=== PATIENT | male | born 1940 | race Caucasian/White ===

== ENCOUNTER → 2017-02-18 | Outpatient (CLI) | payer OTHER ==
[~2017-02-18] MED LIST: IBUP-1449 PO; MULT-1027 PO; NAPR-1169 PO
== END | disposition home or self-care (01) ==
LOC: C.LAB 10:41
PROVIDERS: ATTEND Urology
DX: C61 Malignant neoplasm of prostate (principal)

== ENCOUNTER → 2017-03-25 | Outpatient (CLI) | payer OTHER ==
[2017-03-25 17:49] LABS: ALT/SGPT 31 U/L (12-78); AST/SGOT 18 U/L (15-37); BLOOD UREA NITROGEN 17 mg/dl (7-18); BUN/CREATININE RATIO 15.1 (10-20); CALCIUM 9.7 mg/dl (8.5-10.1); CARBON DIOXIDE 30 mmol/L (21-32); CHLORIDE 105 mmol/L (98-107); GLUCOSE 102 mg/dl (70-99); POTASSIUM 4.1 mmol/L (3.5-5.1); SODIUM 140 mmol/L (136-145)
[2017-03-25 17:50] LABS: ALB/GLOB RATIO 1.1 (0.9-2); ALKALINE PHOSPHATASE 74 U/L (45-117)
== END | disposition home or self-care (01) ==
LOC: C.LABBFT 10:07
PROVIDERS: ATTEND Nurse Practitioner
DX: M54.5 Low back pain (principal)

== ENCOUNTER → 2017-03-25 | Outpatient (CLI) | payer OTHER ==
--- NOTE | 2017-03-25 14:55 | DIAGNOSTIC IMAGING REPORT ---
LEFT KNEE 1 OR 2 VIEWS ROUTINE CLINICAL HISTORY: Left knee pain. COMPARISON: None FINDINGS: Alignment of the left knee is anatomic. There is no acute fracture or joint effusion. A small bone island within the proximal left tibia is incidentally noted. Joint spaces are preserved. IMPRESSION: Unremarkable left knee radiographs. Electronically signed by: Virgil Dukes M.D. 03/25/2017 2:54 PM Dictated Date/Time: 03/25/2017 2:52 PM
== END | disposition home or self-care (01) ==
LOC: C.RAD 14:36
PROVIDERS: ATTEND Nurse Practitioner
DX: M25.562 Pain in left knee (principal); M54.5 Low back pain

== ENCOUNTER → 2017-03-28 | Outpatient (CLI) | payer OTHER ==
[~2017-03-28] MED LIST changes: +GADAVIST IV PRN
--- NOTE | 2017-03-28 08:12 | DIAGNOSTIC IMAGING REPORT ---
MRI LUMBAR SPINE COMBINATION CLINICAL HISTORY: C61 Prostate [id number] Low back pain radiating to left legMRI6 TECHNIQUE: Sagittal and axial T1, T2 and STIR images were obtained. Imaging was performed before and after the administration of 6.5 cc of intravenous Gadavist. COMPARISON STUDY: No previous studies for comparison. OBSERVATIONS: The vertebral bodies and posterior elements appear intact. There is no abnormal bony signal present to suggest a marrow replacement process. L1-2: No disc protrusions or extrusions. No evidence of spinal canal or neural foraminal compromise. L2-3: There is a minor circumferential disc bulge. There is no significant spinal or foraminal stenosis L3-4: There is a mild circumferential disc bulge. There is mild spinal stenosis. There is no significant foraminal narrowing. L4-5: There is a small left paracentral disc protrusion. There is a left posterior central osteophytic spurring. There is anterior thecal sac deformity. There is mild spinal stenosis. There is mild bilateral foraminal narrowing L5-S1: There are postsurgical changes of a left hemilaminectomy. No disc herniations are visualized. There is no spinal or foraminal stenosis. The conus medullaris and cauda equina appear normal. Postcontrast images reveal no pathologically enhancing lesions. On sagittal images, there is a suggestion of a T11-12 central disc protrusion IMPRESSION: 1. No evidence of pathologic marrow replacement 2. Probable T11-T12 central disc protrusion. 3. Disc bulge and mild spinal stenosis the L3-4 level 4. Left paracentral disc protrusion with associated bony spurring at the L4-5 level. This results in thecal sac deformity and mild spinal stenosis. There is mild bilateral foraminal narrowing 5. Postsurgical changes at the L5-S1 level. Electronically signed by: Gene Morales M.D. 03/28/2017 8:11 AM Dictated Date/Time: 03/28/2017 8:05 AM
== END | disposition home or self-care (01) ==
LOC: C.MRI 06:48
PROVIDERS: ATTEND Nurse Practitioner
DX: C61 Malignant neoplasm of prostate (principal); M54.5 Low back pain; M51.26 Other intervertebral disc displacement, lumbar region

== ENCOUNTER → 2017-09-04 | Outpatient (CLI) | payer OTHER ==
[~2017-09-04] MED LIST changes: -GADAVIST IV PRN
== END | disposition home or self-care (01) ==
LOC: C.LAB 13:21
PROVIDERS: ATTEND Urology
DX: C61 Malignant neoplasm of prostate (principal)

== ENCOUNTER → 2018-03-10 | Outpatient (CLI) | payer OTHER | END | disposition home or self-care (01) | LOC: C.LAB 13:28 | PROVIDERS: ATTEND Urology | DX: C61 Malignant neoplasm of prostate (principal) ==

== ENCOUNTER 2019-03-21 12:58 | Inpatient (IN) ==
--- OUTSIDE RECORDS SUMMARY | 2019-03-21 13:01 | External Medical Summary | Continuity of Care Document ---
:1940 Author Name Masoud Mace, Provider Address Unavailable Unavailable , Care Team Providers Name Role Phone [email or web address] YASMANY RAMON M.D. Unavailable Unavailable Unavailable Unavailable Unavailable Problems Hypertension (401.9) (I10) Malignant neoplasm of prostate (185) (C61) Urinary symptom or sign (788.99) (R39.9) Malignant neoplasm of prostate (185) (C61) Neoplasm of prostate, malignant (185) (C61) Malignant neoplasm metastatic to bone (198.5) (C79.51) Sciatica (724.3) (M54.30) Low back pain radiating to left leg (724.2) (M54.5) Knee pain (719.46) (M25.569) Ecchymosis (459.89) (R58) Allergies and Adverse Reactions No Known Drug Allergies (Allergy) Medications Lupron Depot (6-Month) 45 MG Intramuscul ar Kit; INJECT 45 MG Intramuscular Medication to be administered in office Nakita Mcdonough Start: 019 Refills: 0 Status: Admin Reques norma Naproxen 500 MG Oral Tablet; TAKE 1 TABLET EVERY 12 HO URS WITH FOOD. GÓMEZ Osuna Start: 25-Mar-2017 Quantity: 60 Refills: 1 Alfuzosin HCl ER 10 MG Oral Tablet Exten ded Release 24 Hour; TAKE 1 TABLET Daily after supper Nakita Mcdonough Start: 06-Jan-2019 Quantity: 90 Refills: 3 Potassium 75 MG TABS; TAKE 3 TABLET Weekly Start: 11-Jul-2012 Refills: 0 Multi-Vitamin Oral Tablet; TAKE 1 TABLET DAILY. Start: 11-Jul-2012 Refills: 0 Procedures Total PSA Date: 23-Feb-2019 History of Back Surgery Status: Complete d Immunizations Tetanus On: 27-Apr-2010 0:00 Family History Unknown Family Member Family history of Father At Age ___ Status: Active Comments: Family History Family history of Mother At Age ___ Status: Active Comments: Family History Family history of Prostate Cancer (V16.42) Status: Active Comments: Family History Family history of Heart Disease (V17.49) Status: Active Comments: Family History Grandfather Family history of Prostate Cancer (V16.42) Status: Active Father Family history of Heart Disease (V17.49) Status: Active Social History - Smoking Status Former smoker Plan of Treatment Planned Encounters Appointment; Maxim Mcdonough M.D. Start: 31-Aug-2019 10:15 Request Planned Observations Planned Goals not documented Results No Known Results Results not documented Encounters Appointment; Maxim Mcdonough M.D. 23-Feb-2019 10:30 Encounter Diagnosis: Problem not documented Appointment; Maxim Mcdonough M.D. 20-Jan-2019 13:30 Encounter Diagnosis: Problem not documented Appointment; Urology, Room 8 20-Jan-2019 13:20 Encounter Diagnosis: Problem not documented Appointment; Maxim Mcdonough M.D. 06-Jan-2019 14:15 Encounter Diagnosis: Problem not documented Appointment; Urology, Nursing [facility] 29-Dec-2018 13:00 Encounter Diagnosis: Problem not documented Appointment; Angela Osuna CRNP 29-Oct-2018 16:30 Encounter Diagnosis: Problem not documented Appointment; [facility], Nurse 15-Oct-2018 11:00 Encounter Diagnosis: Problem not documented Appointment; Maxim Mcdonough M.D. 08-Sep-2018 16:45 Encounter Diagnosis: Problem not documented Appointment; Maxim Mcdonough M.D. 11-Mar-2018 9:45 Encounter Diagnosis: Problem not documented Appointment; Maxim Mcdonough M.D. 21-Oct-2017 11:10 Encounter Diagnosis: Problem not documented Appointment; Maxim Mcdonough M.D. 09-Sep-2017 10:20 Encounter Diagnosis: Problem not documented Appointment; Angela Osuna CRNP 25-Mar-2017 14:00 Encounter Diagnosis: Problem not documented Appointment; Maxim Mcdonough M.D. 31-Aug-2019 10:15 Encounter Diagnosis: Problem not documented
[2019-03-21 13:42] LABS: Basophils # (auto) 0.01 K/uL (0-0.2); Basophils % (auto) 0.1 %; Hematocrit (blood only) 38.2 % (42-52); Hemoglobin 13.9 g/dL (14.0-18.0); Immature Granulocytes # (auto) 0.03 K/uL (0.00-0.02); Immature Granulocytes % (auto) 0.3 %; Lymphocytes # (auto) 0.95 K/uL (1.2-3.4); Lymphocytes % (auto) 8.3 %; Mean Corpuscular Hgb Conc 36.4 g/dL (32-36); Mean Corpuscular Volume 88.4 fL (80-100); Mean Platelet Volume 9.5 fL (7.4-10.4); Monocytes # (auto) 0.54 K/uL (0.11-0.59); Monocytes % (auto) 4.7 %; Neutrophils # (auto) 9.93 K/uL (1.4-6.5); Neutrophils % (auto) 86.6 %; Platelet Count 254 K/uL (130-400); RDW Coefficient of Variation 13.4 % (11.5-14.5); RDW Standard Deviation 43.8 fL (36.4-46.3); Red Blood Count 4.32 M/uL (4.7-6.1); White Blood Count 11.46 K/uL (4.8-10.8)
[2019-03-21 13:58] LABS: BUN Creatinine Ratio 8.4 (10-20); Calcium 10.3 mg/dl (8.5-10.1); Creatinine Clr Calc Pharmacy 15.3 ml/min; Est GFR (African American) 19.1; Est GFR (Non-African American) 16.5
[2019-03-21 14:01] LABS: Globulin 4.2 gm/dl (2.5-4.0); Total Protein 8.2 gm/dl (6.4-8.2)
[2019-03-21] MEDS ORDERED: fentaNYL citrate 100 MCG/2 ML VIAL IV STA (14:15)
[2019-03-21] MEDS ORDERED: PIPERACILLIN/TAZOBACTAM 4.5 GM/120 ML BAG IV ONE (15:08)
[2019-03-21] MEDS ORDERED: PIPERACILL/TAZOBAC CONSULT ACTIVE PRN (15:08)
[2019-03-21 15:15] LABS: Appearance Urine Cloudy (Clear); Bilirubin Urine Negative (Negative); Blood Urine 3+ (Negative); Epithelial Cell Urine Auto >30 /lpf (0-5); Glucose Urine UA Negative (Negative); Ketones Urine 2+ (Negative); Leukocyte Esterase Urine 1+ (Negative); Nitrite Urine Negative (Negative); Protein Urine 1+ (Negative); RBC Urine Automated >30 /hpf (0-4); Specific Gravity Urine 1.022 (1.000-1.030); Urobilinogen Urine Negative (Negative)
[2019-03-21 15:17] LABS: Color Urine Amber
[2019-03-21] MEDS ORDERED: CIPROFLOXACIN 400 MG/200 ML BAG IV STA (15:18)
--- NOTE | 2019-03-21 15:21 | CT Scan Report ---
CT OF THE ABDOMEN AND PELVIS WITHOUT CONTRAST CLINICAL HISTORY: Abdominal pain suprapubic, prostate CA, hematuria, ARF. COMPARISON STUDY: No previous studies for comparison. TECHNIQUE: Axial images of the abdomen and pelvis were obtained without IV contrast. Images were revi ewed in the axial, sagittal, and coronal planes. Automated exposure control was utilized for the deepak dy. A dose lowering technique was utilized adhering to the principles of ALARA. FINDINGS: A cyst adjacent to the distal IVC is noted. No pneumatosis, pneumoperitoneum or portal veno us gas is present. No renal, ureteral or bladder calculi are present. There is no hydronephrosis or h ydroureter. A Galloway balloon is present within the bladder. There is trace gas within the bladder. Mod erate bladder wall thickening is noted. The prostate is moderately enlarged. There is extensive low-a ttenuation extraperitoneal fluid centered anterior to the bladder. Multiple locules of extraluminal g as are present within the extraperitoneal space. There is no pneumoperitoneum. Adjacent infiltration is noted. A small amount of intraperitoneal fluid is also noted. Unenhanced images of the liver, sple en, adrenal glands, kidneys and pancreas are unremarkable. Is no biliary or pancreatic ductal dilatat ion. There is no evidence for a bowel obstruction. Note is made of colonic diverticulosis without bob dence for acute diverticulitis. There are no suspicious osseous lesions. IMPRESSION: 1. Extraperitoneal fluid with multiple locules of extraluminal gas anterior to the bladder. Galloway bal loon within the bladder with bladder wall thickening and enlargement of the prostate. The findings ar e nonspecific but raise the possibility of an extraperitoneal bladder injury. No pneumoperitoneum. Ho wever, intraperitoneal bladder injury cannot be excluded given small amount of peritoneal fluid. Find ings discussed with Dr. Hinds at time of dictation. 2. No urinary calculi or hydronephrosis. 3. Colonic diverticulosis without evidence for acute diverticulitis. Electronically signed by: Virgil Dukes M.D. 03/21/2019 3:19 PM
[2019-03-21 15:26] LABS: Bacteria Urine Automated 1+ (Negative)
--- NOTE | 2019-03-21 15:43 | History & Physical Report ---
Date of Service March 21, 2019 Assessment & Plan (1) Ruptured bladder: Patient is ruptured bladder is undetermined whether it is traumatic or not it could be related to the progression of his prostate cancer. Medline search reveals this is typically treated conservatively with a good bladder drainage. Because of concern of air seen in the retroperitoneal space patient be continued on antibiotics with ciprofloxacin urine culture is been sent (2) Hypertension: Patient's blood pressure is elevated in the ER is not clear whether this is situational long-standing he does have a history of hypertension. Patient is in some pain. Currently will only have PRN antihypertensive medications unless this becomes a trend and then we will perhaps use more of a standard of routine 1. (3) Prostate cancer: Patient's prostate cancer was diagnosed in 2000 he is been without treatment since that time. Is unclear whether this may become friable and created a rupture however it would not explain the evidence of air seen. Urology will be consulted (4) Acute kidney injury: Patient is acute kidney injury is unclear what his baseline creatinine his baseline GFR is. If this is from obstructive uropathy as suggested by his history this should improve with drainage of his bladder. We will follow his renal function and not involve urology unless he has problems with stubbornness of renal function improvement or problems with acid-base disorder or potassium. (5) DVT prophylaxis: Because of his hematuria, I am hesitant to use chemoprophylaxis for DVT at this time. He however does have malignancy which places him at high risk. If his hematuria reduces with Galloway catheter drainage consideration for chemoprophylaxis for DVT should be undertaken History of Present Illness Primary Care Provider: Ankur Aden MD 78-year-old male with a history of untreated prostate cancer since 2000 is having difficulty urinating for several months. He is been discussing this with Dr. Huston but is been resistant to any type of therapy or treatment for his prostate cancer or his urinary urgency and difficulty with urination. 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 He had an old catheter at home which he did use at some point in the distant past perhaps associated with his spine surgery, a self cath himself. He says he felt catheterization what easy and he did produce urine however he developed persistent continual sharp crampy lower abdominal pain below the umbilicus. Patient presented to the emergency department a CT scan was obtained it appears she is a ruptured bladder with air-fluid levels in his retroperitoneal space anteriorly. It is not felt this is in his peritoneal space at this time. Urology on-call was contacted and they felt this could be treated conservatively we will follow in consultation Patient still believes he did not do anything out of the ordinary or use any additional force to create such an issue. Patient also has acute kidney injury likely based on obstructive uropathy from his growing prostate cancer. His creatinine is 3.4 without evidence of acidosis or hyperkalemia Allergies Allergy/AdvReac Type Severity Reaction Status Date / Time No Known Allergies Allergy Mild Unverified 04/05/15 14:05 Home Medications Home Medications Medication Instructions Recorded Confirmed Type alfuzosin 10 mg PO QPM 03/21/19 03/21/19 History Past Med/Surg History Medical History UTI (urinary tract infection) (Resolved) Acute kidney injury BPH (benign prostatic hyperplasia) GERD (gastroesophageal reflux disease) Hypertension Prostate cancer Ruptured bladder Surgical History H/O inguinal hernia repair History of lumbar laminectomy Hx of appendectomy Family History Father Stroke Other No pertinent family history Social History marital status: Current Living Situation: Spouse Feels Safe at Home: Yes Smoking Status: Former smoker Hx Alcohol Use: Yes (Occasional) Review of Systems Review of Systems: ROS: well nourished well developed. No double vision blurry vision No problems with speech or swallowing No palpitations, chest pain or pressure No Wheezing or breathing issues Centralized lower abdominal pain which is worse with movement Urinary frequency and difficulty urinating now with bloody urine No focal joint pain or muscle pain No skin rashes or oral lesions No unusual bruising or bleeding No focused back pain or numbness or loss of strength No changes in memory or confusion Physical Exam Physical Exam: The patient appeared well nourished and normally developed. Vital signs as documented. Some hypertension Head exam is unremarkable. normocephalic, atraumatic Neck is without jugular venous distension, thyromegaly, or lymphademopathy Lungs are clear to auscultation and percussion. Cardiac exam reveals Rhythm is regular. First and second heart sounds normal. Abdominal exam reveals hypoactive bowel sounds tender to the lower quadrant some rebound some guarding Extremities are nonedematous and both pedal pulses are present Neurologic exam is A&Ox3, no focal deficits, strength is equal bilateral Psychologically seems neither anxious or depressed Skin is warm Dry without bruises or lesions Results & Data Vital Signs (Past 12 Hours) Vital Signs Temp Pulse Resp BP Pulse Ox 03/21/19 13:00 36.6 C 94 H 18 191/92 H [address] abdomen and pelvis without contrast : Extraperitoneal fluid with multiple locules of extraluminal gas anterior to the bladder. Galloway balloon within the bladder with bladder wall thickening and enlargement of the prostate. The findings are nonspecific but raise the possibility of an extraperitoneal bladder injury. No pneumoperitoneum. However, intraperitoneal bladder injury cannot be excluded given small amount of peritoneal fluid. No urinary calculi or hydronephrosis. Colonic diverticulosis without evidence for acute diverticulitis
[2019-03-21] MEDS ORDERED: MoRPHine SULFATE 2 MG/ML CARP IV PRN (17:32)
[2019-03-21] MEDS ORDERED: ONDANSETRON INJ 2 MG/ML 2 ML VIAL IV PRN (17:32)
[2019-03-21] MEDS ORDERED: cloNIDine HCl 0.1 MG TAB PO PRN (17:32)
[2019-03-21] MEDS ORDERED: ACETAMINOPHEN 500 MG TAB PO PRN (17:32)
--- NOTE | 2019-03-21 18:32 | Emergency Department Note ---
Entered by Claudia Cheney acting as a scribe for Josselin Hinds MD History of Present Illness General Chief complaint: Urinary Symptoms Stated complaint: THINKS HE HAS A BLADDER/KIDNEY INFECTION Source: patient History of Present Illness Onset (ago): day(s) (yesterday morning) Location: abdomen (lower left) Severity: similar to prior episodes (UTI from 2001) Maximum Pain Intensity: 9 Quality: + other (urinary symptoms) Associated symptoms: + other (Positive burning with urination, blood in his urine, blocked catheter, lower left sided abdominal pain) The patient is a 78 year old male who presents to the Emergency Room with complaints of urinary symptoms beginning yesterday morning. He states yesterday morning, he had blood in his urine and burning with urination. He reports this morning he had difficulty with urination, so he put in a catheter that he had from a previous UTI in 2001 and there was bloody urine output again and he believes the catheter is blocked. The patient is unsure if his bladder feels full and he believes he may have a bladder infection. Pt has lower left sided abdominal pain and states this feels similar to his episode from 2001. Pt has prostate cancer and follows with Dr. Shelton, Oncology. Home Medications Home Medications Medication Instructions Recorded Confirmed Type alfuzosin 10 mg PO QPM 03/21/19 03/21/19 History Allergies Allergy/AdvReac Type Severity Reaction Status Date / Time No Known Allergies Allergy Mild Unverified 04/05/15 14:05 Past Med/Surg History Social History Preferred Language: Telugu Communication Ability: Effective Director Of Hospitality Required: No Beliefs That Will Affect Care: None marital status: Current Living Situation: Significant Other Other Information That Helps Us Care for You: No Feels Safe at Home: Yes Safety Concerns: Feels Safe At This Time Smoking Status: Never smoker Do You Dip or Chew Tobacco: No Hx Alcohol Use: Yes Alcohol type: beer Hx Substance Use: No Review of Systems See HPI for pertinent positives & negatives. and A total of 10 systems reviewed and were otherwise negative Physical Exam Vital Signs Vital Signs - 24 hr 03/21/19 23:39 03/22/19 07:12 03/22/19 15:54 Temperature 36.8 C 36.9 C 36.9 C Temperature Source Oral Oral Oral Pulse Rate [Finger] 76 79 87 Respiratory Rate 18 16 16 Respiratory Depth Normal Normal Blood Pressure [Left Arm] 168/72 H 147/76 H 163/72 H Blood Pressure Mean [Left Arm] 104 99 102 Blood Pressure Position [Left Arm] Lying Lying Lying Pulse Oximetry 98 97 95 Oxygen Delivery Method Room Air Room Air Room Air Vital signs reviewed. General: Well-appearing male, in no significant distress. HEENT: No scleral icterus, PERRLA, neck supple. Atraumatic. Cardiovascular: Regular rate and rhythm, no extra sounds. Pulmonary: Clear to auscultation bilaterally, normal work of breathing. Abdomen: Soft, positive bowel sounds. Slightly distended abdomen with tenderness to the bilateral lower quadrant. Positive guarding Musculoskeletal: Atraumatic, no peripheral edema. Neurologic: Patient awake alert and oriented x 3 Skin: Warm, dry, no rash Course 1310: The patient was evaluated in room A10. A complete history and physical examination was performed. 1528: I discussed the patient's case with Dr. Mcdonough, Urology. He recommends the patient be evaluated for further management. 1538: I discussed the patient's case with Dr. Bolden, [facility] Hospitalist. He will evaluate the patient for further management. Administered Medications Sodium Chloride (Nss 1000ml) 1,000 mls @ 125 mls/hr IV .Q8H SHANNON Stop: 04/20/19 17:44 Last Admin: 03/22/19 18:18 Dose: 125 mls/hr Documented by: [id number] Infusion: 03/22/19 17:41 Dose: 125 mls/hr Documented by: [id number] Admin: 03/22/19 09:41 Dose: 125 mls/hr Documented by: [id number] Infusion: 03/22/19 09:41 Dose: 125 mls/hr Documented by: [id number] Admin: 03/22/19 02:49 Dose: 125 mls/hr Documented by: [id number] Infusion: 03/22/19 02:49 Dose: 125 mls/hr Documented by: [id number] Infusion: 03/21/19 22:04 Dose: 125 mls/hr Documented by: [id number] Admin: 03/21/19 19:10 Dose: 125 mls/hr Documented by: [id number] Ciprofloxacin (Cipro) 400 mg in 200 mls @ 100 mls/hr IV Q12H SHANNON Stop: 03/31/19 09:59 Last Infusion: 03/22/19 09:43 Dose: 0 mls/hr Documented by: [id number] Admin: 03/22/19 07:43 Dose: 100 mls/hr Documented by: [id number] Piperacillin Sod/Tazobactam (Sod 3.375 gm/ Dextrose) 115 mls @ 28.75 mls/hr IV Q8H [facility]; Protocol Stop: 03/31/19 07:59 Last Infusion: 03/22/19 15:48 Dose: 0 mls/hr Documented by: [id number] Admin: 03/22/19 12:06 Dose: 28.8 mls/hr Documented by: [id number] Infusion: 03/22/19 07:47 Dose: 0 mls/hr Documented by: [id number] Admin: 03/22/19 04:00 Dose: 28.8 mls/hr Documented by: [id number] Infusion: 03/22/19 00:28 Dose: 0 mls/hr Documented by: [id number] Admin: 03/21/19 20:24 Dose: 28.8 mls/hr Documented by: [id number] Discontinued Medications Fentanyl Citrate (Fentanyl Citrate) 50 mcg IV NOW STA Stop: 03/21/19 14:16 Last Admin: 03/21/19 14:40 Dose: 50 mcg Documented by: [id number] Piperacillin Sod/Tazobactam Sod (Zosyn) 4.5 gm in 120 mls @ 240 mls/hr IV NOW ONE Stop: 03/21/19 15:37 Last Infusion: 03/21/19 16:35 Dose: 0 mls/hr Documented by: [id number] Admin: 03/21/19 16:05 Dose: 240 mls/hr Documented by: [id number] Ciprofloxacin (Cipro) 400 mg in 200 mls @ 200 mls/hr IV NOW STA Stop: 03/21/19 16:17 Last Infusion: 03/21/19 19:10 Dose: 0 mls/hr Documented by: [id number] Admin: 03/21/19 16:35 Dose: 200 mls/hr Documented by: [id number] Medical Decision Making Differential Diagnosis Differential diagnosis: Etiologies such as UTI, appendicitis, diverticulitis, PUD, biliary pathology, UTI, pancreatitis, obstruction, mesenteric ischemia, aortic pathology, infections, inflammatory bowel disease, renal colic, as well as others were entertained. Medical Records Attestation: I reviewed the patient's medical records. Home Medications Current Medication List: was personally reviewed by me Laboratory Data Attestation: I reviewed the patient's lab results. Result diagrams: 03/21/19 13:32 03/22/19 07:31 Lab Results 03/21/19 03/21/19 03/21/19 Range/Units 13:32 13:32 14:45 WBC 11.46 H (4.8-10.8) K/uL RBC 4.32 L (4.7-6.1) M/uL Hgb 13.9 L (14.0-18.0) g/dL Hct 38.2 L (42-52) % MCV 88.4 (80-100) fL MCH 32.2 (25-34) pg MCHC 36.4 H (32-36) g/dL RDW Std Deviation 43.8 (36.4-46.3) fL RDW Coeff of Shila 13.4 (11.5-14.5) % Plt Count 254 (130-400) K/uL MPV 9.5 (7.4-10.4) fL Immature Gran % (Auto) 0.3 % Neut % (Auto) 86.6 % Lymph % (Auto) 8.3 % [place] % (Auto) 4.7 % Eos % (Auto) 0.0 % Baso % (Auto) 0.1 % Immature Gran # (Auto) 0.03 H (0.00-0.02) K/uL Neut # (Auto) 9.93 H (1.4-6.5) K/uL Lymph # (Auto) 0.95 L (1.2-3.4) K/uL [place] # (Auto) 0.54 (0.11-0.59) K/uL Eos # (Auto) 0.00 (0-0.5) K/uL Baso # (Auto) 0.01 (0-0.2) K/uL Sodium 137 (136-145) mmol/L Potassium 4.0 (3.5-5.1) mmol/L Chloride 105 (98-107) mmol/L Carbon Dioxide 27 (21-32) mmol/L Anion Gap 5.0 (3-11) BUN 29 H (7-18) mg/dl Creatinine 3.42 H (0.6-1.4) mg/dl Est Cr Clr Drug Dosing 15.3 ml/min Est GFR ( Amer) 19.1 Est GFR (Non-Af Amer) 16.5 BUN/Creatinine Ratio 8.4 L (10-20) Glucose 113 H (70-99) mg/dl Calcium 10.3 H (8.5-10.1) mg/dl Total Bilirubin 1.0 (0.2-1) mg/dl AST 14 L (15-37) U/L ALT 23 (12-78) U/L Alkaline Phosphatase 81 (45-117) U/L Total Protein 8.2 (6.4-8.2) gm/dl Albumin 4.0 (3.4-5.0) gm/dl Globulin 4.2 H (2.5-4.0) gm/dl Albumin/Globulin Ratio 1.0 (0.9-2) Lipase 60 L (73-393) U/L Urine Color Ria Urine Appearance Cloudy A (Clear) Urine pH 6.0 (4.5-7.5) Ur Specific [place] 1.022 (1.000-1.030) Urine Protein 1+ H (Negative) Urine Glucose (UA) Negative (Negative) Urine Ketones 2+ H (Negative) Urine Blood 3+ H (Negative) Urine Nitrite Negative (Negative) Urine Bilirubin Negative (Negative) Urine Urobilinogen Negative (Negative) Ur Leukocyte Esterase 1+ H (Negative) Urine WBC (Auto) 10-30 H (0-5) /hpf Urine RBC (Auto) >30 H (0-4) /hpf U Hyaline Cast (Auto) 1-5 (0-5) /lpf U Epithel Cells (Auto) >30 H (0-5) /lpf Urine Bacteria (Auto) 1+ H (Negative) Ur Renal Epithelial Cell Not Reportable 03/22/19 Range/Units 07:31 WBC (4.8-10.8) K/uL RBC (4.7-6.1) M/uL Hgb (14.0-18.0) g/dL Hct (42-52) % MCV (80-100) fL MCH (25-34) pg MCHC (32-36) g/dL RDW Std Deviation (36.4-46.3) fL RDW Coeff of Shila (11.5-14.5) % Plt Count (130-400) K/uL MPV (7.4-10.4) fL Immature Gran % (Auto) % Neut % (Auto) % Lymph % (Auto) % [place] % (Auto) % Eos % (Auto) % Baso % (Auto) % Immature Gran # (Auto) (0.00-0.02) K/uL Neut # (Auto) (1.4-6.5) K/uL Lymph # (Auto) (1.2-3.4) K/uL [place] # (Auto) (0.11-0.59) K/uL Eos # (Auto) (0-0.5) K/uL Baso # (Auto) (0-0.2) K/uL Sodium 141 (136-145) mmol/L Potassium 3.6 (3.5-5.1) mmol/L Chloride 110 H (98-107) mmol/L Carbon Dioxide 26 (21-32) mmol/L Anion Gap 5.0 (3-11) BUN 13 D (7-18) mg/dl Creatinine 1.26 D (0.6-1.4) mg/dl Est Cr Clr Drug Dosing 46.6 ml/min Est GFR ( Amer) 63.8 Est GFR (Non-Af Amer) 55.0 BUN/Creatinine Ratio 10.0 (10-20) Glucose 113 H (70-99) mg/dl Calcium 8.5 D (8.5-10.1) mg/dl Total Bilirubin (0.2-1) mg/dl AST (15-37) U/L ALT (12-78) U/L Alkaline Phosphatase (45-117) U/L Total Protein (6.4-8.2) gm/dl Albumin (3.4-5.0) gm/dl Globulin (2.5-4.0) gm/dl Albumin/Globulin Ratio (0.9-2) Lipase (73-393) U/L Urine Color Urine Appearance (Clear) Urine pH (4.5-7.5) Ur Specific [place] (1.000-1.030) Urine Protein (Negative) Urine Glucose (UA) (Negative) Urine Ketones (Negative) Urine Blood (Negative) Urine Nitrite (Negative) Urine Bilirubin (Negative) Urine Urobilinogen (Negative) Ur Leukocyte Esterase (Negative) Urine WBC (Auto) (0-5) /hpf Urine RBC (Auto) (0-4) /hpf U Hyaline Cast (Auto) (0-5) /lpf U Epithel Cells (Auto) (0-5) /lpf Urine Bacteria (Auto) (Negative) Ur Renal Epithelial Cell Imaging Data Radiologist's Impression: Radiology results as stated below per my review and the radiologist's interpretation: CT OF THE ABDOMEN AND PELVIS WITHOUT CONTRAST CLINICAL HISTORY: Abdominal pain suprapubic, prostate CA, hematuria, ARF. COMPARISON STUDY: No previous studies for comparison. TECHNIQUE: Axial images of the abdomen and pelvis were obtained without IV contrast. Images were reviewed in the axial, sagittal, and coronal planes. Automated exposure control was utilized for the study. A dose lowering technique was utilized adhering to the principles of ALARA. FINDINGS: A cyst adjacent to the distal IVC is noted. No pneumatosis, pneumoperitoneum or portal venous gas is present. No renal, ureteral or bladder calculi are present. There is no hydronephrosis or hydroureter. A Galloway balloon is present within the bladder. There is trace gas within the bladder. Moderate bladder wall thickening is noted. The prostate is moderately enlarged. There is extensive low-attenuation extraperitoneal fluid centered anterior to the bladder. Multiple locules of extraluminal gas are present within the extraperitoneal space. There is no pneumoperitoneum. Adjacent infiltration is noted. A small amount of intraperitoneal fluid is also noted. Unenhanced images of the liver, spleen, adrenal glands, kidneys and pancreas are unremarkable. Is no biliary or pancreatic ductal dilatation. There is no evidence for a bowel obstruction. Note is made of colonic diverticulosis without evidence for acute diverticulitis. There are no suspicious osseous lesions. IMPRESSION: 1. Extraperitoneal fluid with multiple locules of extraluminal gas anterior to the bladder. Galloway balloon within the bladder with bladder wall thickening and enlargement of the prostate. The findings are nonspecific but raise the possibility of an extraperitoneal bladder injury. No pneumoperitoneum. However, intraperitoneal bladder injury cannot be excluded given small amount of peritoneal fluid. Findings discussed with Dr. Hinds at time of dictation. 2. No urinary calculi or hydronephrosis. 3. Colonic diverticulosis without evidence for acute diverticulitis. Electronically signed by: Virgil Dukes M.D. 03/21/2019 3:19 PM Blood Pressure Blood Pressure Findings: Elevated blood pressure Blood Pressure Disposition: further management by hospitalist [facility] Narrative This patient was evaluated and appeared to be in no significant distress. Patient's physical exam reveals significant tenderness to the bilateral lower quadrants with positive guarding. A Galloway catheter was placed and is draining a blood tinged urine. CT scan of the abdomen pelvis was performed and reveals free fluid and evidence of an extraperitoneal bladder rupture. This is likely secondary to the patient's self-catheterization. Clearly no irrigation of the Galloway catheter was performed. As the patient used an old catheter and "Vaseline" to catheterize earlier and had subsequent pain and pressure, passing clots, IV Zosyn was ordered. The patient was hydrated with normal saline solution. Case was discussed with Dr. Mcdonough of urology and the patient will be admitted to Dr. Bolden of the hospitalist service. Patient was informed of the findings and plan and agrees. Impression & Plan Bladder rupture, Acute renal failure Discharge Plan Visit Data *Final* Discharge Date/Time: 03/21/19 17:04 Chief Complaint: Urinary Symptoms Stated Complaint: THINKS HE HAS A BLADDER/KIDNEY INFECTION ED Provider: Josselin Hinds Discharge Problem: Bladder rupture, Acute renal failure Patient Disposition: Admitted As Inpatient Discharge Instructions Interventions: ED Discharge Assessment Last Done: 03/21/19 17:04 Discharge Problem: Acute renal failure Qualifiers: Acute renal failure type: unspecified Qualified Code(s): N17.9 - Acute kidney failure, unspecified The scribe's documentation has been prepared under my direction and personally reviewed by me in its entirety. I confirm that the note above accurately reflects all work, treatment, procedures, and medical decision making performed by me.
[2019-03-21] MEDS: SODIUM CHLORIDE 0.9% 1000ML 1,000 ML IV SCH (19:10)
--- NOTE | 2019-03-21 19:12 | Urology Consultation ---
Date of Consultation March 21, 2019 Assessment & Plan (1) Bladder rupture: Assessment Most likely bladder rupture from the patient's attempt at catheterizing himself Since this is extraperitoneal it can be managed conservatively with Galloway catheter drainage I would continue him on broad-spectrum antibiotics Follow his creatinine I again discussed possible palliative radiation which the patient again refused He also refused a oncology consult I did tell him that he is probably going to have the catheter for the rest of his life as the prostate cancer is probably obstructing his urethra He seems to be okay with this and does not want any further treatment other than the Lupron shots which is been getting for years History of Present Illness Attending Physician: Baldo Bolden MD History of Present Illness Patient is a 78-year-old white male with hormone refractory prostate cancer. He was diagnosed in 2000 with a [place] 4+4 adenocarcinoma with a PSA of 38 at that time he refused any treatment which was offered including prostatectomy or radiation. He was lost to follow-up until 2006 when he came in with urinary retention PSA at that time was up to 683. At that time he agreed to going on Lupron which was initiated. His PSA did drop. Recently though he has become hormone refractory he was placed on Xtandi but could not tolerate the medication due to nausea and vomiting. We have discussed treatment on multiple visits including the most last visit where we talked about seeing oncology for possible other treatments or radiation therapy for palliative radiation to the prostate he has been starting to have some troubles voiding and I thought the palliative radiation may improve that. Again though the patient refused any therapy other than the Lupron shots. He apparently had trouble voiding yesterday tried to pass a catheter and was unsuccessful and apparently either perforated the prostatic fossa or his bladder. He came in with lower abdominal pain. CT showed an extraperitoneal rupture of his urinary tract. He currently has a Galloway indwelling which is draining 600 cc of meka-colored urine he says his abdomen is a lot smaller than it was when he came in and the pain is much less he denies any nausea vomiting fevers or chills Allergies Allergy/AdvReac Type Severity Reaction Status Date / Time No Known Allergies Allergy Mild Unverified 04/05/15 14:05 Home Medications Home Medications Medication Instructions Recorded Confirmed Type alfuzosin 10 mg PO QPM 03/21/19 03/21/19 History Patient History Medical History UTI (urinary tract infection) (Resolved) Acute kidney injury BPH (benign prostatic hyperplasia) GERD (gastroesophageal reflux disease) Hypertension Prostate cancer Ruptured bladder Surgical History H/O inguinal hernia repair History of lumbar laminectomy Hx of appendectomy Social History marital status: Current Living Situation: Spouse Feels Safe at Home: Yes Smoking Status: Former smoker Hx Alcohol Use: Yes (Occasional) Physical Exam Physical Exam: Well-developed well-nourished white male in no acute distress Neurologically he is alert and oriented x3 Lungs clear to auscultation Abdomen is softly distended tender in the suprapubic region Remedies without clubbing cyanosis or edema Results & Data Vital Signs (Past 12 Hours) Vital Signs Temp Pulse Resp BP Pulse Ox 03/21/19 17:04 96 H 26 H 165/89 H 98 03/21/19 17:01 96 H 26 H 165/89 H 98 03/21/19 16:31 77 19 160/79 H 97 03/21/19 15:32 81 24 177/85 H 95 03/21/19 13:00 36.6 C 94 H 18 191/92 H 99 Laboratory Results Laboratory Results - last 24 hr 03/21/19 03/21/19 03/21/19 13:32 13:32 14:45 WBC 11.46 H RBC 4.32 L Hgb 13.9 L Hct 38.2 L MCV 88.4 MCH 32.2 MCHC 36.4 H RDW Std Deviation 43.8 RDW Coeff of Shila 13.4 Plt Count 254 MPV 9.5 Immature Gran % (Auto) 0.3 Neut % (Auto) 86.6 Lymph % (Auto) 8.3 [place] % (Auto) 4.7 Eos % (Auto) 0.0 Baso % (Auto) 0.1 Immature Gran # (Auto) 0.03 H Neut # (Auto) 9.93 H Lymph # (Auto) 0.95 L [place]christ # (Auto) 0.54 Eos # (Auto) 0.00 Baso # (Auto) 0.01 Sodium 137 Potassium 4.0 Chloride 105 Carbon Dioxide 27 Anion Gap 5.0 BUN 29 H Creatinine 3.42 H Est Cr Clr Drug Dosing 15.3 Est GFR ( Amer) 19.1 Est GFR (Non-Af Amer) 16.5 BUN/Creatinine Ratio 8.4 L Glucose 113 H Calcium 10.3 H Total Bilirubin 1.0 AST 14 L ALT 23 Alkaline Phosphatase 81 Total Protein 8.2 Albumin 4.0 Globulin 4.2 H Albumin/Globulin Ratio 1.0 Lipase 60 L Urine Color [place] Urine Appearance Cloudy A Urine pH 6.0 Ur Specific [place] 1.022 Urine Protein 1+ H Urine Glucose (UA) Negative Urine Ketones 2+ H Urine Blood 3+ H Urine Nitrite Negative Urine Bilirubin Negative Urine Urobilinogen Negative Ur Leukocyte Esterase 1+ H Urine WBC (Auto) 10-30 H Urine RBC (Auto) >30 H U Hyaline Cast (Auto) 1-5 U Epithel Cells (Auto) >30 H Urine Bacteria (Auto) 1+ H Ur Renal Epithelial Cell Not Reportable Diagnostic Findings Laboratory Results - last 24 hr 03/21/19 03/21/19 03/21/19 13:32 13:32 14:45 WBC 11.46 H RBC 4.32 L Hgb 13.9 L Hct 38.2 L MCV 88.4 MCH 32.2 MCHC 36.4 H RDW Std Deviation 43.8 RDW Coeff of Shila 13.4 Plt Count 254 MPV 9.5 Immature Gran % (Auto) 0.3 Neut % (Auto) 86.6 Lymph % (Auto) 8.3 [place] % (Auto) 4.7 Eos % (Auto) 0.0 Baso % (Auto) 0.1 Immature Gran # (Auto) 0.03 H Neut # (Auto) 9.93 H Lymph # (Auto) 0.95 L [place] # (Auto) 0.54 Eos # (Auto) 0.00 Baso # (Auto) 0.01 Sodium 137 Potassium 4.0 Chloride 105 Carbon Dioxide 27 Anion Gap 5.0 BUN 29 H Creatinine 3.42 H Est Cr Clr Drug Dosing 15.3 Est GFR ( Amer) 19.1 Est GFR (Non-Af Amer) 16.5 BUN/Creatinine Ratio 8.4 L Glucose 113 H Calcium 10.3 H Total Bilirubin 1.0 AST 14 L ALT 23 Alkaline Phosphatase 81 Total Protein 8.2 Albumin 4.0 Globulin 4.2 H Albumin/Globulin Ratio 1.0 Lipase 60 L Urine Color [place] Urine Appearance Cloudy A Urine pH 6.0 Ur Specific [place] 1.022 Urine Protein 1+ H Urine Glucose (UA) Negative Urine Ketones 2+ H Urine Blood 3+ H Urine Nitrite Negative Urine Bilirubin Negative Urine Urobilinogen Negative Ur Leukocyte Esterase 1+ H Urine WBC (Auto) 10-30 H Urine RBC (Auto) >30 H U Hyaline Cast (Auto) 1-5 U Epithel Cells (Auto) >30 H Urine Bacteria (Auto) 1+ H Ur Renal Epithelial Cell Not Reportable patient's CT was reviewed and appears that he has an extraperitoneal fluid collection outside the bladder probably urine Galloway catheter is within the bladder there does not appear to be an intraperitoneal rupture
[2019-03-21] MEDS: PIPERACILLIN/TAZOBACTAM 3.375 GM in DEXTROSE 5% 100 ML IV SCH (20:24)
[2019-03-22] MEDS: SODIUM CHLORIDE 0.9% 1000ML 1,000 ML IV SCH ×3 (02:49→18:18)
[2019-03-22] MEDS: PIPERACILLIN/TAZOBACTAM 3.375 GM in DEXTROSE 5% 100 ML IV SCH ×3 (04:00→21:45)
[2019-03-22] MEDS: CIPROFLOXACIN 400 MG/200 ML BAG IV SCH ×2 (07:43→20:11)
[2019-03-22 08:27] LABS: Calcium 8.5 mg/dl (8.5-10.1); Creatinine Clr Calc Pharmacy 46.6 ml/min; Est GFR (African American) 63.8; Potassium 3.6 mmol/L (3.5-5.1)
--- NOTE | 2019-03-22 10:42 | Urology Progress Note ---
Date of Service March 22, 2019 Subjective Patient is afebrile vital signs are stable Having some bladder spasms Patient says abdomen feels better than yesterday Urine output 1800 cc Creatinine down to 1.2 Physical exam Abdomen soft normal bowel sounds Extremity's without calf pain or edema Assessment Bladder/prostatic urethra injury We will need to keep the catheter for 3 to 4 weeks Since he was trying to cath himself because he could not void he may wind up keeping the catheter permanently he will need to be changed monthly especially since he refuses any treatment for his prostate cancer or prostatic urethral obstruction. I did explain this to him using to think about what he wants to do. Results & Data Vital Signs (Past 12 Hours) Vital Signs Temp Pulse Resp BP Pulse Ox 03/22/19 07:12 36.9 C 79 16 147/76 H 97 03/21/19 23:39 36.8 C 76 18 168/72 H 98
[2019-03-22] MEDS: OXYBUTYNIN CHLORIDE 5 MG TAB PO SCH (20:14)
--- NOTE | 2019-03-22 21:27 | Hospitalist Progress Note ---
Date of Service March 22, 2019 Assessment & Plan (1) Ruptured bladder: - Possibly related to trauma from self-cath vs progressive issues with prostate CA - Abdominal pain is improving currently no rigidity or guarding; plan for conservative management - Galloway catheter at this time and likely indefinitely given his ongoing urinary symptoms - UCx obtained and pending - Continue Ciprofloxacin at this time (2) Acute kidney injury: - This is likely in the setting of obstructive uropathy - was 3+ on admission and currently resolved at 1.26 - Continue to monitor Present on Admission?: Yes (3) Hypertension: - Chronic elevation in-house - Possibly situational but possibility of chronic - Clonidine Q8H PRN (4) Prostate cancer: - Diagnosed in 2000 - receives Lupron injections but has been reluctant to undergo any other forms of treatment/oncology referral (5) DVT prophylaxis: - SCDs; consideration for further DVT prophylaxis pending hematuria improvement Supervising Physician Co-Signing Physician Notes PA Supervision Note: I did not personally see or examine the patient today, but I verified all [place] points of BALAJI Mackay's assessment and plan with the following exceptions/additions: None Subjective Reports feeling a lot better today. Some mild tenderness in suprapubic region but not rigid or findings to suggest an acute abdomen. Is bloated and reports he is still moving his bowels without issue. Tolerating a diet and hoping to return home tomorrow. He verbalizes no other complaints. Review of Systems Constitutional: no fever and no chills Respiratory: no cough and no dyspnea Cardiovascular: no chest pain, no palpitations and no edema Gastrointestinal: + abdominal pain (suprapubic) and + diarrhea/loose stools; no nausea, no vomiting and no constipation Genitourinary: + dysuria (mild burning - improving) and + hematuria Physical Exam Constitutional: well developed and well nourished; no acute distress and not ill appearing Respiratory: normal respiratory effort, lungs clear to auscultation Cardiovascular: RRR, no murmur, no edema Gastrointestinal (Abdomen): Inspection/Auscultation: + abdomen distended and normal bowel sounds Percussion/Palpation: + abdomen tender (suprapubic) and abdomen soft; no guarding and abdomen not rigid Musculoskeletal: Head/Neck/Chest: normocephalic and head atraumatic Neurologic: moves all extremities Psychiatric: A+Ox3, euthymic affect Results & Data Vital Signs (Past 12 Hours) Vital Signs Temp Pulse Resp BP Pulse Ox 03/22/19 15:54 36.9 C 87 16 163/72 H 95
[2019-03-23] MEDS: SODIUM CHLORIDE 0.9% 1000ML 1,000 ML IV SCH ×2 (02:39→10:55)
[2019-03-23 07:23] LABS: Hematocrit (blood only) 30.9 % (42-52); Hemoglobin 10.9 g/dL (14.0-18.0); Mean Corpuscular Hgb Conc 35.3 g/dL (32-36); Mean Corpuscular Volume 88.8 fL (80-100); Mean Platelet Volume 9.3 fL (7.4-10.4); Platelet Count 182 K/uL (130-400); RDW Coefficient of Variation 13.7 % (11.5-14.5); RDW Standard Deviation 44.6 fL (36.4-46.3); Red Blood Count 3.48 M/uL (4.7-6.1); White Blood Count 5.88 K/uL (4.8-10.8)
[2019-03-23 07:56] LABS: BUN Creatinine Ratio 12.3 (10-20); Calcium 8.4 mg/dl (8.5-10.1); Creatinine Clr Calc Pharmacy 73.4 ml/min; Est GFR (African American) 100.6; Est GFR (Non-African American) 86.8; Potassium 3.4 mmol/L (3.5-5.1)
[2019-03-23] MEDS: CIPROFLOXACIN 400 MG/200 ML BAG IV SCH (08:27)
[2019-03-23] MEDS: OXYBUTYNIN CHLORIDE 5 MG TAB PO SCH ×2 (08:27→21:09)
--- NOTE | 2019-03-23 08:38 | Urology Progress Note ---
Date of Service March 23, 2019 Assessment & Plan (1) Prostate cancer: 78YO male with prostate cancer, bladder injury. Galloway in place, patient feeling better. Again discussed his disease. He is again offered radiation, oncology, and palliative care consults which he again declines. He is encouraged to think about his options and contact our office if he would like us to coordinate. Will arrange outpatient follow up with Dr. Mcdonough in 3-4 weeks, patient is agreeable to this. Likely cath change at that time. Will continue to intermittently follow along while patient remains in house. Please reconsult our service with additional questions/concerns. Subjective 78YO male with prostate cancer, bladder injury. Galloway in place, draining yellow urine. Patient feeling well. No fever/chills. No nausea/vomiting. Still some lower abdominal discomfort, likely bladder spasm. Review of Systems Review of Systems: All systems reviewed & are unremarkable except as noted in HPI & below Physical Exam Physical Exam: WN/WD NAD. No JVD, no edema. Resp effort normal. Abd soft, nontender. : bladder nondistended; Galloway in place, patent, draining yellow urine. A&O x 3, appropriate affect. Results & Data Vital Signs (Past 12 Hours) Vital Signs Temp Pulse Pulse Resp BP Pulse Ox 03/23/19 07:34 36.7 C 72 21 172/86 H 96 03/22/19 23:30 36.9 C 72 20 149/77 H 96
--- NOTE | 2019-03-23 17:37 | Hospitalist Progress Note ---
Date of Service March 23, 2019 Assessment & Plan (1) Ruptured bladder: - Possibly related to trauma from self-cath vs progressive issues with prostate CA - Abdominal pain is improving currently no rigidity or guarding; plan for conservative management -- Having spasmodic episodes but severe enough today he asked for morphine as he normally hasn't requested pain medication - Galloway catheter at this time and likely indefinitely given his ongoing urinary symptoms - UCx obtained and < 1000 colonies - Oxybutynin 5 mg BID - Continue Ciprofloxacin at this time - likely to complete 14 day course given prostatic issues - Urology following - discussed with [facility] today - ongoing conservative manage ment with F/U to be arranged by their office (2) Acute kidney injury: - This is likely in the setting of obstructive uropathy - was 3+ on admission and currently resolved at 0.80 - Continue to monitor (3) Hypertension: - Chronic elevation in-house - Possibly situational but possibility of chronic - Clonidine Q8H PRN (4) Prostate cancer: - Diagnosed in 2000 - receives Lupron injections but has been reluctant to undergo any other forms of treatment/oncology referral (5) DVT prophylaxis: - SCDs; consideration for further DVT prophylaxis pending hematuria improvement Disposition: Due to pain requiring IV morphine discussed remaining in-house to assess for further pain needs; Likely D/C tomorrow with Galloway and outpatient F/U with Urology 3-4 weeks and likely Galloway exchange at that time as long as pain is manageable Supervising Physician Co-Signing Physician Notes PA Supervision Note: I did not personally see or examine the patient today, but I verified all [place] points of BALAJI Hernandes's assessment and plan with the following exceptions/additions: None Subjective Reports feeling well today. Continues with pain but normally doesn't want medication for this. However, this afternoon he reports increased pain and did require IV Morphine. Reports its mostly a burning sensation and largely correlates when he is trying to move his bowels. He states he strains a little bit but is trying to be easy with this. States it does help him to walk around and does appear that he is having some bladder spasms Continues to make adequate urine and tolerating diet. States abdominal bloat is almost to his baseline. Review of Systems Constitutional: no fever and no chills Respiratory: no cough and no dyspnea Cardiovascular: no chest pain, no palpitations and no edema Gastrointestinal: + abdominal pain (suprapubic - spasmodic) and + diarrhea/loose stools; no nausea, no vomiting and no constipation Genitourinary: + dysuria (mild burning - improving) Physical Exam Constitutional: well developed and well nourished; no acute distress and not ill appearing Eyes: + anicteric sclerae ENMT: Ears: no hearing impairment Neck: normal visual inspection and trachea midline Respiratory: normal respiratory effort, lungs clear to auscultation Cardiovascular: RRR, no murmur, no edema Gastrointestinal (Abdomen): Inspection/Auscultation: + abdomen distended and normal bowel sounds Percussion/Palpation: + abdomen tender (suprapubic) and abdomen soft; no guarding and abdomen not rigid Musculoskeletal: Head/Neck/Chest: normocephalic and head atraumatic Skin: no rashes, warm and dry Neurologic: moves all extremities Psychiatric: A+Ox3, euthymic affect Results & Data Vital Signs (Past 12 Hours) Vital Signs Temp Pulse Pulse Resp BP Pulse Ox 03/23/19 15:00 36.5 C 67 17 158/75 H 98 03/23/19 07:34 36.7 C 72 21 172/86 H 96
[2019-03-23] MEDS: CIPROFLOXACIN 500 MG TAB PO SCH (21:09)
[2019-03-23] MEDS: OXYCODONE HCL IR 5 MG TAB (IMMEDIATE RELEASE) PO PRN (23:39)
[2019-03-24 07:17] VITALS: PULSE 74; TEMP 97.3; O2SAT 98
[2019-03-24] MEDS: OXYCODONE HCL IR 5 MG TAB (IMMEDIATE RELEASE) PO PRN ×2 (07:33→13:51)
[2019-03-24 07:38] LABS: BUN Creatinine Ratio 14.7 (10-20); Calcium 8.5 mg/dl (8.5-10.1); Creatinine Clr Calc Pharmacy 70.8 ml/min; Est GFR (African American) 99.1; Est GFR (Non-African American) 85.5; Potassium 3.5 mmol/L (3.5-5.1)
[2019-03-24 08:08] VITALS: BP 162/76
[2019-03-24] MEDS: CIPROFLOXACIN 500 MG TAB PO SCH (08:48)
[2019-03-24] MEDS: OXYBUTYNIN CHLORIDE 5 MG TAB PO SCH (08:48)
[2019-03-24 09:02] LABS: Hematocrit (blood only) 33.8 % (42-52); Hemoglobin 11.5 g/dL (14.0-18.0); Mean Corpuscular Volume 89.7 fL (80-100); Mean Platelet Volume 9.7 fL (7.4-10.4); Platelet Count 209 K/uL (130-400); RDW Coefficient of Variation 13.4 % (11.5-14.5); RDW Standard Deviation 44.2 fL (36.4-46.3); Red Blood Count 3.77 M/uL (4.7-6.1); White Blood Count 5.63 K/uL (4.8-10.8)
--- NOTE | 2019-03-24 14:41 | Discharge Summary ---
Date of Service March 24, 2019 Admission HPI Per Admitting Provider 78-year-old male with a history of untreated prostate cancer since 2000 is having difficulty urinating for several months. He is been discussing this with Dr. Huston but is been resistant to any type of therapy or treatment for his prostate cancer or his urinary urgency and difficulty with urination. In the intensive care nurse hours of 03/21 the patient felt he could not urinate at all. He had an old catheter at home which he did use at some point in the distant past perhaps associated with his spine surgery, a self cath himself. He says he felt catheterization what easy and he did produce urine however he developed persistent continual sharp crampy lower abdominal pain below the umbilicus. Patient presented to the emergency department a CT scan was obtained it appears she is a ruptured bladder with air-fluid levels in his retroperitoneal space anteriorly. It is not felt this is in his peritoneal space at this time. Urology on-call was contacted and they felt this could be treated conservatively we will follow in consultation Patient still believes he did not do anything out of the ordinary or use any additional force to create such an issue. Patient also has acute kidney injury likely based on obstructive uropathy from his growing prostate cancer. His creatinine is 3.4 without evidence of acidosis or hyperkalemia Admission Exam Per Admitting Provider The patient appeared well nourished and normally developed. Vital signs as documented. Some hypertension Head exam is unremarkable. normocephalic, atraumatic Neck is without jugular venous distension, thyromegaly, or lymphademopathy Lungs are clear to auscultation and percussion. Cardiac exam reveals Rhythm is regular. First and second heart sounds normal. Abdominal exam reveals hypoactive bowel sounds tender to the lower quadrant some rebound some guarding Extremities are nonedematous and both pedal pulses are present Neurologic exam is A&Ox3, no focal deficits, strength is equal bilateral Psychologically seems neither anxious or depressed Skin is warm Dry without bruises or lesions Principal Diagnosis Ruptured Bladder Discharge Exam General: Resting comfortably in no apparent distress; A&OX3 HEENT: NC/AT; PERRLA with EOMI; [place] conjunctiva, MMM. No erythema of posterior pharynx Neck: Supple and nontender Cardiac: RRR w/o murmurs, gallops or rubs Lungs: CTA bilaterally Abdomen: Bowel normoactive X 4; Tenderness to light palpation over suprapubic region Extremities: Warm. No edema present Neuro: No focal weakness Skin: No rash Discharge Data Allergies Allergy/AdvReac Type Severity Reaction Status Date / Time No Known Allergies Allergy Mild Unverified 04/05/15 14:05 Consultations 03/21/19 15:34 ED Decision to Admit Stat 03/21/19 17:32 Consult Case Management - Discharge Planning Routine Consult Urology Routine Ordered Studies 03/21/19 14:14 CT abd pelvis wo con Stat Hospital Course (1) Ruptured bladder: Possibly related to trauma from self-cath vs progressive issues with prostate CA. Cobb catheter was placed. Urology consulted, appreciate input. UC showed <1,000 colonies. Cipro was started for empiric coverage, will complete a 14 day course. Ditropan 5 mg BID was ordered for bladder spasms and Oxycodone for pain control. Abd pain improved and he had good urine output. He was stable for discharge to home on 03/24/19. Will need to follow up with urology in 3-4 weeks for evaluation. (2) Acute kidney injury: Likely in the setting of obstructive uropathy. Creatinine was >3 at admiss ion, now WNL. (3) Hypertension: Chronically elevated, possibly related to hospital stay. Clonidine was ordered prn. Does not have anti-hypertensives at home. (4) Prostate cancer: Diagnosed in 2000 - receives Lupron injections but has been reluctant to undergo any other forms of treatment/oncology referral. (5) DVT prophylaxis: SCDs. Pt. was stable for discharge to home on 03/24/19. Total Time Total Time Spent Total Time Spent (In Minutes): >30 minutes Total Time Includes: Examination of the Patient, Discharge Planning, Medication Reconciliation, Communication With Other Providers and Other Discharge Plan Discharge Items Patient Disposition: Home - Self-Care Reason For Visit: ACUTE KIDNEY INJURY, TRAUMATIC BLADDER RUPTURE Discharge Diagnosis: Ruptured Bladder Condition: Good Discharge Goals: Decrease discomfort, Diagnostic testing, Improve disease control, Improve function, Increase independence, Prevent disease and Therapeutic intervention Activity: As commented below Exercise/Sports: Wait until after follow-up appointment Non-emergency contact: Primary Care Provider and Urologist Call non-emergency contact if: you have any medication questions, your symptoms worsen, your pain is not controlled, your pain is worsening, your pain is unusual for you, your pain is concerning for you, you have a fever, your wound has increased redness, your wound has increased drainage and your wound pain has increased Follow-up/Referrals: Óscar Aden MD [Primary Care Provider] - 03/30/19 2:30 pm (Please, follow up with Dr. Aden on SaturdayMarch 30 at 2:30 pm. *If you need to change this appointment, call the office at [phone].) Diet: Regular and Low Potassium (2gm) Addtl Provider Instructions: 1. Ruptured Bladder * Please continue cobb catheter care at home. You will need to follow up with Dr. Mcdonough in 3-4 weeks -- their office will contact you with the time/date of this appointment. * Please take Ditropan 5 mg twice daily scheduled for bladder spasms. * You may take Tylenol 1,000 mg every 6 hours as needed for mild pain. * You may take Oxycodone 10 mg every 4 hours as needed for moderate to severe pain. * Please complete a course of Ciprofloxacin for coverage of a urinary tract infection (end date: 04/04/19) * Prescriptions for Ditropan and Ciprofloxacin were sent to your pharmacy. A written prescription was provided for Oxycodone 10 mg tablets. 2. Please follow up with your primary care provider as scheduled on 03/30/19. Prescriptions: New ciprofloxacin HCl 500 mg Tablet 500 mg PO BID Qty: 23 RF: 0 oxycodone 5 mg Tablet 10 mg PO Q4H PRN (Reason: moderate to severe pain) 3 Days Qty: 18 RF: 0 oxybutynin chloride 5 mg Tablet 5 mg PO BID 30 Days Qty: 60 RF: 0 Continued alfuzosin 10 mg tablet extended release 24 hr 10 mg PO QPM RF: 0 Stand-Alone Forms: [employer], Opioid Pain Management [facility]/Other Patient Handouts: Catheter Bag Urinary Empty Clean, Catheter Indwelling Urinary Dc, Leg Bag Care Dc Discharge Orders: Discharge Order (Routine); Ordered 03/24/19 Ordered By: Ladonna Mackay Admission Data Admit Date/Time: 03/21/19 15:53 Attending Provider: Dodie Salazar Admit Provider: Baldo Bolden Primary Care Provider: Óscar Aden Other Providers: Baldo Bolden ; Maxim Mcdonough Service: Medical Other Interventions: Discharge Summary Assessment (RN) Last Done: 03/24/19 12:43 Pending Studies at Discharge: No DC Date/Time DO NOT enter until pt leaves facility: 03/24/19 14:24 Supervising Physician Co-Signing Physician Notes PA Supervision Note: I personally saw and examined the patient. I verified all [place] points and agree with BALAJI Mackay with the following exceptions and/or additions: Patient feels his pain is much improved and is localized more to the suprapubic region rather than all over his mid abdomen like it was upon admission. He is tolerating p.o. without nausea or vomiting. He moved his bowels today. He is making plenty of urine and it is all coming out in the bag. No hematuria. No fevers. No chest pain shortness of breath Vitals reviewed Gen: AAOx3, NAD HEENT: Anicteric sclerae, EOMI CV: RRR no mgr nl S1S2 Pulm: CTAB no wcr Abd: +BS soft positive tenderness palpation in the suprapubic region without guarding or rebound tenderness Ext: No edema, 2+ DP pulses Skin: No rashes, warm/dry Neuro: Full strength throughout 78-year-old male here with bladder rupture secondary to Cobb catheterization trauma and acute kidney injury-acute kidney injury is resolved with IV fluids and relief of urinary obstruction secondary to prostate cancer. Cobb catheter is draining well. Expect bladder rupture to heal on its own as per urology Continue Cipro for prophylaxis -Follow-up with urology closely as directed If blood pressures continue to be elevated at primary care provider follow-up appointment, would recommend treatment
== END 2019-03-24 14:24 | disposition home or self-care (01) | DRG 699 ==
LOC: ED 12:58 → 3W 15:53 → SUATTDRO 15:53 → 3W 17:04
DX: C61 Malignant neoplasm of prostate; I10 Essential (primary) hypertension; Y92.009 Unspecified place in unspecified non-institutional (private) residence as the place of occurrence of the external cause; N40.1 Benign prostatic hyperplasia with lower urinary tract symptoms; T83.028A Displacement of other urinary catheter, initial encounter; N17.9 Acute kidney failure, unspecified; Y84.6 Urinary catheterization as the cause of abnormal reaction of the patient, or of later complication, without mention of misadventure at the time of the procedure; K21.9 Gastro-esophageal reflux disease without esophagitis; S37.29XA Other injury of bladder, initial encounter

== ENCOUNTER 2022-05-22 14:20 | Observation (INO) ==
[2022-05-22 16:55] LABS: Hematocrit (blood only) 34.8 % (42-52); Hemoglobin 11.7 g/dL (14.0-18.0); Mean Corpuscular Hemoglobin 30.3 pg (25-34); Mean Corpuscular Hgb Conc 33.6 g/dL (32-36); Mean Corpuscular Volume 90.2 fL (80-100); Mean Platelet Volume 9.8 fL (7.4-10.4); Platelet Count 192 K/uL (130-400); RDW Coefficient of Variation 13.5 % (11.5-14.5); RDW Standard Deviation 44.8 fL (36.4-46.3); Red Blood Count 3.86 M/uL (4.7-6.1); White Blood Count 7.49 K/uL (4.8-10.8)
[2022-05-22 17:05] LABS: Anion Gap 9 (3-11); BUN Creatinine Ratio 27.7 (10-20); Blood Urea Nitrogen 23 mg/dl (6-23); Calcium 9.2 mg/dl (8.5-10.1); Carbon Dioxide 23 mmol/L (21-32); Chloride 103 mmol/L (98-107); Est GFR (African American) 96.3 ml/min; Est GFR (Non-African American) 83.1 ml/min; Glucose 97 mg/dl (70-99(Fasting)); Potassium 3.6 mmol/L (3.5-5.1); Sodium 135 mmol/L (136-145)
--- NOTE | 2022-05-22 17:30 | Emergency Department Note ---
History of Present Illness General Chief complaint: Catheter Replacement Stated complaint: NEW CATHETER TODAY, BLEEDING FROM [facility] Time Seen by Provider: 05/22/22 17:23 Source: patient and family ( who is at the bedside) Mode of arrival: ambulatory Limitations: no limitations History of Present Illness This patient is a-year-old male has history of chronic Galloway catheter and gets it changed monthly in the urologist office. They changed his usual 18 Wol[place] today and he went home and noticed that he was bleeding so he came to the ER he is abdominal discomfort. It was pulled by the nurses as it was clearly not draining and appeared to be clotted. The patient has no numbness or weakness no fever chills. his says they do not typically have trouble putting the catheter in. They said it seemed a little difficult today. No nausea vomiting or chest pain. Denies blood thinners. Home Medications Medication Instructions Recorded Confirmed Type acetaminophen 500 mg tablet 1,000 mg PO DIRECTED PRN 04/01/22 05/22/22 History (Tylenol Extra Strength) oxycodone-acetaminophen 5 mg-325 1 tab PO Q6H PRN #30 tab 05/04/22 05/22/22 Rx mg tablet (Percocet) water for irrigation, sterile See Rx Instructions IRRIGATION 05/10/22 05/22/22 Rx DAILY PRN #500 ml Allergies Allergy/AdvReac Type Severity Reaction Status Date / Time No Known Allergies Allergy Mild Verified 05/22/22 18:10 Past Med/Surg History Medical History Acute kidney injury BPH (benign prostatic hyperplasia) GERD (gastroesophageal reflux disease) Hematuria Hypertension Prostate cancer Ruptured bladder Urinary incontinence UTI (urinary tract infection) Surgical History H/O inguinal hernia repair History of lumbar laminectomy Hx of appendectomy Family History Father Stroke Heart disease Grandfather (Paternal) Prostate cancer Denies family history of Ovarian cancer Diabetes Myocardial infarction Breast cancer Colorectal cancer Social History Smoking Status: Never smoker Second Hand Exposure: No; Hx Alcohol Use: Yes Alcohol type: beer Alcohol Intake Frequency: 4 or More x per/Week Alcohol Intake Frequency Comment: a couple on Saturday and Saturday Hx Substance Use: No Preferred Language: Japanese Communication Ability: Effective Visual Impairment: No Limitations Hearing Ability: Hard of Hearing Manager Energy Required: No Beliefs That Will Affect Care: None marital status: Current Living Situation: Significant Other Current Living Situation Comment: lives with his significant other current occupational status: retired current occupation: retired from career with [employer] Feels Safe at Home: Yes Childhood Exposure to Second-Hand Smoke: Yes Dental Care, Regularly: No Physical Activity Frequency: Daily Seatbelt Use: always Sunscreen Use: No Assistive Devices: Glasses Review of Systems A total of 10 systems reviewed and were otherwise negative Physical Exam Vital Signs Vital Signs - 24 hr 05/22/22 15:50 05/22/22 19:27 05/22/22 20:33 Temperature 37.4 C 36.6 C 36.1 C L Temperature Source Temporal Artery Scan Oral Temporal Artery Scan Pulse Rate 105 H Pulse Rate [Apical] 69 Pulse Rate [Left Finger] 99 H Pulse Rhythm [Apical] Regular Pulse Rhythm [Left Finger] Regular Pulse Strength [Left Finger] Normal Respiratory Rate 18 18 12 Respiratory Effort / Characteristics Non-Labored Non-Labored Spontaneous Non-Labored Spontaneous Respiratory Depth Normal Normal Normal Respiratory Pattern Regular Regular Blood Pressure 182/98 H Blood Pressure [Right Arm] 164/94 H 146/84 H Blood Pressure Mean 126 Blood Pressure Mean [Right Arm] 117 104 Blood Pressure Position [Right Arm] Lying Semi-fowlers Pulse Oximetry 98 99 100 Oxygen Delivery Method Room Air Room Air Oxymask Oxygen Flow Rate 6 Sepsis Recent Fever Within 48 Hours No Sepsis New/Unexplained Change in Mental Status N/A Sepsis Action Taken by Nursing No Action Required 05/22/22 20:40 05/22/22 20:50 05/22/22 21:00 Temperature Temperature Source Pulse Rate Pulse Rate [Apical] 72 78 88 Pulse Rate [Left Finger] Pulse Rhythm [Apical] Regular Regular Regular Pulse Rhythm [Left Finger] Pulse Strength [Left Finger] Respiratory Rate 18 19 21 Respiratory Effort / Characteristics Non-Labored Spontaneous Non-Labored Spontaneous Non-Labored Spontaneous Respiratory Depth Normal Normal Normal Respiratory Pattern Regular Regular Regular Blood Pressure Blood Pressure [Right Arm] 136/86 160/85 H 148/66 H Blood Pressure Mean Blood Pressure Mean [Right Arm] 102 110 93 Blood Pressure Position [Right Arm] Semi-fowlers Semi-fowlers Semi-fowlers Pulse Oximetry 100 100 97 Oxygen Delivery Method Oxymask Oxymask Room Air Oxygen Flow Rate 6 6 Sepsis Recent Fever Within 48 Hours Sepsis New/Unexplained Change in Mental Status Sepsis Action Taken by Nursing 05/22/22 21:10 05/22/22 21:20 Temperature 36.6 C Temperature Source Temporal Artery Scan Pulse Rate Pulse Rate [Apical] 90 94 H Pulse Rate [Left Finger] Pulse Rhythm [Apical] Regular Regular Pulse Rhythm [Left Finger] Pulse Strength [Left Finger] Respiratory Rate 22 24 Respiratory Effort / Characteristics Non-Labored Spontaneous Non-Labored Spontaneous Respiratory Depth Normal Normal Respiratory Pattern Regular Regular Blood Pressure Blood Pressure [Right Arm] 156/77 H 150/74 H Blood Pressure Mean Blood Pressure Mean [Right Arm] 103 99 Blood Pressure Position [Right Arm] Semi-fowlers Semi-fowlers Pulse Oximetry 99 98 Oxygen Delivery Method Room Air Room Air Oxygen Flow Rate Sepsis Recent Fever Within 48 Hours Sepsis New/Unexplained Change in Mental Status Sepsis Action Taken by Nursing General: Well developed well nourished older male who appears in no acute distress, breathing comfortably on room air. Normal speech HEENT: Normal cephalic atraumatic. Pupils are equal round and reactive to light. Extraocular movements are intact. Oropharynx is pink with moist mucous membranes. No swelling of the mouth lips or tongue. Neck: Supple with a midline trachea. No meningeal signs or stiffness, no JVD or bruits. No Stridor. Chest: Clear to auscultation bilaterally. No wheezes or rhonchi. No increased work of breathing. Heart: Regular rate and rhythm without murmurs or gallops. Abdomen: Soft, there is some distention and tenderness in the suprapubic area from the bladder. Nondistended without rebound guarding or rigidity. Extremities: No cyanosis clubbing or edema. No calf tenderness or assymetry Spine/Back. Non tender to palpation. No CVA tenderness Skin: Good turgor without rashes. Neurologic exam: Cranial nerves two through 12 are intact. Motor and sensation are intact and symmetrical throughout. Course Administered Medications Discontinued Medications Cefazolin Sodium (Cefazolin 330 Mg/Ml 1 Gm Vial) Confirm Administered Dose 990 mg .ROUTE .STK-MED ONE Stop: 05/22/22 19:47 Last Admin: 05/22/22 20:05 Dose: Not Given Documented by: [id number] Fentanyl Citrate (Fentanyl Citrate 100 Mcg/2 Ml Vial) 25 mcg IV Q5M PRN PRN Reason: PACU Use Only-Pain Stop: 05/23/22 03:17 Last Admin: 05/22/22 21:25 Dose: 25 mcg Documented by: [id number] Admin: 05/22/22 21:00 Dose: 25 mcg Documented by: [id number] Cefazolin Sodium (Ancef 2000mg) 2,000 mg in 15 mls @ 3.75 mls/min IV PREOP ONE Stop: 05/22/22 19:46 Last Admin: 05/22/22 19:49 Dose: 3.75 mls/min Documented by: [id number] Medical Decision Making Differential Diagnosis Urinary retention, infection, injury, BPH, anemia, electrolyte or metabolic Medical Records Attestation: I reviewed the patient's medical records. Home Medications Current Medication List: was personally reviewed by me Laboratory Data Attestation: I reviewed the patient's lab results. Result diagrams: 05/22/22 16:25 05/22/22 16:25 Lab Results 05/22/22 05/22/22 Range/Units 16:25 16:25 WBC 7.49 (4.8-10.8) K/uL RBC 3.86 L (4.7-6.1) M/uL Hgb 11.7 L (14.0-18.0) g/dL Hct 34.8 L (42-52) % MCV 90.2 (80-100) fL MCH 30.3 (25-34) pg MCHC 33.6 (32-36) g/dL RDW Std Deviation 44.8 (36.4-46.3) fL RDW Coeff of Shila 13.5 (11.5-14.5) % Plt Count 192 (130-400) K/uL MPV 9.8 (7.4-10.4) fL Sodium 135 L (136-145) mmol/L Potassium 3.6 (3.5-5.1) mmol/L Chloride 103 (98-107) mmol/L Carbon Dioxide 23 (21-32) mmol/L Anion Gap 9 (3-11) BUN 23 (6-23) mg/dl Creatinine 0.83 (0.6-1.4) mg/dl Est Cr Clr Drug Dosing Not Reportable Est GFR ( Amer) 96.3 ml/min Est GFR (Non-Af Amer) 83.1 ml/min BUN/Creatinine Ratio 27.7 H (10-20) Glucose 97 (70-99(Fasting)) mg/dl Calcium 9.2 (8.5-10.1) mg/dl MDM Narrative This patient comes in as described above. He was placed in room 812. Here for treatment and evaluation of bleeding from his penis and difficulty draining his catheter. The nurse did pull it prior to me seeing him his bladder does feel distended we are going to reinsert the catheter. They reinserted the catheter gently and were able to get about 10 cc back and tried to irrigate it and it clotted off immediately there is a large amount of clot seen around the catheter. I am concerned with a bleeding that there may be bleeding from the prostate from the initial catheter insertion. I did consult Dr. Ram who came and saw the patient. The patient remained hemodynamically stable he has no fever or white count to suggest infection. I did cover him with antibiotics he did receive Rocephin 2 g IV. He has no significant anemia. His normal renal function. He is no acute electrolyte or metabolic abnormalities. Dr. Fulton saw the patient does want to take him to the OR as he is concerned about damage and inability to cath him here. He also asked that I consult the admitting team and we did consult Dr. Russell Impression & Plan Hemorrhage of penis, Prostate cancer, Complication of Galloway catheter, Acute urinary obstruction Discharge Plan Visit Data Chief Complaint: Catheter Replacement Stated Complaint: NEW CATHETER TODAY, BLEEDING FROM [facility] ED Provider: Adolph Angelo Discharge Problem: Hemorrhage of penis, Prostate cancer, Complication of Galloway catheter, Acute urinary obstruction Patient Disposition: Admitted As Inpatient Discharge Instructions Interventions: ED Discharge Assessment Last Done: 05/22/22 19:29
[2022-05-22] MEDS ORDERED: cefTRIAXone SODIUM 2,000 MG/70 ML BAG IV STA (18:50)
--- NOTE | 2022-05-22 19:01 | Anesthesiology Consultation ---
Date of Service May 22, 2022 Assessment & Plan (1) Encounter for pre-operative examination: Chart Review Chart Review: Acceptable Risk for Surgery and Patient NOT seen in Pre Admission Testing Consults Requested none History Surgery Operation Date: 05/22/22 19:30 Proposed Procedures p Cystoscopy, Clot Evacuation, Possible Dilation - Mike Ram DO Height/Weight Weight: 50.2 kg Allergies Allergy/AdvReac Type Severity Reaction Status Date / Time No Known Allergies Allergy Mild Verified 05/22/22 18:10 Medications Home Medications Medication Instructions Recorded Confirmed Last Taken acetaminophen 500 mg tablet 1,000 mg PO DIRECTED PRN 04/01/22 05/22/22 Unknown (Tylenol Extra Strength) oxycodone-acetaminophen 5 mg-325 1 tab PO Q6H PRN #30 tab 05/04/22 05/22/22 Unknown mg tablet (Percocet) water for irrigation, sterile See Rx Instructions IRRIGATION 05/10/22 05/22/22 Unknown DAILY PRN #500 ml Past Medical History Medical History Acute kidney injury BPH (benign prostatic hyperplasia) GERD (gastroesophageal reflux disease) Hypertension Prostate cancer Ruptured bladder Urinary incontinence UTI (urinary tract infection) Past Family History Family History Father Stroke Heart disease Grandfather (Paternal) Prostate cancer Denies family history of Ovarian cancer Diabetes Myocardial infarction Breast cancer Colorectal cancer Past Surgical History Surgical History H/O inguinal hernia repair History of lumbar laminectomy Hx of appendectomy Social History Smoking Status: Never smoker Hx Alcohol Use: Yes Alcohol type: beer alcohol intake frequency: holidays/special occasions only Hx Substance Use: No substance use type: does not use Physical Exam Vital Signs Last Vital Signs Temp 99.3 F 05/22/22 15:50 Pulse 105 H 05/22/22 15:50 Resp 18 05/22/22 15:50 BP 182/98 H 05/22/22 15:50 Pulse Ox 98 05/22/22 15:50 Testing Laboratory Results 05/22/22 16:25 05/22/22 16:25
--- NOTE | 2022-05-22 19:13 | Urology Consultation ---
Date of Consultation May 22, 2022 Assessment & Plan (1) Prostate cancer: (2) Urinary incontinence: (3) Catheter-associated urinary tract infection: Multiple attempts at catheter with significant restriction and issues with catheter. Significant bleeding. Likely urethral trauma with previous attempts. Significant history of bladder rupture in past. Has prostate cancer with significant elevation of PSA and essential untreated at this point. Had considered xtandi and hormone ablation but patient did not tolerate. Neurogenic bladder. Increasing issues with retention and trouble passing catheter. Will need antibiotics and supportive care. Plan to intervene with catheter placement and likely need medical management and monitoring due to significant time without voiding. Risks and benefits discussed at length for procedure. These include bleeding, infection, injury to surrounding tissues or organs, and risks associated with anesthesia. Patient states understanding and agrees to proceed. Will sign consent and schedule. Urgent/emergent with history of bladder rupture. Plan for cystoscopy with possible dilation and catheter placement. History of Present Illness History of Present Illness Consult for urinary issues with hematuria. Catheter exchange today. Hormone Resist Prostate Cancer without active treatment. Severe obstructive issues at baseline. Catheter change was completed but had severe blood clots and inability to empty. Attempt at catheter by ER failed and had more bleeding. Patient has severe discomfort in pelvis and groin going to back and side in waves. Is dealing with acute illness. Has been deconditioned from this. Has decreased mobility significantly with acute issues. Denies significant previous episodes of hematuria as bad as this. Has had bladder rupture in past due to catheter trouble. Has had some minor urinary issues in the past. No severe nausea or vomiting. Currently no fevers. No significant family history of malignancy Known prostate cancer. Has been using catheter for years. Worsening issues with exchanges. Had considered different options. Allergies Allergy/AdvReac Type Severity Reaction Status Date / Time No Known Allergies Allergy Mild Verified 05/22/22 18:10 Home Medications Medication Instructions Recorded Confirmed Type acetaminophen 500 mg tablet 1,000 mg PO DIRECTED PRN 04/01/22 05/22/22 History (Tylenol Extra Strength) oxycodone-acetaminophen 5 mg-325 1 tab PO Q6H PRN #30 tab 05/04/22 05/22/22 Rx mg tablet (Percocet) water for irrigation, sterile See Rx Instructions IRRIGATION 05/10/22 05/22/22 Rx DAILY PRN #500 ml Patient History Medical History Acute kidney injury BPH (benign prostatic hyperplasia) GERD (gastroesophageal reflux disease) Hypertension Prostate cancer Ruptured bladder Urinary incontinence UTI (urinary tract infection) Surgical History H/O inguinal hernia repair History of lumbar laminectomy Hx of appendectomy Family History Father Stroke Heart disease Grandfather (Paternal) Prostate cancer Denies family history of Ovarian cancer Diabetes Myocardial infarction Breast cancer Colorectal cancer Social History Smoking Status: Never smoker Second Hand Exposure: No; Hx Alcohol Use: Yes Alcohol type: beer Alcohol Intake Frequency: 4 or More x per/Week Alcohol Intake Frequency Comment: a couple on Saturday and Saturday Hx Substance Use: No Preferred Language: Ukrainian Communication Ability: Effective Visual Impairment: No Limitations Hearing Ability: Hard of Hearing Payment Poster Required: No Beliefs That Will Affect Care: None marital status: Current Living Situation: Significant Other Current Living Situation Comment: lives with his significant other current occupational status: retired current occupation: retired from career with [employer] Safe at Home: Yes Childhood Exposure to Second-Hand Smoke: Yes Dental Care, Regularly: No Physical Activity Frequency: Daily Seatbelt Use: always Sunscreen Use: No Assistive Devices: Glasses Review of Systems Review of Systems: All systems reviewed & are unremarkable except as noted in HPI & below Physical Exam Physical Exam: General: Alert and oriented x 3 in no acute distress. Patient is well nourished and well kept. HEENT: Normocephalic Atraumatic. Inspection normal. Cranial Nerves 2-12 Grossly intact. Nares are clear. Neck is supple. Normal inspection of face. Normal inspection of neck. Neurologic: No deficits on inspection. Baseline for motor function and sensory. Psychologic: Normal affect. Respiratory: Nonlabored. No use of accessory muscles. No tachypnea or dyspnea. Cardiovascular: No tachycardia Skin: [place] and Dry. No rashes or visible lesions. Extremities: Moving without issues. No motor deficits on inspection Lymphatics: No edema Abdomen: Severely distended bladder with SP tenderness. : blood at meatus. Inability to pass catheter past the bulbar urethra. Significant flexion of catheter with attempted cannlization. Large blood clots with each attempt. No urine. Results & Data ([facility]) Vital Signs (Past 12 Hours) Vital Signs Temp Pulse Resp BP Pulse Ox 05/22/22 15:50 37.4 C 105 H 18 182/98 H 98 PG Care Time/CCT Total # of Minutes Spent Total Time Spent with Patient: Total time spent is greater than 50% in coordination of care (as documented) at patient's floor/unit and/or counseling patient: Coding Level of Care Code 95353 Inpt Consult Level 5 Diagnoses Prostate cancer C61 Urinary incontinence R32 Catheter-associated urinary tract infection T83.511A; N39.0 Encounter type: initial encounter Indwelling urinary catheter type: indwelling urethral catheter (1) Catheter-associated urinary tract infection Encounter type: initial encounter Indwelling urinary catheter type: indwelling urethral catheter Qualified Code(s): T83.511A - Infection and inflammatory reaction due to indwelling urethral catheter, initial encounter; N39.0 - Urinary tract infection, site not specified
[2022-05-22] MEDS ORDERED: ONDANSETRON INJ 2 MG/ML 2 ML VIAL IV PRN (19:17)
[2022-05-22] MEDS ORDERED: ePHEDrine sulfate 50 MG/ML AMP IV PRN (19:17)
[2022-05-22] MEDS ORDERED: ATROPINE SULFATE 0.1 MG/ML 10ML SYR IV PRN (19:17)
[2022-05-22] MEDS ORDERED: PROPOFOL IV EMULSION 10 MG/ML 20 ML VIAL IV ONE (19:18)
[2022-05-22] MEDS ORDERED: LIDOCAINE 2% 2 ML VIAL/AMP(20MG/ML) INFIL ONE (19:19)
[2022-05-22] MEDS ORDERED: ceFAZolin 2000MG 2,000 MG/15 ML SYR IV ONE (19:43)
[2022-05-22] MEDS ORDERED: ceFAZolin 330 MG/ML 1 GM VIAL ONE ×2 (19:46→19:48)
--- NOTE | 2022-05-22 20:36 | Operative Report ---
PG Post Operative Report Pre & Post Diagnosis Operation Date: 05/22/22 19:30 Pre-Op Diagnosis: Urine retention, bleeding from penis, prostate cancer Post-Op Diagnosis: Urine retention, bleeding from penis, prostate cancer I identified the patient and participated in the time-out.: Yes Procedure Operation Date: 05/22/22 19:30 Actual Procedures p Cystoscopy with difficult catheterization, Clot Evacuation, and Dilation(Not Applicable) - Mike Ram, Surgeon Mike Ram, II, DO Lithopone Charger None Estimated Blood Loss 5 Findings Consistent with Post-Op Diagnosis Severe false passage at bulbar urethra with bleeding. False passage along lateral edge and appeared to go into large mass within prostatic urethra. Significant urethral stricture dilated and bypassed. Numerous bleeding irregular masses and lesions throughout prostatic urethra and bladder neck with severe inflammation of bladder. Bladder wall appeared intact with area of scarring. Visualization limited due to bleeding at bladder neck and within prostatic urethra. Specimens None Drains 20 Fr [place] Tip Anesthesia Type MAC Complications none Disposition Disposition: Recovery Room Indications Patient with concern for bleeding from traumatic cobb with possible urethral stricture with untreated prostate cancer. Risks and benefits discussed at length. Description of Procedure Patient was consented and brought back to the operating room. Patient was placed under anesthesia in the supine position and moved to the dorsal lithotomy position. Patient was prepped and draped in the regular sterile fashion. A time out was completed. The meatus was dilated due to narrowing. A 30 degree Cystoscope was placed into the urethra. The scope was advanced and a significant area of false passage just passed the bulbar urethra. The lumen had a significant narrowing/stricture which was discovered in the urethra. A flexible wire was able to be manipulated into the opening. The false passage appeared to enter into the prostate mass/tissue that was obstructing the urethra. The strictured area was dilated and bypassed. Numerous irregular mass like tissue was found throughout the prostate and bladder neck. Significant areas of bleeding and erythema. The scope was then advanced to the bladder and the entire bladder was examined. Severe limitation due to active areas of bleeding from within the prostatic urethra. The UO's were not identified but the bladder neck, trigone, dome, and the other important landmarks were able to be partially visualized. Multiple clots were irrigated out of the bladder. No lesions/suspicious areas were identified on the bladder. Mass appeared to be protruding from the prostate into the bladder. The bladder was inspected a final time. No obvious areas of bladder rupture. Bladder was able to fill appropriately with fluid. Severe spasm of the bladder was noted multiple times during the procedure. The scope was removed. No considerable bleeding from the dilated area. Multiple bleeding areas were found in the prostatic urethra especially the area of false passage. The wire remained in placed. A [place] tip catheter was placed over the wire and positioned into the bladder and set to drainage. This was easily irrigated. The patient was cleaned, aroused from anesthesia, and transferred to the pacu in stable condition having tolerated the procedure well with no complications. I was present and participated in all aspects of the procedure. The patient will be monitored in the PACU until transferred. Catheter will remain until followup for removal. Will likely need to maintain due to worsening obstruction. Patient has previously refused management of pro state cancer. Likely dealing with obstruction and bleeding due to malignancy. Will likely need PSA at some point and would highly consider oncologic management likely with androgen ablation. I attest to the content of the Intraoperative Record and any orders documented therein. Any exceptions are noted below.
--- NOTE | 2022-05-22 20:48 | Anesthesiology Progress Note ---
Date of Service May 22, 2022 Anesthesia Post Procedure Vital Signs Vital Signs: Temp Pulse Pulse Pulse Resp BP BP 05/22/22 20:33 97.0 F L 69 12 146/84 H 05/22/22 19:27 97.9 F 99 H 18 164/94 H 05/22/22 15:50 99.3 F 105 H 18 182/98 H Pulse Ox 05/22/22 20:33 100 05/22/22 19:27 99 05/22/22 15:50 98 Transfer of Care Handoff Completed per policy Notes Mental Status: alert / awake / arousable and participated in evaluation Patient Amnestic to Procedure: Yes Nausea / Vomiting: adequately controlled Pain: adequately controlled Airway Patency, RR, SpO2: stable & adequate BP & HR: stable & adequate Hydration State: stable & adequate Anesthetic Complications: no major complications apparent and Pt Satisfied with anesthetic care
[2022-05-22] MEDS: fentaNYL citrate 100 MCG/2 ML VIAL IV PRN ×2 (21:00→21:25)
--- NOTE | 2022-05-22 21:28 | History & Physical Report ---
Date of Service May 22, 2022 Assessment & Plan (1) Cobb catheter problem: Plan: 82 year old male w/ PMHx of untreated active prostate cancer, neurogenic bladder, and chronic cobb who presents w/ penile bleeding and catheter malfunction in context of likely cancerous bleeding masses in his prostate and bladder. - status post cystoscopy intervention per urology - empiric Rocephin while inpatient - urology consulted - continue cobb. irrigate as needed (2) Prostate cancer: Plan: - long hx of, since 2000; untreated - per urology, did not tolerate attempted treatments in the past (3) Anemia: Plan: - Hb appears stable in the 11s - follow cbc in AM, especially in setting of hematuria Plan: FEN/GI: regular diet. No IV fluids ppx: SCDs. defer chemoppx in setting of cobb trauma and hematuria code: full dispo: med surg History of Present Illness Chief Complaint: catheter complaint and hematuria Primary Care Provider: Ankur Aden MD 82 year old male w/ PMHx of active prostate cancer, neurogenic bladder, and chronic cobb who presents w/ penile bleeding and catheter malfunction. He has monthly cobb exhanges and had a recent exchange earlier in the day. He has progressively had increasing issues during the cobb exchanges. He has had hx of bladder rupture. He presented this evening to the ED for lower abdominal/groin discomfort and hematuria vs penile bleeding. Reinsertions were attempted in the ED but unsuccessful. Urology took the patient urgently for cystoscopy. There was a false passage into the prostatic urethra. Significant urethral stricture dilated and bypassed. The cystoscopy also revealed numerous bleeding irregular masses at the prostate and bladder thought to be from the prostate cancer. Patient was seen after the cystoscopy. He has some right lower abd/groin discomfort and feels sleepy after anesthesia but otherwise denies other complaints. Labs: cbc: Hb 11.7 stable. Na 135. K 3.6. Cr 0.83. ED course: Unsuccessful attempts at cobb reinsertion. Cobb had clots and was not draining. Urology consult. Cystoscopy as per above. Allergies Allergy/AdvReac Type Severity Reaction Status Date / Time No Known Allergies Allergy Mild Verified 05/22/22 18:10 Home Medications Medication Instructions Recorded Confirmed Type acetaminophen 500 mg tablet 1,000 mg PO DIRECTED PRN 04/01/22 05/22/22 History (Tylenol Extra Strength) oxycodone-acetaminophen 5 mg-325 1 tab PO Q6H PRN #30 tab 05/04/22 05/22/22 Rx mg tablet (Percocet) water for irrigation, sterile See Rx Instructions IRRIGATION 05/10/22 05/22/22 Rx DAILY PRN #500 ml cefdinir 300 mg capsule 300 mg PO BID #8 cap 05/23/22 Rx Past Med/Surg History Medical History Acute kidney injury BPH (benign prostatic hyperplasia) GERD (gastroesophageal reflux disease) Hematuria Hypertension Prostate cancer Ruptured bladder Urinary incontinence UTI (urinary tract infection) Surgical History H/O inguinal hernia repair History of lumbar laminectomy Hx of appendectomy Family History Father Stroke Heart disease Grandfather (Paternal) Prostate cancer Denies family history of Ovarian cancer Diabetes Myocardial infarction Breast cancer Colorectal cancer Social History Smoking Status: Never smoker Second Hand Exposure: No; Hx Alcohol Use: Yes Alcohol type: beer Alcohol Intake Frequency: 4 or More x per/Week Alcohol Intake Frequency Comment: a couple on Saturday and Saturday Hx Substance Use: No Preferred Language: Nigerian Communication Ability: Effective Visual Impairment: No Limitations Hearing Ability: Hard of Hearing Field Service Technician Required: No Beliefs That Will Affect Care: None marital status: Single Current Living Situation: Significant Other Current Living Situation Comment: lives with his significant other current occupational status: retired current occupation: retired from career with [employer] How many Children do You have: 1 Feels Safe at Home: Yes Childhood Exposure to Second-Hand Smoke: Yes Dental Care, Regularly: No Physical Activity Frequency: Daily Seatbelt Use: always Sunscreen Use: No Assistive Devices: Cane Review of Systems Review of Systems: All systems reviewed & are unremarkable except as noted in HPI & below + right lower abd /groin pain. + hematuria + fatigue No fever, chills, headache, chest pain, SOB. Physical Exam Physical Exam: General: Grossly A&O. NAD. Cooperative. Appears somnolent after anesthesia. Answering questions appropriately. HEENT: Atraumatic, normocephalic. EOMI Pulm: CTAB. -wheezes, -rales, -rhonchi. No respiratory distress. Cardiac: RRR, -mrg. No LE edema. Abdominal: Nontender, nondistended (on light palpation), soft. : + cobb: tube w/ red drainage Msk: Wearing SCDs. Results & Data Results & Data ([facility]) Vital Signs (Past 12 Hours) Vital Signs Temp Pulse Pulse Pulse Resp BP BP 05/22/22 21:20 36.6 C 94 H 24 150/74 H 05/22/22 21:10 90 22 156/77 H 05/22/22 21:00 88 21 148/66 H 05/22/22 20:50 78 19 160/85 H 05/22/22 20:40 72 18 136/86 05/22/22 20:33 36.1 C L 69 12 146/84 H 05/22/22 19:27 36.6 C 99 H 18 164/94 H 05/22/22 15:50 37.4 C 105 H 18 182/98 H Pulse Ox 05/22/22 21:20 98 05/22/22 21:10 99 05/22/22 21:00 97 05/22/22 20:50 100 05/22/22 20:40 100 05/22/22 20:33 100 05/22/22 19:27 99 05/22/22 15:50 98 Laboratory Results CBC 05/22/22 Range/Units 16:25 WBC 7.49 (4.8-10.8) K/uL RBC 3.86 L (4.7-6.1) M/uL Hgb 11.7 L (14.0-18.0) g/dL Hct 34.8 L (42-52) % Plt Count 192 (130-400) K/uL Comprehensive Metabolic Panel 05/22/22 Range/Units 16:25 Sodium 135 L (136-145) mmol/L Potassium 3.6 (3.5-5.1) mmol/L Chloride 103 (98-107) mmol/L Carbon Dioxide 23 (21-32) mmol/L BUN 23 (6-23) mg/dl Creatinine 0.83 (0.6-1.4) mg/dl Glucose 97 (70-99(Fasting)) mg/dl Calcium 9.2 (8.5-10.1) mg/dl Intake and Output 05/22/22 05/22/22 05/22/22 06:59 14:59 22:59 Intake Total 700 / 700 Output Total 205 / 205 Balance 495 / 495 Intake: IV Perioperative 700 / 700 Output: Estimated Blood Loss 5 / 5 Urine Amount (Catheter) 200 / 200 Cobb/Indwelling 200 / 200 Other: Weight 50.2 kg Patient Weight 05/23/22 06:59 Weight 50.2 kg Code Status & VTE Plan VTE Prophylaxis Plan VTE Prophylaxis will be ordered: Yes Supervising Physician Co-Signing Physician Notes Attending addendum: I have physically seen this patient, have supervised the medical residents activities, and agree with the H&P unless as otherwise noted. Assessment and Plan: Cobb catheter complication- Taken to the OR emergently by urology Ceftriaxone 1 g IV daily Follow urine culture and sensitivity Cobb catheter and irrigation per urology Anemia- Stable in the 11 range Follow serially Remaining orders and notations as noted Resident Activity Tracking Resident Involvement: Resident Care Provided Care Provided: Adult Hospital Medicine
[2022-05-23] MEDS ORDERED: cefTRIAXone SODIUM 1,000 MG in DEXTROSE 5% 50 ML IV SCH (04:00)
[2022-05-23] MEDS ORDERED: PNEUMOCOCCAL Polysaccharide Vaccine 25mcg/0.5mL vial/Syr IM ONE (05:45)
[2022-05-23] MEDS ORDERED: Flu Vaccine-High Dose (Fluzone-HD) PF 65+ 0.7mL SYR IM ONE (05:45)
[2022-05-23] MEDS ORDERED: POTASSIUM CHLORIDE CRTAB 20 MEQ TABCR PO ONE (09:00)
[2022-05-23] MEDS ORDERED: ACETAMINOPHEN 325 MG TAB PO PRN (09:01)
--- NOTE | 2022-05-23 09:20 | Urology Progress Note ---
Date of Service May 23, 2022 Assessment & Plan (1) Acute urinary obstruction: (2) Hematuria: (3) Complication of Cobb catheter: Plan: 82yo M with a hx of untreated prostate cancer, neurogenic bladder, and chronic cobb who presented w/ penile bleeding and catheter malfunction. - Plan of care reviewed with Dr. Ram. - POD #1 s/p Cystoscopy with difficult catheterization, Clot Evacuation, and Dilation with Dr. Ram. - Operative findings included a false passage into the prostatic urethra and significant urethral stricture. - Cobb catheter intact, currently draining dark red urine without clot. - Pt doing ok this morning, no pain at present. - Afebrile, labs reviewed - White count 14.74, Hemoglobin 10.1, Creatinine 0.95. - Continues on empiric Rocephin. - Maintain Cobb catheter, ok to gently hand irrigate as needed for clots, retention, suprapubic pain. - He will need to maintain the Cobb catheter until outpatient follow-up with urology for catheter exchange. - Patient has previously refused management of prostate cancer and is likely de aling with obstruction and bleeding due to malignancy. - Recommend pt reconsider options as he will likely have further issues from prostate cancer and therefore would highly recommend seeing oncology to discuss options. - Urology will sign-off. Please contact us with any further questions, concerns, or changes in patient status. Admission and Anticipated Discharge Date Admission Date: May 22, 2022 Subjective Patient examined at bedside this AM. Awake, sitting in bedside chair on arrival. No acute distress. Cobb catheter intact, draining dark red urine. No clots noted in tubing. Reports intermittent bladder pain and leakage from cath. Denies fevers, chills, nausea, vomiting. Review of Systems Constitutional: as per Subjective / HPI Genitourinary: + as per Subjective / HPI Physical Exam Constitutional: no acute distress Respiratory: no respiratory distress and no labored breathing Gastrointestinal (Abdomen): Percussion/Palpation: abdomen soft; abdomen nontender Neurologic: awake Psychiatric: Orientation: alert, oriented x 3 and cooperative Genitourinary: Cobb catheter intact, draining dark red urine without clot. Results & Data ([facility]) Vital Signs (Past 12 Hours) Vital Signs Temp Pulse Pulse Resp BP BP Pulse Ox 05/23/22 08:22 36.7 C 63 16 100/59 L 94 05/23/22 01:20 37.1 C 92 H 18 97/58 L 98 05/23/22 00:20 37.3 C 97 H 16 96/57 L 97 05/22/22 23:21 36.5 C 109 H 16 101/61 97 05/22/22 22:50 37.1 C 114 H 18 142/79 H 97 05/22/22 22:20 37.1 C 116 H 20 181/87 H 95 05/22/22 21:50 111 H 22 171/84 H 97 05/22/22 21:20 36.6 C 94 H 24 150/74 H 98 PG Care Time/CCT Total # of Minutes Spent Total Time Spent with Patient: Total time spent is greater than 50% in coordination of care (as documented) at patient's floor/unit and/or counseling patient: Coding Level of Care Code 36453 Subseq Hosp Care Lvl 2 Diagnoses Acute urinary obstruction N13.9 Hematuria R31.9 Complication of Cobb catheter T83.9XXA Encounter type: initial encounter (1) Complication of Cobb catheter Encounter type: initial encounter Qualified Code(s): T83.9XXA - Unspecified complication of genitourinary prosthetic device, implant and graft, initial encounter
[2022-05-23 11:09] LABS: Anion Gap 7 (3-11); BUN Creatinine Ratio 23.2 (10-20); Blood Urea Nitrogen 22 mg/dl (6-23); Calcium 8.6 mg/dl (8.5-10.1); Carbon Dioxide 27 mmol/L (21-32); Chloride 102 mmol/L (98-107); Est GFR (African American) 87.3 ml/min; Est GFR (Non-African American) 75.3 ml/min; Glucose 206 mg/dl (70-99(Fasting)); Potassium 3.6 mmol/L (3.5-5.1); Sodium 136 mmol/L (136-145)
[2022-05-23 11:10] LABS: Hematocrit (blood only) 30.1 % (40.1-51.0); Hemoglobin 10.1 g/dl (14.0-18.0); Mean Corpuscular Hemoglobin 30.6 pg (25.0-34.0); Mean Corpuscular Hgb Conc 33.6 g/dL (32.0-36.0); Mean Corpuscular Volume 91.2 fL (80.0-100.0); Mean Platelet Volume 10.7 fL (9.4-12.4); Platelet Count 170 K/uL (130-400); RDW Coefficient of Variation 13.4 % (11.5-14.5); RDW Standard Deviation 44.3 fL (36.4-46.3); White Blood Count 14.74 K/ul (4.8-10.8)
[2022-05-23 11:58] LABS: Basophils # (auto) 0.02 K/uL (0-0.2); Basophils % (auto) 0.1 %; Immature Granulocytes # (auto) 0.15 K/uL (0.00-0.02); Lymphocytes # (auto) 0.38 K/uL (1.2-3.4); Lymphocytes % (auto) 2.6 %; Monocytes % (auto) 2.7 %; Neutrophils # (auto) 13.79 K/uL (1.4-6.5); Neutrophils % (auto) 93.6 %
--- NOTE | 2022-05-23 16:37 | Discharge Summary ---
Date of Service May 23, 2022 Admission HPI Per Admitting Provider 82 year old male w/ PMHx of active prostate cancer, neurogenic bladder, and chronic cobb who presents w/ penile bleeding and catheter malfunction. He has monthly cobb exhanges and had a recent exchange earlier in the day. He has progressively had increasing issues during the cobb exchanges. He has had hx of bladder rupture. He presented this evening to the ED for lower abdominal/groin discomfort and hematuria vs penile bleeding. Reinsertions were attempted in the ED but unsuccessful. Urology took the patient urgently for cystoscopy. There was a false passage into the prostatic urethra. Significant urethral stricture dilated and bypassed. The cystoscopy also revealed numerous bleeding irregular masses at the prostate and bladder thought to be from the prostate cancer. Patient was seen after the cystoscopy. He has some right lower abd/groin discomfort and feels sleepy after anesthesia but otherwise denies other complaints. Labs: cbc: Hb 11.7 stable. Na 135. K 3.6. Cr 0.83. ED course: Unsuccessful attempts at cobb reinsertion. Cobb had clots and was not draining. Urology consult. Cystoscopy as per above. Principal Diagnosis acute urinary obstruction, hematuria, s/p cystoscopy with cobb placement Discharge Exam General: in no acute distress. Cooperative. Answering questions appropriately. HEENT: NC/AT. EOMI. Pulm: CTAB. No respiratory distress. No accessory muscle use. Cardiac: RRR, no murmurs. Trace LE pitting edema. Abdominal: Nontender, nondistended, soft. : +cobb, making dark red urine without clots Discharge Data Allergies Allergy/AdvReac Type Severity Reaction Status Date / Time No Known Allergies Allergy Mild Verified 05/22/22 18:10 Consultations 05/22/22 20:52 ED Decision to Admit Stat 05/22/22 22:04 Consult Urology Routine Procedures Performed Operation Date: 05/22/22 19:30 Actual Procedures p Cystoscopy, Clot Evacuation, urethral Dilation, catheter placement(Not Applicable) - Mike Ram, Ordered Studies Laboratory Results WBC 14.74 K/ul (4.8-10.8) H 05/23/22 10:21 RBC 3.30 M/uL (4.63-6.08) L 05/23/22 10:21 Hgb 10.1 g/dl (14.0-18.0) L 05/23/22 10:21 Hct 30.1 % (40.1-51.0) L 05/23/22 10:21 MCV 91.2 fL (80.0-100.0) 05/23/22 10:21 MCH 30.6 pg (25.0-34.0) 05/23/22 10:21 MCHC 33.6 g/dL (32.0-36.0) 05/23/22 10:21 RDW Std Deviation 44.3 fL (36.4-46.3) 05/23/22 10:21 RDW Coeff of Shila 13.4 % (11.5-14.5) 05/23/22 10:21 Plt Count 170 K/uL (130-400) 05/23/22 10:21 MPV 10.7 fL (9.4-12.4) 05/23/22 10:21 Immature Gran % (Auto) 1.0 % 05/23/22 10:21 Neut % (Auto) 93.6 % 05/23/22 10:21 Lymph % (Auto) 2.6 % 05/23/22 10:21 [place] % (Auto) 2.7 % 05/23/22 10:21 Eos % (Auto) 0.0 % 05/23/22 10:21 Baso % (Auto) 0.1 % 05/23/22 10:21 Neut # (Auto) 13.79 K/uL (1.4-6.5) H 05/23/22 10:21 Lymph # (Auto) 0.38 K/uL (1.2-3.4) L 05/23/22 10:21 [place] # (Auto) 0.40 K/uL (0.24-0.82) 05/23/22 10:21 Eos # (Auto) 0.00 K/uL (0-0.50) 05/23/22 10:21 Baso # (Auto) 0.02 K/uL (0-0.2) 05/23/22 10:21 Immature Gran # (Auto) 0.15 K/uL (0.00-0.02) H 05/23/22 10:21 Sodium 136 mmol/L (136-145) 05/23/22 10:21 Potassium 3.6 mmol/L (3.5-5.1) 05/23/22 10:21 Chloride 102 mmol/L (98-107) 05/23/22 10:21 Carbon Dioxide 27 mmol/L (21-32) 05/23/22 10:21 Anion Gap 7 (3-11) 05/23/22 10:21 BUN 22 mg/dl (6-23) 05/23/22 10:21 Creatinine 0.95 mg/dl (0.6-1.4) 05/23/22 10:21 Est Cr Clr Drug Dosing Not Reportable 05/23/22 10:21 Est GFR ( Amer) 87.3 ml/min 05/23/22 10:21 Est GFR (Non-Af Amer) 75.3 ml/min 05/23/22 10:21 BUN/Creatinine Ratio 23.2 (10-20) H 05/23/22 10:21 Glucose 206 mg/dl (70-99(Fasting)) H 05/23/22 10:21 Calcium 8.6 mg/dl (8.5-10.1) 05/23/22 10:21 Hospital Course (1) Acute urinary obstruction: 82 year old male w/ PMHx of untreated active prostate cancer, neurogenic bladder, and chronic cobb who presents w/ penile bleeding and catheter malfunction in context of likely cancerous bleeding masses in his prostate and bladder. #Acute urinary obstruction #Hematuria #h/o prostate cancer #h/o chronic UTI #Anemia -presented with hematuria and abd/pain; likely from cobb exchange earlier that day which he gets monthly -symptoms likely stem from h/o prostate cancer and obstruction which patient has chosen to not intervene with tx in the past -unsuccessful cobb reinsertions in ED prompted urgent cystoscopy -s/p cystoscopy intervention per urology with cobb insertion (05/23): operative findings include a false passage into prostatic urethra and significant urethral stricture -hgb 10, stable -cobb intact with good output, draining red urine without clots -h/o chronic UTI; tx for UTI prophylactically, ceftriaxone x1 in hospital --> rx for cefdinir 300mg bid x4 days outpatient -continue cobb. irrigation prn, tylenol/oxycodone for pain relief -urology signed off and will f/u in outpatient setting for cobb exchange (2) Hematuria: (3) Cobb catheter problem: (4) Prostate cancer: (5) Anemia: Total Time Total Time Spent Total Time Spent (In Minutes): <30 Discharge Plan Discharge Items Patient Disposition: Home - Self-Care Reason For Visit: CATHETER PROBLEM Discharge Diagnosis: acute urinary obstruction, hematuria, s/p cystoscopy with cobb placement Activity: Per Instructions section Non-emergency contact: Primary Care Provider and Urologist Call non-emergency contact if: you have any medication questions and your symptoms worsen Follow-up/Referrals: Ankur Aden MD [Primary Care Provider] - 05/28/22 1:00 pm Mike Ram, DO [Physician] - (s/p cystoscopy with cobb placement) Diet: Regular Addtl Attending Provider Instructions: You were admitted to the hospital for penile bleeding, groin pain, and catheter malfunction. Multiple attempts every insertions of the Cobb catheter, urology decided for urgent cystoscopy insertion of Cobb catheter which was successful. Operative findings included a false passage into the prostatic urethra and significant urethral stricture. Upon discharge his Cobb catheter was intact and draining appropriately. Urine could remain red for some time secondary to the procedure or history of prostate cancer but remains without clot. Because of your history of chronic urinary tract infections, we started you on antibiotics in the hospital for prevention of such infection. He should continue taking an antibiotic as prescribed for coverage, antibiotic will be sent to your pharmacy: -Cefdinir 300mg two times a day for 4 days (start on 05/24/2022) The urology department will contact you after discharge to schedule an appointment in the outpatient setting for Cobb catheter exchange. It is highly recommended you be seen by an oncologist to discuss options for your prostate cancer which could be leading to urinary obstruction and bleeding. This can be further discussed with your urologist at your outpatient follow- up. Pending Studies at Discharge: No Stand-Alone Forms: My videoNEXT, Smoking Cessation Medications and DC Order Prescriptions: New cefdinir 300 mg capsule 300 mg PO BID Qty: 8 RF: 0 Continued oxycodone-acetaminophen [Percocet] 5-325 mg tablet 1 tab PO Q6H PRN (Reason: pain) Qty: 30 RF: 0 water for irrigation, sterile Solution See Rx Instructions irrigation DAILY PRN (Reason: catheter dysfunction) Qty: 500 RF: 5 acetaminophen [Tylenol Extra Strength] 500 mg Tablet 1,000 mg PO DIRECTED PRN (Reason: Pain) RF: 0 Discharge Orders: Discharge Order (Routine); Ordered 05/23/22 Ordered By: Manas Krueger Admission Data Admit Date/Time: 05/22/22 21:50 Attending Provider: Phong Kulkarni Admit Provider: Lyle Gallo Primary Care Provider: Ankur Aden Other Providers: Nader Betts ; Mike Ram Other Interventions: Discharge Summary Assessment (RN) Last Done: 05/23/22 17:42 Supervising Physician Co-Signing Physician Notes I personally examined the patient and verified all [place] points of history and exam, discussed case, and agree with decision making with Dr Krueger Feeling okay. Has bladder pain but notes it is more or less his chronic what he is used to dealing with. No other new complaints. Has not apparently clotted his Cobb at all. Very much wants to go home. Vitals noted, in general he is awake and alert pleasant no distress. HEENT normocephalic atraumatic mucous membranes moist. Breathing unlabored no accessory muscle use good effort. Skin shows no rashes no pallor or icterus. with dark red blood in the Cobb bag, no clots. Hematuriadifficult catheter placement due to urinary tract anatomy and malignancyplaced by urology, no clottingdoes appear to be stable for home in this regardapparently does not want anything to do with rehab/etc.and has family support. Should have Cobb changes at urology. Otherwise as above Resident Activity Tracking Resident Involvement: Resident Care Provided Care Provided: Adult Hospital Medicine
--- NOTE | 2022-05-23 19:06 | Billing Data ---
Date of Service May 23, 2022 Coding Level of Care Code D/C DAY MANAGEMENT <30 MINS
--- NOTE | 2022-05-23 20:12 | Billing Data ---
Date of Service May 23, 2022 Coding Level of Care Code 12566 Initial Inpt Care Lvl 2
== END 2022-05-23 18:42 | disposition home or self-care (01) ==
LOC: ED 14:20 → OR 19:29 → INTOOBSV 21:50 → SUATTDRO 21:50 → 3W 21:50

== ENCOUNTER 2022-05-28 10:20 | Inpatient (IN) ==
--- NOTE | 2022-05-28 11:07 | Emergency Department Note ---
Impression & Plan KIM (acute kidney injury), Acute urinary retention ED Provider Note NAME: YANELI FAROOQ AGE: 82 SEX: M : 1940 ARRIVES VIA: Walk-In INFORMANT: Patient ED PROVIDER(S): Phong Womack DO CHIEF COMPLAINT: Trouble urinating HPI: Patient is an 82-year-old male who presents ER for lower pelvic pain and he feels as though he has to urinate. He has not been having much output through the Galloway catheter for the past 2 days. Has been leaking around the catheter. He denies any headache or change in vision. No chest pain or shortness of breath. No nausea, vomiting, or diarrhea. No dysuria, urgency, or frequency. No other exacerbating or remitting factors. ROS: See above HPI for pertinent positives & negatives. A total of 10 systems reviewed and were otherwise negative. PAST MEDICAL HISTORY:See Below PAST SURGICAL HISTORY:See Below FAMILY HISTORY:See Below SOCIAL HISTORY:See Below HOME MEDICATIONS:See Below ALLERGIES:See Below VITALS:See Below PHYSICAL EXAMINATION: GENERAL: Sitting up in bed, alert, conically ill-appearing, cachectic, malnourished EYE EXAM: normal conjunctiva. OROPHARYNX: no exudate, no erythema, lips, buccal mucosa, and tongue normal and mucous membranes are moist NECK: supple, no nuchal rigidity, no adenopathy, non-tender LUNGS: Clear to auscultation. Normal chest wall mechanics HEART: no murmurs, S1 normal and S2 normal ABDOMEN: abdomen soft, non-tender, normo-active bowel sounds, no masses, no rebound or guarding. : Galloway in place with a clear/empty bag UPPER EXTREMITIES: upper extremities are grossly normal. LOWER EXTREMITIES: No pitting edema. NEURO EXAM: Normal sensorium, cranial nerves II-XII grossly intact, normal speech, no gross weakness of arms, no gross weakness of legs. MEDICAL DECISION MAKING: Patient is an 82-year-old male who presents the ER with above-stated complaint. IV was established blood work was obtained. Bladder scan showed greater than 600 mLs and Galloway was flushed and had over 600 out. He was not removed as it was placed in the OR per report. Labs showed no significant leukocytosis but mild anemia 9.6. BMP with a hyponatremia 130 and KIM 4.5 up from a baseline of 1. UA does suggest a UTI but will defer to the hospitalist for treatment as mai madrid was admitted when this resulted. COVID was negative. Patient was updated bedside admitted for further work-up. Triage Nursing notes reviewed. Limited review of prior medical records performed Vital Signs: reviewed and remarkable for no significant abnormalities Differential diagnosis: Differential diagnoses includes but is not limited to gastritis, peptic ulcer disease, GERD, gallbladder disease, pancreatitis, small bowel obstruction, acute coronary syndrome, pericarditis, ischemic bowel, irritable bowel disease, irritable bowel syndrome, appendicitis, diverticulitis, malignancy, hernia, urinary tract infection, torsion, perforation, trauma, infectious. ER treatment provided: See below Diagnostics interpreted by me: ECG: none Cardiac Monitoring: An order was placed for continuous cardiac monitoring. The monitor shows a rate of 80 with sinus rhythm. Laboratory studies: As stated above and show below. Imaging studies: See below Consultation(s): Discussed with Rashid Montoya for further evaluation for the KIM Procedures: none Critical Care: None Past Med/Surg History Medical History Acute kidney injury BPH (benign prostatic hyperplasia) GERD (gastroesophageal reflux disease) Hematuria Hypertension Prostate cancer Ruptured bladder Urinary incontinence UTI (urinary tract infection) Surgical History H/O inguinal hernia repair History of lumbar laminectomy Hx of appendectomy Family History Father Stroke Heart disease Grandfather (Paternal) Prostate cancer Denies family history of Ovarian cancer Diabetes Myocardial infarction Breast cancer Colorectal cancer Social History Smoking Status: Never smoker Second Hand Exposure: No; Hx Alcohol Use: No Hx Substance Use: No Preferred Language: Indonesian Communication Ability: Effective Visual Impairment: No Limitations Hearing Ability: Hard of Hearing 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 Beliefs That Will Affect Care: None marital status: Single Current Living Situation: Significant Other Current Living Situation Comment: home with significant other, dimas current occupational status: retired current occupation: retired from career with [employer] How many Children do You have: 1 Other Information That Helps Us Care for You: No Feels Safe at Home: Yes Safety Concerns: Feels Safe At This Time Childhood Exposure to Second-Hand Smoke: Yes Dental Care, Regularly: No Physical Activity Frequency: Daily Seatbelt Use: always Sunscreen Use: No Assistive Devices: Glasses and Walker Allergies Allergies Allergy/AdvReac Type Severity Reaction Status Date / Time No Known Allergies Allergy Mild Verified 05/22/22 18:10 Home Meds Home Medications Medication Instructions Recorded Confirmed acetaminophen 500 mg tablet 1,000 mg PO DIRECTED PRN 04/01/22 05/24/22 (Tylenol Extra Strength) Previous Rx's Medication Instructions Recorded oxycodone-acetaminophen 5 mg-325 1 tab PO Q6H PRN #30 tab 05/04/22 mg tablet (Percocet) water for irrigation, sterile See Rx Instructions IRRIGATION 05/10/22 DAILY PRN #500 ml cefdinir 300 mg capsule 300 mg PO BID #8 cap 05/23/22 Results & Data (ED) Vital Signs Vital Signs - 24 hr 05/28/22 10:20 05/28/22 10:36 05/28/22 10:51 Temperature 36.7 C Temperature Source Skin Pulse Rate 77 82 Pulse Rate [Radial] 72 86 Pulse Rhythm Regular Pulse Strength Normal Respiratory Rate 18 20 20 Respiratory Effort / Characteristics Non-Labored Non-Labored Spontaneous Non-Labored Respiratory Depth Normal Normal Normal Respiratory Pattern Regular Regular Regular Blood Pressure 110/69 Blood Pressure [Right Arm] 110/68 126/82 Blood Pressure Mean 82 Blood Pressure Mean [Right Arm] 82 96 Blood Pressure Position [Right Arm] Lying Pulse Oximetry 99 97 98 Oxygen Delivery Method Room Air Room Air Room Air Sepsis Recent Fever Within 48 Hours No Sepsis New/Unexplained Change in Mental Status N/A Sepsis Action Taken by Nursing No Action Required 05/28/22 11:30 05/28/22 12:30 Temperature Temperature Source Pulse Rate Pulse Rate [Radial] 82 84 Pulse Rhythm Pulse Strength Respiratory Rate 20 20 Respiratory Effort / Characteristics Non-Labored Non-Labored Respiratory Depth Normal Normal Respiratory Pattern Blood Pressure Blood Pressure [Right Arm] 122/64 127/63 Blood Pressure Mean Blood Pressure Mean [Right Arm] 83 84 Blood Pressure Position [Right Arm] Pulse Oximetry 98 99 Oxygen Delivery Method Room Air Room Air Sepsis Recent Fever Within 48 Hours Sepsis New/Unexplained Change in Mental Status Sepsis Action Taken by Nursing Laboratory Data Result diagrams: 05/28/22 11:00 05/28/22 11:00 Lab Results 07/10/0905/28/22 05/28/22 Range/Units 11:00 11:00 11:17 WBC 10.59 (4.8-10.8) K/ul RBC 3.22 L (4.63-6.08) M/uL Hgb 9.6 L (14.0-18.0) g/dl Hct 28.8 L (40.1-51.0) % MCV 89.4 (80.0-100.0) fL MCH 29.8 (25.0-34.0) pg MCHC 33.3 (32.0-36.0) g/dL RDW Std Deviation 45.0 (36.4-46.3) fL RDW Coeff of Shila 13.6 (11.5-14.5) % Plt Count 242 (130-400) K/uL MPV 10.3 (9.4-12.4) fL Immature Gran % (Auto) 0.5 % Neut % (Auto) 87.6 % Lymph % (Auto) 7.6 % [place] % (Auto) 4.1 % Eos % (Auto) 0.1 % Baso % (Auto) 0.1 % Neut # (Auto) 9.29 H (1.4-6.5) K/uL Lymph # (Auto) 0.80 L (1.2-3.4) K/uL [place] # (Auto) 0.43 (0.24-0.82) K/uL Eos # (Auto) 0.01 (0-0.50) K/uL Baso # (Auto) 0.01 (0-0.2) K/uL Immature Gran # (Auto) 0.05 H (0.00-0.02) K/uL Sodium 130 L (136-145) mmol/L Potassium 4.1 (3.5-5.1) mmol/L Chloride 97 L (98-107) mmol/L Carbon Dioxide 25 (21-32) mmol/L Anion Gap 8 (3-11) BUN 57 H (6-23) mg/dl Creatinine 4.54 H* (0.6-1.4) mg/dl Est Cr Clr Drug Dosing 9.9 ml/min Est GFR ( Amer) 13.2 ml/min Est GFR (Non-Af Amer) 11.4 ml/min BUN/Creatinine Ratio 12.6 (10-20) Glucose 99 (70-99(Fasting)) mg/dl Calcium 8.8 (8.5-10.1) mg/dl B-Natriuretic Peptide (0-100) pg/ml Urine Color [place] Urine Appearance Cloudy A (Clear) Urine pH 5.5 (4.5-7.5) Ur Specific [place] 1.016 (1.000-1.030) Urine Protein 3+ H (Negative) Urine Glucose (UA) Negative (Negative) Urine Ketones Negative (Negative) Urine Blood 3+ H (Negative) Urine Nitrite Positive A (Negative) Urine Bilirubin Negative (Negative) Urine Urobilinogen Negative (Negative) Ur Leukocyte Esterase 2+ H (Negative) Urine WBC (Auto) >30 H (0-5) /hpf Urine RBC (Auto) >30 H (0-4) /hpf U Hyaline Cast (Auto) 0 (0-5) /lpf U Epithel Cells (Auto) 10-20 H (0-5) /lpf Urine Bacteria (Auto) 1+ H (Negative) Urine Yeast Not Reportable SARS-CoV-2, RNA, NAAT (NEGATIVE) 05/28/22 05/28/22 Range/Units 12:13 12:15 WBC (4.8-10.8) K/ul RBC (4.63-6.08) M/uL Hgb (14.0-18.0) g/dl Hct (40.1-51.0) % MCV (80.0-100.0) fL MCH (25.0-34.0) pg MCHC (32.0-36.0) g/dL RDW Std Deviation (36.4-46.3) fL RDW Coeff of Shila (11.5-14.5) % Plt Count (130-400) K/uL MPV (9.4-12.4) fL Immature Gran % (Auto) % Neut % (Auto) % Lymph % (Auto) % [place] % (Auto) % Eos % (Auto) % Baso % (Auto) % Neut # (Auto) (1.4-6.5) K/uL Lymph # (Auto) (1.2-3.4) K/uL [place] # (Auto) (0.24-0.82) K/uL Eos # (Auto) (0-0.50) K/uL Baso # (Auto) (0-0.2) K/uL Immature Gran # (Auto) (0.00-0.02) K/uL Sodium (136-145) mmol/L Potassium (3.5-5.1) mmol/L Chloride (98-107) mmol/L Carbon Dioxide (21-32) mmol/L Anion Gap (3-11) BUN (6-23) mg/dl Creatinine (0.6-1.4) mg/dl Est Cr Clr Drug Dosing ml/min Est GFR ( Amer) ml/min Est GFR (Non-Af Amer) ml/min BUN/Creatinine Ratio (10-20) Glucose (70-99(Fasting)) mg/dl Calcium (8.5-10.1) mg/dl B-Natriuretic Peptide 57 (0-100) pg/ml Urine Color Urine Appearance (Clear) Urine pH (4.5-7.5) Ur Specific [place] (1.000-1.030) Urine Protein (Negative) Urine Glucose (UA) (Negative) Urine Ketones (Negative) Urine Blood (Negative) Urine Nitrite (Negative) Urine Bilirubin (Negative) Urine Urobilinogen (Negative) Ur Leukocyte Esterase (Negative) Urine WBC (Auto) (0-5) /hpf Urine RBC (Auto) (0-4) /hpf U Hyaline Cast (Auto) (0-5) /lpf U Epithel Cells (Auto) (0-5) /lpf Urine Bacteria (Auto) (Negative) Urine Yeast SARS-CoV-2, RNA, NAAT NEGATIVE (NEGATIVE) Administered Medications Sodium Chloride (Nss 1000ml) 1,000 mls @ 80 mls/hr IV .[id number] [facility] Stop: 06/27/22 14:21 Last Admin: 05/28/22 15:00 Dose: 80 mls/hr Documented by: [id number] Discontinued Medications Acetaminophen (Acetaminophen 325 Mg Tab) 650 mg PO NOW STA Stop: 05/28/22 13:19 Last Admin: 05/28/22 13:56 Dose: 650 mg Documented by: [id number] Docusate Sodium (Docusate Sodium 100 Mg Cap) 100 mg PO NOW ONE Stop: 05/28/22 13:16 Last Admin: 05/28/22 13:56 Dose: 100 mg Documented by: [id number] Sodium Chloride (Nss 1000ml) 1,000 mls @ 999 mls/hr IV .[id number] ONE Stop: 05/28/22 12:59 Last Infusion: 05/28/22 14:02 Dose: 999 mls/hr Documented by: [id number] Admin: 05/28/22 12:25 Dose: 999 mls/hr Documented by: [id number] Lactated Ringer's (Lr) 1,000 mls @ 100 mls/hr IV .Q10H [facility]ANNON Stop: 06/27/22 14:21 Last Admin: 05/28/22 14:52 Dose: Not Given Documented by: [id number] Pantoprazole Sodium (Pantoprazole 40 Mg Tab) 40 mg PO NOW STA Stop: 05/28/22 13:06 Last Admin: 05/28/22 13:57 Dose: 40 mg Documented by: [id number] Discharge Plan Visit Data Chief Complaint: Catheter Replacement Stated Complaint: CATH CLOGGED,NO OUTPUT ED Provider: Phong Womack Discharge Problem: KIM (acute kidney injury), Acute urinary retention Patient Disposition: Admitted As Inpatient Discharge Instructions Interventions: ED Discharge Assessment Last Done: 05/28/22 14:03
[2022-05-28 11:21] LABS: Basophils # (auto) 0.01 K/uL (0-0.2); Basophils % (auto) 0.1 %; Eosinophils # (auto) 0.01 K/uL (0-0.50); Eosinophils % (auto) 0.1 %; Hematocrit (blood only) 28.8 % (40.1-51.0); Hemoglobin 9.6 g/dl (14.0-18.0); Immature Granulocytes # (auto) 0.05 K/uL (0.00-0.02); Immature Granulocytes % (auto) 0.5 %; Lymphocytes % (auto) 7.6 %; Mean Corpuscular Hemoglobin 29.8 pg (25.0-34.0); Mean Corpuscular Hgb Conc 33.3 g/dL (32.0-36.0); Mean Corpuscular Volume 89.4 fL (80.0-100.0); Mean Platelet Volume 10.3 fL (9.4-12.4); Monocytes # (auto) 0.43 K/uL (0.24-0.82); Monocytes % (auto) 4.1 %; Neutrophils # (auto) 9.29 K/uL (1.4-6.5); Neutrophils % (auto) 87.6 %; Platelet Count 242 K/uL (130-400); RDW Coefficient of Variation 13.6 % (11.5-14.5); Red Blood Count 3.22 M/uL (4.63-6.08); White Blood Count 10.59 K/ul (4.8-10.8)
[2022-05-28 11:54] LABS: BUN Creatinine Ratio 12.6 (10-20); Calcium 8.8 mg/dl (8.5-10.1); Creatinine Clr Calc Pharmacy 9.9 ml/min; Est GFR (African American) 13.2 ml/min; Est GFR (Non-African American) 11.4 ml/min; Potassium 4.1 mmol/L (3.5-5.1)
[2022-05-28] MEDS ORDERED: SODIUM CHLORIDE 0.9% 1000ML 1,000 ML IV ONE (11:59)
[2022-05-28 12:13] LABS: Appearance Urine Cloudy (Clear); Bilirubin Urine Negative (Negative); Blood Urine 3+ (Negative); Color Urine Orange; Glucose Urine UA Negative (Negative); Ketones Urine Negative (Negative); Leukocyte Esterase Urine 2+ (Negative); Nitrite Urine Positive (Negative); Protein Urine 3+ (Negative); Specific Gravity Urine 1.016 (1.000-1.030); Urobilinogen Urine Negative (Negative); WBC Urine Automated >30 /hpf (0-5); pH Urine 5.5 (4.5-7.5)
--- NOTE | 2022-05-28 12:18 | History & Physical Report ---
Date of Service May 28, 2022 Assessment & Plan (1) KIM (acute kidney injury): Plan: Cr 4.54 from 0.95 Suspected due to obstructive uropathy Will hydrate slowly with NSS @80ml/hr due to hyponatremia and hypochloremia (2) Complication of Cobb catheter: Plan: Flushed in the emergency room with relief of pressure (3) Prostate cancer: Plan: Not on active treatment Plan: VTE prophylaxis - avoid chemical prophyalxis due to high risk of hematuria causing recurrent cobb catheter obstruction Diet - regular Disposition - admit to med/tele Admission and Anticipated Discharge Date Admission Date: May 28, 2022 History of Present Illness Chief Complaint: Acute kidney injury Primary Care Provider: Ankur Aden MD Matt Poe is an 82 year old male with prostate cancer without active treatment with neurogenic bladder and history of bladder rupture who presents to the ER with difficulty passing urine through his chronic Cobb catheter. He reports taking off the bag last night as it was bothering him. His reports leaking around the side of the catheter. He reports increasing abdominal pain over the last two days with severity 8-9/10 at worst - relieved when catheter flushed in the emergency room and drainage obtained. He denies any fever, chills or flank pain. In the ER he was noted to have acute kidney injury with creatinine 4.54 from 0.95 just 5 days previously, suspected to be obstructive uropathy as the Cobb catheter was block with sediment which was relieved in the emergency room. He was referred to medicine for admission and ongoing management of acute kidney injury. Allergies Allergy/AdvReac Type Severity Reaction Status Date / Time No Known Allergies Allergy Mild Verified 05/22/22 18:10 Home Medications Medication Instructions Recorded Confirmed Type acetaminophen 500 mg tablet 1,000 mg PO DIRECTED PRN 04/01/22 05/24/22 History (Tylenol Extra Strength) oxycodone-acetaminophen 5 mg-325 1 tab PO Q6H PRN #30 tab 05/04/22 05/24/22 Rx mg tablet (Percocet) water for irrigation, sterile See Rx Instructions IRRIGATION 05/10/22 05/24/22 Rx DAILY PRN #500 ml cefdinir 300 mg capsule 300 mg PO BID #8 cap 05/23/22 05/24/22 Rx Past Med/Surg History Medical History Acute kidney injury BPH (benign prostatic hyperplasia) GERD (gastroesophageal reflux disease) Hematuria Hypertension Prostate cancer Ruptured bladder Urinary incontinence UTI (urinary tract infection) Surgical History H/O inguinal hernia repair History of lumbar laminectomy Hx of appendectomy Family History Father Stroke Heart disease Grandfather (Paternal) Prostate cancer Denies family history of Ovarian cancer Diabetes Myocardial infarction Breast cancer Colorectal cancer Social History Smoking Status: Never smoker Second Hand Exposure: No; Hx Alcohol Use: No Hx Substance Use: No Preferred Language: [place] Communication Ability: Effective Visual Impairment: No Limitations Hearing Ability: Hard of Hearing 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: No Beliefs That Will Affect Care: None marital status: Single Current Living Situation: Significant Other Current Living Situation Comment: home with significant other, dimas current occupational status: retired current occupation: retired from career with [employer] How many Children do You have: 1 Other Information That Helps Us Care for You: No Feels Safe at Home: Yes Safety Concerns: Feels Safe At This Time Childhood Exposure to Second-Hand Smoke: Yes Dental Care, Regularly: No Physical Activity Frequency: Daily Seatbelt Use: always Sunscreen Use: No Assistive Devices: Glasses and Walker Review of Systems Review of Systems: All systems reviewed & are unremarkable except as noted in HPI & below Physical Exam Constitutional: WD/WN, vitals as above Respiratory: normal respiratory effort, lungs clear to auscultation Cardiovascular: RRR, no murmur, no edema Gastrointestinal (Abdomen): normal bowel sounds, soft, nontender, no hepatosplenomegaly Musculoskeletal: no cyanosis or clubbing, extremities motor strength 5/5 Skin: no rashes, warm and dry Genitourinary: no CVA tenderness Results & Data Results & Data ([facility]) Vital Signs (Past 12 Hours) Vital Signs Temp Pulse Pulse Resp BP BP Pulse Ox 05/28/22 10:36 36.7 C 82 20 110/69 97 05/28/22 10:20 77 72 18 110/68 99 Laboratory Results Abnormal lab results 05/28/22 05/28/22 05/28/22 Range/Units 11:00 11:00 11:17 RBC 3.22 L (4.63-6.08) M/uL Hgb 9.6 L (14.0-18.0) g/dl Hct 28.8 L (40.1-51.0) % Neut # (Auto) 9.29 H (1.4-6.5) K/uL Lymph # (Auto) 0.80 L (1.2-3.4) K/uL Immature Gran # (Auto) 0.05 H (0.00-0.02) K/uL Sodium 130 L (136-145) mmol/L Chloride 97 L (98-107) mmol/L BUN 57 H (6-23) mg/dl Creatinine 4.54 H* (0.6-1.4) mg/dl Urine Appearance Cloudy A (Clear) Urine Protein 3+ H (Negative) Urine Blood 3+ H (Negative) Urine Nitrite Positive A (Negative) Ur Leukocyte Esterase 2+ H (Negative) Urine WBC (Auto) >30 H (0-5) /hpf Urine RBC (Auto) >30 H (0-4) /hpf U Epithel Cells (Auto) 10-20 H (0-5) /lpf Urine Bacteria (Auto) 1+ H (Negative) Medications Administered ER Medications Given: NSS 1L bolus Code Status & VTE Plan Code Status Full VTE Prophylaxis Plan VTE Prophylaxis will be ordered: No Reason for no VTE drug order: Contraindicated Reason for no VTE mechanical prophylaxis: Treatment not indicated PG Care Time/CCT Total # of Minutes Spent Total Time Spent with Patient: Total time spent is greater than 50% in coordination of care (as documented) at patient's floor/unit and/or counseling patient: Coding Level of Care Code 95493 Initial Inpt Care Lvl 2 Diagnoses KIM (acute kidney injury) N17.9 Prostate cancer C61 Complication of Cobb catheter T83.9XXA Encounter type: initial encounter (1) Complication of Cobb catheter Encounter type: initial encounter Qualified Code(s): T83.9XXA - Unspecified complication of genitourinary prosthetic device, implant and graft, initial encounter
[2022-05-28 12:45] LABS: RBC Urine Automated >30 /hpf (0-4)
[2022-05-28 12:46] LABS: Bacteria Urine Automated 1+ (Negative); Cast Urine Automated 0 /lpf (0-5)
[2022-05-28] MEDS ORDERED: PANTOprazole 40 MG TAB PO STA (13:05)
[2022-05-28] MEDS ORDERED: DOCUSATE SODIUM 100 MG CAP PO ONE (13:15)
[2022-05-28] MEDS ORDERED: ACETAMINOPHEN 325 MG TAB PO STA (13:18)
[2022-05-28] MEDS ORDERED: POLYETHYLENE (MIRALAX) 17 GM PACK PO PRN (14:22)
[2022-05-28] MEDS ORDERED: ONDANSETRON INJ 2 MG/ML 2 ML VIAL IV PRN (14:22)
[2022-05-28] MEDS ORDERED: LACTATED RINGER'S 1,000 ML IV SCH (14:22)
[2022-05-28] MEDS ORDERED: ACETAMINOPHEN 325 MG TAB PO PRN (14:22)
[2022-05-28] MEDS: SODIUM CHLORIDE 0.9% 1000ML 1,000 ML IV SCH (15:00)
[2022-05-28] MEDS: DOCUSATE SODIUM 100 MG CAP PO SCH (20:22)
[2022-05-29] MEDS: SODIUM CHLORIDE 0.9% 1000ML 1,000 ML IV SCH ×2 (04:04→16:35)
[2022-05-29] MEDS: PANTOprazole 40 MG TAB PO SCH (08:03)
[2022-05-29] MEDS: DOCUSATE SODIUM 100 MG CAP PO SCH ×2 (08:03→21:20)
[2022-05-29 08:55] LABS: BUN Creatinine Ratio 21.2 (10-20); Calcium 8.1 mg/dl (8.5-10.1); Creatinine Clr Calc Pharmacy 25.4 ml/min; Est GFR (African American) 43.2 ml/min; Est GFR (Non-African American) 37.3 ml/min; Potassium 3.6 mmol/L (3.5-5.1)
--- NOTE | 2022-05-29 13:48 | Hospitalist Progress Note ---
Date of Service May 29, 2022 Assessment & Plan (1) KIM (acute kidney injury): Plan: Matt is a 82-year-old male with history of prostate cancer not going treatment and indwelling Cobb who presented with acute renal failure likely obstructive in the setting of leaking/dysfunctional Cobb. Cobb was found to be blocked with sediment, blockage was relieved in the ER and patient was transferred to follow his renal function. 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 Patient feels well Cobb is now draining clear urine. No pain. No fever, chills, sweats, shortness of breath, difficulty breathing. Is eating lunch at time of visit. Review of Systems Review of Systems: All systems reviewed & are unremarkable except as noted in Subjective Physical Exam Physical Exam: General: A&Ox3. NAD. Cooperative. HEENT: Atraumatic, normocephalic. Pulm: CTAB A&P. -wheezes, -rales, -rhonchi. Symmetrical chest rise. No increase in work of breathing. No respiratory distress. Cardiac: RRR, -mrg. Radial pulses intact and symmetrical. Abdominal: Nontender, nondistended, soft. BS present. : Cobb in place draining light yellow urine with slight sediment Results & Data Results & [facility] ([facility]) Vital Signs (Past 12 Hours) Vital Signs Temp Pulse Pulse Resp BP Pulse Ox 05/29/22 11:26 36.4 C L 97 H 16 155/70 H 98 05/29/22 07:33 36.7 C 78 16 139/68 95 05/29/22 07:00 69 05/29/22 04:00 36.4 C L 67 20 128/65 100 PG Care Time/CCT Total # of Minutes Spent Total Time Spent with Patient: Total time spent is greater than 50% in coordination of care (as documented) at patient's floor/unit and/or counseling patient: Coding Level of Care Code 42582 Subseq Hosp Care Lvl 2 Diagnoses KIM (acute kidney injury) N17.9 Complication of Cobb catheter T83.9XXA Encounter type: initial encounter Prostate cancer C61 (1) Complication of Cobb catheter Encounter type: initial encounter Qualified Code(s): T83.9XXA - Unspecified complication of genitourinary prosthetic device, implant and graft, initial encounter
[2022-05-30] MEDS: SODIUM CHLORIDE 0.9% 1000ML 1,000 ML IV SCH (05:47)
[2022-05-30 07:16] LABS: BUN Creatinine Ratio 22.5 (10-20); Est GFR (African American) 97.8 ml/min; Est GFR (Non-African American) 84.4 ml/min; Potassium 3.4 mmol/L (3.5-5.1)
[2022-05-30] MEDS ORDERED: POTASSIUM CHLORIDE CRTAB 20 MEQ TABCR PO STA (07:50)
--- NOTE | 2022-05-30 07:50 | Hospitalist Progress Note ---
Date of Service May 30, 2022 Assessment & Plan (1) KIM (acute kidney injury): Plan: Matt is a 82-year-old male with history of prostate cancer not going treatment and indwelling Cobb who presented with acute renal failure likely obstructive in the setting of leaking/dysfunctional Cobb. Cobb was found to be blocked with sediment, blockage was relieved in the ER and patient was transferred to follow his renal function. 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 with some sediment still present Downtrending to 1.9 today Repeat BMP in the morning, and Cobb output adequate anticipate D/C (2) Complication of Cobb catheter: Plan: As noted (3) Prostate cancer: Plan: Not on active treatment Plan VTE prophylaxis - avoid chemical prophyalxis due to high risk of hematuria causing recurrent cobb catheter obstruction Diet - regular Disposition - admit to med/tele Admission and Anticipated Discharge Date Admission Date: May 28, 2022 Results & Data Results & Data ([facility]) Vital Signs (Past 12 Hours) Vital Signs Temp Pulse Pulse Resp BP Pulse Ox O2 Del Method 05/30/22 07:01 58 L 05/30/22 04:00 97.7 F 74 19 151/72 H 96 Room Air 05/30/22 00:00 67 05/29/22 23:00 98.1 F 86 18 169/72 H 96 Room Air 05/29/22 20:00 97.7 F 71 18 147/70 H 97 Room Air PG Care Time/CCT Total # of Minutes Spent Total Time Spent with Patient: Total time spent is greater than 50% in coordination of care (as documented) at patient's floor/unit and/or counseling patient: Coding Diagnoses KIM (acute kidney injury) N17.9 Complication of Cobb catheter T83.9XXA Encounter type: initial encounter Prostate cancer C61 (1) Complication of Cobb catheter Encounter type: initial encounter Qualified Code(s): T83.9XXA - Unspecified complication of genitourinary prosthetic device, implant and graft, initial encounter
[2022-05-30] MEDS: DOCUSATE SODIUM 100 MG CAP PO SCH (10:03)
[2022-05-30] MEDS: PANTOprazole 40 MG TAB PO SCH (10:03)
--- NOTE | 2022-05-30 17:58 | Discharge Summary ---
Date of Service May 30, 2022 Admission HPI Per Admitting Provider Matt Poe is an 82 year old male with prostate cancer without active treatment with neurogenic bladder and history of bladder rupture who presents to the ER with difficulty passing urine through his chronic Cobb catheter. He reports taking off the bag last night as it was bothering him. His reports leaking around the side of the catheter. He reports increasing abdominal pain over the last two days with severity 8-9/10 at worst - relieved when catheter flushed in the emergency room and drainage obtained. He denies any fever, chills or flank pain. In the ER he was noted to have acute kidney injury with creatinine 4.54 from 0.95 just 5 days previously, suspected to be obstructive uropathy as the Cobb catheter was block with sediment which was relieved in the emergency room. He was referred to medicine for admission and ongoing management of acute kidney injury. Principal Diagnosis obstructive uropathy resolved Discharge Exam The patient appeared stable Vital signs as documented. Extremities are nonedematous and both pedal pulses are normal. Neurologic exam is alert and oriented, no focal loss of strength or sensation Skin is without bruises or rashes Psychologically is without concerns for anxiety or depression. Discharge Data Allergies Allergy/AdvReac Type Severity Reaction Status Date / Time No Known Allergies Allergy Mild Verified 05/22/22 18:10 Consultations 05/28/22 11:59 ED Decision to Admit Stat Hospital Course (1) KIM (acute kidney injury): Matt is a 82-year-old male with history of prostate cancer not going treatment and indwelling Cobb who presented with acute renal failure likely obstructive in the setting of leaking/dysfunctional Cobb. Cobb was found to be blocked with sediment, blockage was relieved in the ER and patient was transferred to follow his renal function. Acute renal failure, obstructive uropathy, resolved Creatinine acutely elevated from baseline 0.95-4.[address], now draining pulmonologist urine with some sediment still present Downtrending Cr follows up with Dr Mcdonough in urology division (2) Complication of Cobb catheter: As noted (3) Prostate cancer: Not on active treatment Total Time Total Time Spent Total Time Spent (In Minutes): It required greater than 30 minutes to prepare this patient for discharge Discharge Plan Discharge Items Patient Disposition: Home - Self-Care Reason For Visit: KIM Discharge Diagnosis: acute kideny distress due to blocked urinary catheter, improved Activity: Resume your previous activity Non-emergency contact: Primary Care Provider and Urologist Call non-emergency contact if: you have any medication questions Follow-up/Referrals: Ankur Aden MD [Primary Care Provider] - 06/05/22 2:00 pm Diet: Regular Addtl Attending Provider Instructions: you had some kidney distress from your Ocbb Catheter being blocked, since unblocked your kidney function improved back to normal. Please keep an eye on your urine output and if it seems to be decreasing contact your primary care to see in a nursing visit can flush it, if they are not able please report to the ER for the same Pending Studies at Discharge: No Stand-Alone Forms: My [facility] [employer], Smoking Cessation Medications and DC Order Prescriptions: Continued oxycodone-acetaminophen [Percocet] 5-325 mg tablet 1 tab PO Q6H PRN (Reason: pain) Qty: 30 0RF water for irrigation, sterile Solution See Rx Instructions irrigation DAILY PRN (Reason: catheter dysfunction) Qty: 500 5RF Rx Instructions: Irrigate cobb catheter PRN as directed. acetaminophen [Tylenol Extra Strength] 500 mg Tablet 1,000 mg PO DIRECTED PRN (Reason: Pain) Discontinued cefdinir 300 mg capsule 300 mg PO BID Qty: 8 0RF Rx Instructions: take for 4 days starting 05/24/2022 Discharge Orders: Discharge Order (Routine); Ordered 05/30/22 Ordered By: Baldo Bolden Admission Data Admit Date/Time: 05/28/22 12:45 Attending Provider: Baldo Bolden Admit Provider: Rashid Montoya Primary Care Provider: Ankur Aden Other Providers: Rashid Montoya Other Interventions: Discharge Summary Assessment (RN) Last Done: 05/30/22 11:07 Coding Level of Care Code D/C DAY MANAGEMENT >30 MINS Diagnoses KIM (acute kidney injury) N17.9 Complication of Cobb catheter T83.9XXA Encounter type: initial encounter Prostate cancer C61
--- NOTE | 2022-05-31 12:43 | Pharmacy Report ---
ED Pharmacist Culture FollowUP - Culture Follow Up Note Date of Service: May 31, 2022 Notes:: * Received final urine culture in ED today. 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 Dr. Bolden was aware prior to discharge. No further intervention necessary.
--- NOTE | 2022-05-31 12:49 | Communication Note ---
Date of Service: May 31, 2022 Urine culture resulted a Lottery Clerk species [id number], since cobb was obstructed with sediment and pt had kaya associated with it , phones one week supply of Lev aquin 500mg to [place] [facility] and left message on patients answering machine
== END 2022-05-30 14:19 | disposition home or self-care (01) | DRG 699 ==
LOC: ED 10:20 → 2N 12:45 → SUATTDRO 12:45 → 2N 14:03

== ENCOUNTER 2022-11-06 19:19 | Observation (INO) ==
--- NOTE | 2022-11-06 19:43 | Emergency Department Note ---
Impression & Plan Catheter-associated urinary tract infection, Complication, blocked Galloway catheter, Cough ED Provider Note Provider: Praneeth Sánchez MD DATE OF SERVICE: 11/06/2022 CHIEF COMPLAINT: Galloway catheter blocked HISTORY OF PRESENT ILLNESS: Patient is a 82-year-old gentleman history of prostate cancer and urinary retention with a chronic Galloway presenting here today reporting that his Galloway catheter stopped draining and is at increased lower abdominal pain and bladder distention. Galloway catheter was evidently changed in the urology office yesterday. Denies fever or other trauma. States he has intermittently had some blood in his urine in the past but not currently. Range until this evening. Denies nausea but states he did have a coughing and coughed up some phlegm and maybe vomited a bit of milk earlier. Denies again feeling nauseous now. No fevers reported or sick contacts. A bit of postnasal drip unclear chronicity. Denies any chest pain or significant headache. REVIEW OF SYSTEMS: A total of 6 review of systems was obtained and negative except as stated above in the HPI. PAST MEDICAL HISTORY: As noted above MEDICATIONS: Reviewed home medications SOCIAL HISTORY: Resides at home PHYSICAL EXAM: GENERAL: alert and oriented in no acute distress on stretcher Head: normocephalic and atraumatic EYES: No injection, discharge or icterus. NECK: Trachea midline. ENT: Mucous membranes pink and moist. LUNGS: Airway patent. No retractions or tachypnea. Clear lung sounds. HEART: Regular rate and rhythm. No chest wall tenderness ABDOMEN: Soft with some suprapubic fullness and tenderness. No upper abdominal tenderness. BACK: No bilateral flank tenderness. SKIN: Acyanotic, warm, dry, without rashes EXTREMITIES: Without swelling, tenderness or deformity NEUROLOGICAL: No focal deficits. No aphasia. No facial droop or slurred speech. Ambulatory. Differential includes Galloway catheter complication/blockage, UTI, diverticulitis, bowel obstruction, pneumonia, URI/viral infection, sepsis, among others were considered. IMPRESSION/MEDICAL DECISION MAKING: Galloway catheter appears to be obstructed. No abdominal discomfort but otherwise without severe pain. No flank pain. Doubt this represents kidney stone. Not having significant obstructive pathology at this time with intractable vomiting or nausea. Declined any offer of Tylenol here for pain. Will replace with a 20 Indonesian catheter. We will send a urine culture. Some pinkish tinge to the urine is noted and clot in the old catheter likely explains some of the dysfunction. Patient not having significant fever. Family however concerned that he could be having an infection. Catheter recently exchanged but intermittently having some clotting issues requiring several flushes here. Urine appearance is consistent with infection. Reviewed prior microbiology. Placed on Levaquin which he is tolerated before. Discussed with patient as well as family members at bedside they can try flushing at home if needed if brief obstruction occurs but there is continued symptoms and concern for retention/obstruction they may need to return in the future. They understood this but they felt comfortable taking him home at this time. Secondarily, the patient does endorse a bit of postnasal drip and cough and as such discussion with patient and family bedside a chest x-ray was obtained as well as a COVID and influenza test. Chest x-ray per radiology is reassuring. COVID and flu testing negative. Denies any significant chest pain. Afebrile and not hypoxic. Discussed with him continue to monitor symptoms. DIAGNOSIS: Galloway catheter complication with catheter associated UTI, cough DISPOSITION: Discharge. Patient was agreeable with this plan. Discussed return precautions and advised follow up. Past Med/Surg History Medical History Acute kidney injury BPH (benign prostatic hyperplasia) GERD (gastroesophageal reflux disease) Hematuria Hypertension Prostate cancer Ruptured bladder UTI (urinary tract infection) Surgical History H/O inguinal hernia repair History of lumbar laminectomy Hx of appendectomy Family History Father Stroke Heart disease Grandfather (Paternal) Prostate cancer Denies family history of Ovarian cancer Diabetes Myocardial infarction Breast cancer Colorectal cancer Social History Smoking Status: Never smoker Second Hand Exposure: No; Hx Alcohol Use: No Hx Substance Use: No Preferred Language: Tajik Communication Ability: Effective Visual Impairment: No Limitations Hearing Ability: Hard of Hearing 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 How many Children do You have: 1 Feels Safe at Home: Yes Childhood Exposure to Second-Hand Smoke: Yes Dental Care, Regularly: No Physical Activity Frequency: Daily Seatbelt Use: always Sunscreen Use: No Assistive Devices: Wheelchair Allergies Allergies Allergy/AdvReac Type Severity Reaction Status Date / Time No Known Allergies Allergy Mild Verified 11/06/22 20:10 Home Meds Home Medications Medication Instructions Recorded Confirmed acetaminophen 500 mg tablet 1,000 mg PO DIRECTED PRN Pain 04/01/22 11/06/22 (Tylenol Extra Strength) Previous Rx's Medication Instructions Recorded levofloxacin 500 mg tablet 500 mg PO DAILY 7 days #7 tabs 11/06/22 Results & Data (ED) Vital Signs Vital Signs - 24 hr 11/06/22 19:24 Temperature 36.3 C L Temperature Source Temporal Artery Scan Pulse Rate 100 H Respiratory Rate 18 Respiratory Effort / Characteristics Non-Labored Respiratory Depth Normal Blood Pressure 155/88 H Blood Pressure Mean 110 Pulse Oximetry 99 Oxygen Delivery Method Room Air Sepsis Recent Fever Within 48 Hours No Sepsis New/Unexplained Change in Mental Status No Sepsis Action Taken by Nursing No Action Required Laboratory Data Lab Results 11/06/22 Range/Units 19:58 SARS-CoV-2 (PCR) NEGATIVE (Negative) Influenza Type A (PCR) Negative (Neg) Influenza Type B (PCR) Negative (Neg) RSV (RT-PCR) Negative (Neg) Administered Medications Discontinued Medications Levofloxacin (Levofloxacin 500 Mg Tab) 500 mg PO NOW STA Stop: 11/06/22 21:16 Last Admin: 11/06/22 21:40 Dose: 500 mg Documented By: [facility] Data Radiologist's Impression: Chest X-Ray 11/06/22 19:38 XR chest 1V portable CLINICAL HISTORY: cough TECHNIQUE: Single frontal radiograph of the chest was obtained. Comparison: None available at the time of this dictation. FINDINGS: No lines and tubes are seen. The cardiomediastinal silhouette is normal. The lungs are clear. No evidence of pleural effusion or pneumothorax. IMPRESSION: No acute abnormalities and in particular no evidence of pneumonia. ACT 112: Negative or not required by law. Electronically signed by: Tiburcio Muse M.D. 11/06/2022 8:20 PM Discharge Plan Visit Data Chief Complaint: Catheter Replacement Stated Complaint: CATHETER REPLACEMENT, ABD PAIN ED Provider: Princess,Praneeth T Discharge Problem: Catheter-associated urinary tract infection, Complication, blocked Galloway catheter, Cough Patient Disposition: Home - Self-Care Condition: Fair Discharge Instructions Krames/Other Patient Handouts: ED Galloway Catheter, Care, ED [facility] UTI Activity Restrictions/Additional Instructions: Matt's COVID & flu testing was negative today and his x-ray did not show evidence of pneumonia. His Galloway catheter was changed due to some clots blocking off. We started him on an antibiotic taken every evening for the next 7 days. Maintain good hydration. If there is some slowing of urine output or mild abdominal pressure you may try once or twice to flush the catheter to see if this improves symptoms. If however at anytime there is significant difficulty breathing, high fevers, abdominal pain or swelling, concerns for a blockage of the catheter and cannot be flushed, concerns for urinary retention, confusion, lethargy, or other issues do not hesitate to return here. Continue to follow with your outpatient doctors and urologist over the coming week regarding your symptoms. Forms Stand Alone Forms: My [facility], [facility] Emergency Department, Important Visit Information Prescriptions Prescriptions: New levofloxacin 500 mg tablet 500 mg PO DAILY 7 Days Qty: 7 0RF No Action acetaminophen [Tylenol Extra Strength] 500 mg Tablet 1,000 mg PO DIRECTED PRN (Reason: Pain) Referrals Referrals: Ankur Aden MD [Primary Care Provider] - : Catheter-associated urinary tract infection Qualifiers: Indwelling urinary catheter type: indwelling urethral catheter Encounter type: initial encounter Qualified Code(s): T83.511A - Infection and inflammatory reaction due to indwelling urethral catheter, initial encounter Complication, blocked Galloway catheter Qualifiers: Encounter type: initial encounter Qualified Code(s): T83.091A - Other mechanical complication of indwelling urethral catheter, initial encounter Cough Qualifiers: Cough type: acute Qualified Code(s): R05.1 - Acute cough
--- NOTE | 2022-11-06 20:21 | XRay Report ---
XR chest 1V portable CLINICAL HISTORY: cough TECHNIQUE: Single frontal radiograph of the chest was obtained. Comparison: None available at the time of this dictation. FINDINGS: No lines and tubes are seen. The cardiomediastinal silhouette is normal. The lungs are clear. No evid ence of pleural effusion or pneumothorax. IMPRESSION: No acute abnormalities and in particular no evidence of pneumonia. ACT 112: Negative or not required by law. Electronically signed by: Tiburcio Muse M.D. 11/06/2022 8:20 PM
[2022-11-06 20:51] LABS: Influenza A virus by PCR Negative (Neg); Influenza B virus by PCR Negative (Neg); RSV by PCR Negative (Neg); SARS CoV2 RNA(COVID-19) Ceph NEGATIVE (Negative)
[2022-11-06] MEDS ORDERED: levoFLOXacin 500 MG TAB PO STA (21:15)
[2022-11-06 22:53] LABS: Appearance Urine Turbid (Clear); Bacteria Urine Automated 2+ (Negative); Bilirubin Urine Negative (Negative); Blood Urine 3+ (Negative); Color Urine Orange; Epithelial Cell Urine Auto >30 /lpf (0-5); Glucose Urine UA Negative (Negative); Ketones Urine Negative (Negative); Leukocyte Esterase Urine 3+ (Negative); Nitrite Urine Negative (Negative); Specific Gravity Urine 1.012 (1.000-1.030); Urobilinogen Urine Negative (Negative); WBC Urine Automated >30 /hpf (0-5)
[2022-11-06 22:54] LABS: Protein Urine 2+ (Negative)
[2022-11-06 23:01] LABS: RBC Urine Automated >30 /hpf (0-4)
[2022-11-06 23:02] LABS: Amorphous Sediment Urine Present (None Prsent)
[2022-11-06] MEDS ORDERED: LIDOCAINE 2% JELLY 5 ML TUBE EXT ONE (23:04)
--- NOTE | 2022-11-06 23:35 | Emergency Department Note ---
ED Visit Note As contacted by nursing staff to reevaluate a patient did previously been seen by Dr. Catalan and discharged. Patient did not left the emergency department yet and complained that his catheter was not draining again. Patient with recent exchange of his chronic indwelling Galloway yesterday by [place] [facility] and then presented here again due to catheter dysfunction. A new catheter was placed by nursing which initially did return urine and blood clots and patient was prepared for discharge. At time of discharge nursing attempted to irrigate the Galloway as patient appeared to have lower abdominal distention consistent with urinary retention and complained that it did not feel as though it was draining. I did attempt to irrigate the catheter at bedside myself. I did have return of several small blood clots although irrigation was difficult and urine and instilled fluid could not be withdrawn. Patient does have firmness and tenderness to palpation in the suprapubic region consistent with likely urinary retention. Patient was bladder scanned by nursing staff and still had 3 to 400 mL of urine suggesting the catheter is not draining appropriately. Discussed with patient additional bladder irrigation and management hospital as a precaution. He and family verbalized understanding were in agreement. Continuous bladder irrigation ordered. Labs are drawn and sent, IV established. [facility]AJ[facility] Montoya covering urology was contacted. Case discussed with on-call hospitalist, Dr. Jones for additional inpatient evaluation and management. . : Catheter-associated urinary tract infection Qualifiers: Indwelling urinary catheter type: indwelling urethral catheter Encounter type: initial encounter Qualified Code(s): T83.511A - Infection and inflammatory reaction due to indwelling urethral catheter, initial encounter Complication, blocked Galloway catheter Qualifiers: Encounter type: initial encounter Qualified Code(s): T83.091A - Other mechanical complication of indwelling urethral catheter, initial encounter Cough Qualifiers: Cough type: acute Qualified Code(s): R05.1 - Acute cough
[2022-11-06] MEDS ORDERED: ACETAMINOPHEN 325 MG TAB PO STA (23:42)
[2022-11-06 23:53] LABS: Hematocrit (blood only) 25.1 % (40.1-51.0); Hemoglobin 7.9 g/dl (14.0-18.0); Mean Corpuscular Hgb Conc 31.5 g/dL (32.0-36.0); Mean Corpuscular Volume 82.6 fL (80.0-100.0); Platelet Count 209 K/uL (130-400); RDW Coefficient of Variation 14.5 % (11.5-14.5); RDW Standard Deviation 43.8 fL (36.4-46.3); Red Blood Count 3.04 M/uL (4.63-6.08); White Blood Count 13.09 K/ul (4.8-10.8)
[2022-11-07 00:14] LABS: BUN Creatinine Ratio 19.7 (10-20); Calcium 8.6 mg/dl (8.5-10.1); Creatinine Clr Calc Pharmacy 10.6 ml/min; Est GFR (Non-African American) 15.5 ml/min; Potassium 3.5 mmol/L (3.5-5.1)
--- NOTE | 2022-11-07 00:14 | History & Physical Report ---
Date of Service November 07, 2022 Assessment & Plan (1) Complication, blocked Cobb catheter: Plan: Recurrent catheter obstruction with clot PSA 653 --> 738 08/2022, patient has declined surgical intervention for his cancer, refused all treatments other than Lupron but does not wish for Hospice yet either - Refused palliative radiation, pt reports unsure if he would consider this at this time but notes his pain has worsened - Urology consulted for acute management of obstruction/clot for cobb placement/irrigation - Given KIM Renal/bladder US pending - Latex allergic, allergies updated - Per pt and family has had extreme delirium/confusion even with small doses of narcotics UTI Leukocytosis of 13.09 UA with blood, bacteria, sediment, epithelial cells 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 Given KIM/CrCl 10 dose adjusted to 500mg Q48h, continue to adjust for daily renal function Acute on chronic anemia With clots in the urine Baseline hemoglobin 912, acutely decreased to 7.9 - Not on blood thinners/antiplatelets - ? bleeding vs suppression with malignancy and CKD - Iron studies 05/2022: Iron 36, UIBC normal 277, xferrin normal 231, Ferritin normal/low-normal 75. Suspected w/ CKD/malignancy KIM on CKD - Cr 05/2022 0.8 - Admitting Cr acutely elevated to 3.51 - Suspect obstructive, presented requiring irrigation - BP normal, pulse normal - Catheter management as noted, trend BMP - Renally dose medications - Potassium 3.5, no evidence of fluid overload. - BMP daily DVT PPx: SCDs, pharmacoppx deferred in setting of possible bleeding and anemia CODE STATUS: Full Code Diet: Clears, Advance if no cysto anticipated Dispo: Med/Surg (2) Acute urinary obstruction: (3) Catheter-associated urinary tract infection: (4) Prostate cancer: History of Present Illness Primary Care Provider: Ankur Aden MD Matt Poe is an 82yo M with a past medical history of recurrent UTI, recurrent catheter obstruction, prostate cancer with suspected metastasis presented with recurrent obstruction and clot. Cobb was exchanged x2 in ER and patient had recurrent obstruction with difficulty with output. Had a infected appearing UA and was recommended for admission for recurrent obstruction, CBI, and treatment of UTI with urology consult. 1 Matt is seen at the bedside with his family present. They report that he was in his normal state of health, but has been fighting prostate cancer for many years with chronic catheterization until yesterday around 4 PM. He had a Cobb exchange yesterday, yesterday afternoon developed worsening suprapubic pain and decreased urine output. Had a Cobb exchange again, and in the ER with pink urine and clots flushed. Following this he continued to have pain and minimal output, and reobstruction and stopped draining again in ER which point medicine was consulted for admission, urology was consulted for catheter exchange evaluation. Patient is uncomfortable and very agitated at bedside, history is collected with the assistance of family at bedside. He reports he does have a latex allergy, this has been updated in the chart. He reports he would like medications for pain, he and his family note that with morphine he has become extremely delirious and they have had bad experiences with family members declining rapidly after narcotic analgesia. It is their preference to use 1 or 2 doses at the minimum doses at time of admission, but avoid this if at all possible during admission. Patient denies recent fever, chills, sweats, nausea, vomiting. Does endorse suprapubic pain as noted. Does not use medical marij uana, alcohol, or tobacco. Full code. Allergies Allergy/AdvReac Type Severity Reaction Status Date / Time Latex, Natural Rubber AdvReac Rash, skin Verified 11/07/22 00:50 swelling morphine AdvReac Verified 11/07/22 00:50 Home Medications Medication Instructions Recorded Confirmed Type acetaminophen 500 mg tablet 1,000 mg PO DIRECTED PRN Pain 04/01/22 11/06/22 History (Tylenol Extra Strength) levofloxacin 500 mg tablet 500 mg PO DAILY 7 days #7 tabs 11/06/22 Rx Past Med/Surg History Medical History Acute kidney injury BPH (benign prostatic hyperplasia) GERD (gastroesophageal reflux disease) Hematuria Hypertension Prostate cancer Ruptured bladder UTI (urinary tract infection) Surgical History H/O inguinal hernia repair History of lumbar laminectomy Hx of appendectomy Family History Father Stroke Heart disease Grandfather (Paternal) Prostate cancer Denies family history of Ovarian cancer Diabetes Myocardial infarction Breast cancer Colorectal cancer Social History Smoking Status: Never smoker Second Hand Exposure: No; Hx Alcohol Use: No Hx Substance Use: No Preferred Language: Dutch Communication Ability: Effective Visual Impairment: No Limitations Hearing Ability: Hard of Hearing Perinatal Technician Required: No Beliefs That Will Affect Care: None marital status: Single Current Living Situation: Significant Other Current Living Situation Comment: home with significant otherdimas current occupational status: retired current occupation: retired from career with [employer] How many Children do You have: 1 Feels Safe at Home: Yes Childhood Exposure to Second-Hand Smoke: Yes Dental Care, Regularly: No Physical Activity Frequency: Daily Seatbelt Use: always Sunscreen Use: No Assistive Devices: Wheelchair Review of Systems Review of Systems: All systems reviewed & are unremarkable except as noted in Subjective Physical Exam Physical Exam: General: A&Ox3.Appears uncomfortable. Chronically ill/cachectic HEENT: Atraumatic, normocephalic. PERLAA, vision/hearing intact Pulm: Diminished -wheezes, -rales, -rhonchi. Symmetrical chest rise. No increased work of breathing. No respiratory distress. Cardiac: RRR. Radial pulses intact and symmetrical. Abdominal: +suprapubic tenderness, no rebound, no guarding. : cobb in place draining pink urine with clot Results & Data Results & Data ([facility]) Vital Signs (Past 12 Hours) Vital Signs Temp Pulse Pulse Resp BP BP Pulse Ox 11/06/22 21:43 88 18 126/69 99 11/06/22 19:24 36.3 C L 100 H 18 155/88 H 99 O2 Del Method 11/06/22 21:43 Room Air 11/06/22 19:24 Room Air PG Care Time/CCT Total # of Minutes Spent Total Time Spent with Patient: Total time spent is greater than 50% in coordination of care (as documented) at patient's floor/unit and/or counseling patient: Coding Level of Care Code 19971 Initial Inpt Care Lvl 2 Diagnoses Complication, blocked Cobb catheter T83.091A Encounter type: initial encounter Acute urinary obstruction N13.9 Catheter-associated urinary tract infection T83.511A; N39.0 Encounter type: initial encounter Indwelling urinary catheter type: indwelling urethral catheter Prostate cancer C61 (1) Complication, blocked Cobb catheter Encounter type: initial encounter Qualified Code(s): T83.091A - Other mechanical complication of indwelling urethral catheter, initial encounter (2) Catheter-associated urinary tract infection Encounter type: initial encounter Indwelling urinary catheter type: indwelling urethral catheter Qualified Code(s): T83.511A - Infection and inflammatory reaction due to indwelling urethral catheter, initial encounter; N39.0 - Urinary tract infection, site not specified
[2022-11-07 00:16] LABS: INR 1.1 (0.9-1.1); Prothrombin Time 11.6 Seconds (9.0-12.0)
[2022-11-07 00:17] LABS: Basophils # (auto) 0.01 K/uL (0-0.2); Basophils % (auto) 0.1 %; Immature Granulocytes # (auto) 0.05 K/uL (0.00-0.02); Immature Granulocytes % (auto) 0.4 %; Lymphocytes # (auto) 0.36 K/uL (1.2-3.4); Lymphocytes % (auto) 2.8 %; Monocytes # (auto) 0.35 K/uL (0.24-0.82); Monocytes % (auto) 2.7 %; Neutrophils # (auto) 12.32 K/uL (1.4-6.5); RBC Morphology Unremarkable
[2022-11-07] MEDS ORDERED: HYDROmorphone INJ 0.5 MG/0.5 ML SYR IV PRN ×2 (00:30→00:38)
[2022-11-07] MEDS ORDERED: diphenhydrAMINE 50 MG/ML VIAL IV PRN (01:08)
[2022-11-07] MEDS ORDERED: EPINEPHrine INJ 1 MG/ML AMP IM PRN (01:08)
--- NOTE | 2022-11-07 01:18 | Urology Consultation ---
Date of Consultation November 07, 2022 Assessment & Plan (1) Complication, blocked Cobb catheter: Due to the multiple catheter exchanges and concern for catheter clotting off coupled with the fact that patient appears to have acute kidney injury the decision was made to have the patient admitted on the hospitalist service: Prior to this provider's arrival the patient had a [address] that was exchanged by the ED staff prior to my arrival. The staff in the ED noted that the catheter in place at time of arrival appeared to be a regular non-latex free catheter. The new catheter that was placed was not latex free. Following my arrival, attempts were made to flush and irrigate this Cobb catheter as noted in the HPI. As there continues to be greater than 100 cc of urine in patient's bladder by bladder scan and he continued to have discomfort the decision was made to place a three-way Cobb catheter for consideration of continuous bladder irrigation. A 22 Italian three-way Cobb catheter which was not latex free was placed without difficulty. (Initial attempt was by nursing, but due to difficulties was placed by myself) This catheter flushed and irrigated easily but the patient again had greater than 100 cc of urine after bladder scan. Following placement of this catheter it was drawn to the staff's attention by the patient's family that he had a latex allergy. This allergy was not listed on the patient's chart prior to this notification. They note that this causes itching and rash but the patient specifically denied any respiratory difficulties with exposure to latex. The 22 Italian three-way Cobb catheter was subsequently removed and replaced with a latex free 20 Italian Cobb catheter. This was placed without difficulty and subsequently flushed and irrigated easily following its placement. A bladder scan was subsequently performed after this revealing only 15 to 30 cc of urine. We will continue to monitor the patient's progress with his new Cobb catheter in place. Manual attempts to flush and irrigate can be employed if the catheter becomes clogged but it appeared to be draining following the conclusion of my visit. It is noteworthy to mention that following the conclusion my visit the patient did not exhibit any hives, rash, pruritus, wheezing, or evidence of airway compromise. Due to concern for underlying UTI and multiple cobb exchanges the patient has bee treated with antibiotics in the form of levaquin. Serial labs will be followed due to noted anemia and KIM. I discussed with the hospitalist and they will monitor the patient on telemetry due to his exposure to latex with questionable latex allergy and measures will be taken if he appears to have any adverse reaction. History of Present Illness Reason for Consultation: Malfunctioning Cobb catheter History of Present Illness This is an 82-year-old male with an underlying history of prostate cancer. According to the patient and his family he did not have surgery secondary to this problem. Patient's outpatient records were reviewed and he does see Dr. Mcdonough of [facility]. The patient was seen in the office on 09/20/2022. According to the office notes the patient refuses all treatments other than Lupron and there is concern the patient now has metastatic disease. 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 The patient was seen in the urology office on 11/05/22 where patient had a pre-existing 20 Italian catheter removed without difficulty and he had a new 20 Italian catheter inserted without difficulty. The patient notes that his Cobb catheter was draining fine but earlier today he noted some hematuria and he noted that his Cobb catheter became clogged prompting him to present to the emergency department. In the emergency department the patient had his pre-existing Cobb catheter removed. This was a 20 Italian Cobb catheter and the patient did have a new 20 Italian Cobb catheter inserted without difficulty. This catheter was functioning initially but subsequently became clotted. Decision was then made to place patient on contin uous bladder irrigation by the emergency room physician and plans for a placement of a three-way Cobb catheter were placed. Prior to placing a three- way Cobb catheter attempts were made to flush and irrigate the catheter but the patient continued to have approximately 110 cc of urine in his bladder following irrigation. A 22 Italian three-way Cobb catheter was placed without difficulty and flushed and irrigated easily. Following placement of this catheter the patient continued to have approximately 110 cc of urine in his catheter by bladder scan. Following placement of the three-way Cobb catheter it was drawn to the staff's attention that the patient had a latex allergy and the catheter that was in place was not latex free and it was therefore removed. The patient had a latex free 20 Italian Cobb catheter placed. This catheter was then flushed and irrigated easily and subsequent bladder scan revealed patient only had 15 to 30 cc of urine in his bladder. In the emergency department the patient did have labs checked which showed a white blood cell count of 13.0. His hemoglobin and hematocrit were 7.9 and 25.1. His platelet count was within the normal range. His coagulation studies were noted to be normal. Chemistry profile showed sodium and potassium were both within normal range. His BUN and creatinine were elevated at 69 and 3.5. Urinalysis showed 3+ blood, 3+ leukocyte Estrace, greater than 30 white blood cells per high-power field, and 2+ bacteria. This specimen was negative for nitrites. The patient was also checked for COVID, influenza a and B, and RSV all of which were negative. While the patient was in some considerable discomfort during his catheter exchanges following placement of the 20 Italian latex free catheter the patient was noted to be resting comfortably in bed in no distress. Allergies Allergy/AdvReac Type Severity Reaction Status Date / Time Latex, Natural Rubber AdvReac Rash, skin Verified 11/07/22 00:50 swelling morphine AdvReac Verified 11/07/22 00:50 Home Medications Medication Instructions Recorded Confirmed Type acetaminophen 500 mg tablet 1,000 mg PO DIRECTED PRN Pain 04/01/22 11/06/22 History (Tylenol Extra Strength) levofloxacin 500 mg tablet 500 mg PO DAILY 7 days #7 tabs 11/06/22 Rx Patient History Medical History Acute kidney injury BPH (benign prostatic hyperplasia) GERD (gastroesophageal reflux disease) Hematuria Hypertension Prostate cancer Ruptured bladder UTI (urinary tract infection) Surgical History H/O inguinal hernia repair History of lumbar laminectomy Hx of appendectomy Family History Father Stroke Heart disease Grandfather (Paternal) Prostate cancer Denies family history of Ovarian cancer Diabetes Myocardial infarction Breast cancer Colorectal cancer Social History Smoking Status: Never smoker Second Hand Exposure: No; Do You Dip or Chew Tobacco: No; Hx Alcohol Use: No Hx Substance Use: No Preferred Language: Luxembourger Communication Ability: Effective Visual Impairment: No Limitations Hearing Ability: Hard of Hearing Safety Net Maker Required: No Beliefs That Will Affect Care: None marital status: Single Current Living Situation: Significant Other current occupational status: retired current occupation: retired from career with [employer] How many Children do You have: 1 Feels Safe at Home: Yes Safety Concerns: Feels Safe At This Time Childhood Exposure to Second-Hand Smoke: Yes Dental Care, Regularly: No Physical Activity Frequency: Daily Seatbelt Use: always Sunscreen Use: No Assistive Devices: Glasses and Wheelchair Review of Systems Constitutional: no fever and no chills Respiratory: no cough, no dyspnea and no wheezing Cardiovascular: no chest pain Gastrointestinal: + abdominal pain (Suprapubic discomfort); no nausea and no vomiting Genitourinary: + as per Subjective / HPI; no flank pain Musculoskeletal: no back pain Neurologic: no localized weakness Physical Exam Constitutional: + thin; no acute distress Eyes: no conjunctival abnormality ENMT: Ears: no hearing impairment and no external ear abnormality Neck: trachea midline Respiratory: normal respiratory effort; no respiratory distress and no labored breathing Cardiovascular: Rate/Rhythm: regular rate and regular rhythm Gastrointestinal (Abdomen): Abdomen is soft, nondistended, nonrigid. The patient did have discomfort with palpation of the suprapubic region Musculoskeletal: No calf tenderness Skin: no rashes Neurologic: moves all extremities Psychiatric: A+Ox3, euthymic affect Results & Data ([facility]) Vital Signs (Past 12 Hours) Vital Signs Temp Pulse Pulse Resp BP BP Pulse Ox 11/06/22 21:43 88 18 126/69 99 11/06/22 19:24 36.3 C L 100 H 18 155/88 H 99 O2 Del Method 11/06/22 21:43 Room Air 11/06/22 19:24 Room Air PG Care Time/CCT Total # of Minutes Spent Total Time Spent with Patient: Total time spent is greater than 50% in coordination of care (as documented) at patient's floor/unit and/or counseling patient: Coding Level of Care Code 75314 Inpt Consult Level 5 Diagnoses Complication, blocked Cobb catheter T83.091A Encounter type: initial encounter (1) Complication, blocked Cobb catheter Encounter type: initial encounter Qualified Code(s): T83.091A - Other mechanical complication of indwelling urethral catheter, initial encounter
[2022-11-07] MEDS ORDERED: POLYETHYLENE (MIRALAX) 17 GM PACK PO PRN (02:57)
[2022-11-07] MEDS: ACETAMINOPHEN 325 MG TAB PO SCH ×3 (05:34→18:07)
--- NOTE | 2022-11-07 09:59 | Ultrasound Report ---
RENAL ULTRASOUND HISTORY: ?hydro, recurrent bladder obstruction COMPARISON: Abdomen and pelvis CT 12/29/2021. FINDINGS: Right kidney: 10.5 cm. Severe right hydroureteronephrosis with areas of echogenic debris/internal ech oes within the right renal collecting system. Left kidney: 12.2 cm. Severe left hydroureteronephrosis with areas of echogenic debris/internal echoe s within the left renal collecting system. Bladder: Bladder wall thickening. The bladder is decompressed by Galloway catheter. Abnormal asymmetric thickening within the right side of the bladder wall which could represent an underlying bladder/prox imal mass. IMPRESSION: 1. Interval development of severe bilateral hydroureteronephrosis. There is echogenic debris/internal echoes within the renal collecting systems which could represent stasis or underlying infection. 2. Diffuse bladder wall thickening which is decompressed by Galloway catheter. There is abnormal asymmet maria teresa thickening within the right side of the bladder which could represent an underlying bladder/prost ate mass. ACT 112: Negative or not required by law. Electronically signed by: Paramjit Amin M.D. 11/07/2022 9:58 AM
[2022-11-07 10:25] LABS: Hematocrit (blood only) 22.7 % (40.1-51.0); Hemoglobin 7.1 g/dl (14.0-18.0); Mean Corpuscular Hemoglobin 25.5 pg (25.0-34.0); Mean Corpuscular Hgb Conc 31.3 g/dL (32.0-36.0); Mean Corpuscular Volume 81.7 fL (80.0-100.0); Mean Platelet Volume 9.8 fL (9.4-12.4); Platelet Count 180 K/uL (130-400); RDW Coefficient of Variation 14.6 % (11.5-14.5); RDW Standard Deviation 43.7 fL (36.4-46.3); Red Blood Count 2.78 M/uL (4.63-6.08); White Blood Count 9.65 K/ul (4.8-10.8)
[2022-11-07 10:43] LABS: Immature Granulocytes # (auto) 0.04 K/uL (0.00-0.02); Immature Granulocytes % (auto) 0.4 %; Lymphocytes # (auto) 0.61 K/uL (1.2-3.4); Lymphocytes % (auto) 6.3 %; Monocytes # (auto) 0.29 K/uL (0.24-0.82); Neutrophils # (auto) 8.71 K/uL (1.4-6.5); Neutrophils % (auto) 90.3 %; Polychromasia 1+
[2022-11-07 10:53] LABS: BUN Creatinine Ratio 20.4 (10-20); Calcium 8.5 mg/dl (8.5-10.1); Creatinine Clr Calc Pharmacy 11.2 ml/min; Est GFR (African American) 19.1 ml/min; Est GFR (Non-African American) 16.5 ml/min; Potassium 3.4 mmol/L (3.5-5.1)
--- NOTE | 2022-11-07 11:20 | Urology Progress Note ---
Date of Service November 07, 2022 Assessment & Plan (1) Complication, blocked Galloway catheter: Plan 82yo/M with underlying hx of prostate cancer who was admitted with recurrent catheter obstruction, possible UTI, acute on chronic anemia, and KIM on CKD. - Galloway catheter currently intact and patent, draining clear yellow urine with sediment in tubing. - Pt is afebrile and hemodynamically stable. - Labs reviewed -leukocytosis improved to 9.65, hemoglobin 7.1, creatinine 3.51-3.34. Continue to trend. - Urine culture pending, on IV levofloxacin. - Maintain Galloway catheter. Can gently irrigate prn clots, retention, suprapubic pain. - Continue supportive care and antibiotic therapy. - Urology will follow. Admission and Anticipated Discharge Date Admission Date: November 07, 2022 Subjective Patient examined at bedside this AM. Awake, resting bed on arrival. No acute distress. Galloway catheter intact, draining clear yellow urine with some sediment noted in tubing. Review of Systems Constitutional: as per Subjective / HPI Genitourinary: + as per Subjective / HPI Physical Exam Constitutional: + ill appearing and + thin; no acute distress Respiratory: no respiratory distress and no labored breathing Gastrointestinal (Abdomen): Percussion/Palpation: + abdomen tender (Mild suprapubic tenderness with palpation) and abdomen soft Skin: No visible rashes or lesions exposed skin areas Neurologic: awake Psychiatric: Orientation: alert and oriented to person Genitourinary: Galloway catheter intact, draining clear yellow urine with sediment noted in tubing Results & Data ([facility]) Vital Signs (Past 12 Hours) Vital Signs Temp Pulse Resp BP Pulse Ox O2 Del Method 11/07/22 09:41 36.3 C L 68 18 156/84 H 98 Room Air 11/07/22 08:45 37.0 C 74 17 138/71 98 Room Air 11/07/22 07:00 67 19 140/79 95 Room Air 11/07/22 03:00 74 16 122/78 100 Room Air 11/07/22 01:31 100 H 20 155/112 H 99 Room Air PG Care Time/CCT Total # of Minutes Spent Total Time Spent with Patient: Total time spent is greater than 50% in coordination of care (as documented) at patient's floor/unit and/or counseling patient: Coding Level of Care Code None Diagnoses Complication, blocked Galloway catheter T83.091A Encounter type: initial encounter (1) Complication, blocked Galloway catheter Encounter type: initial encounter Qualified Code(s): T83.091A - Other mechanical complication of indwelling urethral catheter, initial encounter
--- NOTE | 2022-11-07 11:32 | Communication Note ---
Date of Service: November 07, 2022 Patient seen and examined but admitted the same day therefore I will not be billing for this encounter.
[2022-11-07] MEDS: ONDANSETRON INJ 2 MG/ML 2 ML VIAL IV PRN (19:33)
[2022-11-07] MEDS: PHENAZOPYRIDINE HCL 100 MG TAB PO PRN (21:23)
[2022-11-08] MEDS: ACETAMINOPHEN 325 MG TAB PO SCH ×4 (00:39→19:06)
[2022-11-08 09:21] LABS: Basophils # (auto) 0.01 K/uL (0-0.2); Basophils % (auto) 0.1 %; Hematocrit (blood only) 26.8 % (40.1-51.0); Hemoglobin 8.3 g/dl (14.0-18.0); Immature Granulocytes # (auto) 0.07 K/uL (0.00-0.02); Immature Granulocytes % (auto) 0.7 %; Lymphocytes # (auto) 0.74 K/uL (1.2-3.4); Lymphocytes % (auto) 7.4 %; Mean Corpuscular Hemoglobin 25.8 pg (25.0-34.0); Mean Corpuscular Volume 83.2 fL (80.0-100.0); Mean Platelet Volume 10.6 fL (9.4-12.4); Monocytes # (auto) 0.31 K/uL (0.24-0.82); Monocytes % (auto) 3.1 %; Neutrophils % (auto) 88.7 %; Platelet Count 243 K/uL (130-400); RDW Coefficient of Variation 14.7 % (11.5-14.5); RDW Standard Deviation 44.8 fL (36.4-46.3); Red Blood Count 3.22 M/uL (4.63-6.08); White Blood Count 10.03 K/ul (4.8-10.8)
[2022-11-08 09:42] LABS: BUN Creatinine Ratio 19.7 (10-20); Calcium 8.4 mg/dl (8.5-10.1); Creatinine Clr Calc Pharmacy 10.7 ml/min; Est GFR (Non-African American) 15.6 ml/min; Potassium 3.6 mmol/L (3.5-5.1)
--- NOTE | 2022-11-08 10:05 | Hospitalist Progress Note ---
Date of Service November 08, 2022 Assessment & Plan (1) Complication, blocked Galloway catheter: Plan: Attending: Dr. Martinez Impression: Is an 82-year-old man admitted yesterday for blocked indwelling Galloway catheter. Current prostate cancer with poor prognosis as patient has refused most care. Catheter was exchanged by urology. Discussed with urology today and they recommend continued IV antibiotics for now. Anticipate converting from IV to p.o. Patient is asymptomatic. Day #2 of IV antibiotics with levofloxacin 500 mg Q48 hours. Procalcitonin 1.79 Afebrile. Urine culture with 3 organisms growing Continues with elevated creatinine of 3.5 today Urology consulted and following (2) Anemia: Plan: Patient with hemoglobin level of 7.9 November 06, 2022. Previous hemoglobin 05/28/2022 was 9.6 Hemoglobin dropped to 7.1 yesterday but recovered to 8.3 today without intervention MCV and MCH are within normal limits Iron studies 06/07/2022 were within normal limits Most likely anemia of chronic disease Continue to follow serial labs Hemodynamically stable (3) Prostate cancer: Plan: Patient has refused treatment other than Lupron Will defer outpatient management to urology and oncology (4) UTI (urinary tract infection): Plan: Urine culture with three types of bacteria Continue IV levofloxacin for now per urology Bladder scanned at bedside today for 13ml of residual urine Further management of UTI and indwelling catheter to urology (5) Acute renal failure: Plan: Most likely obstructive secondary to blocked catheter No echocardiograms available and no reports of CHF Will gently hydrate with Normosol and repeat labs in the morning (6) Protein-calorie malnutrition, severe: Plan: BMI=16 and hx prostate cancer is evaluated by RD and documented with 14% wt loss x 6 months, severe muscle loss to temples and clavicle region; severe malnutrition Secondary to active malignancy Continue with protein supplements as tolerated. Appreciate Chairman & Ceo input Plan DVT prophylaxis: Hold chemical prophylaxis as patient currently has hematuria as well as anemia. Continue SCDs and ambulate as tolerated Admission and Anticipated Discharge Date Admission Date: November 07, 2022 Supervising Physician Co-Signing Physician Notes Attending Attestation - Chart reviewed, care plan d/w BALAJI Finley. I agree w/ the [place] components of his documentation. Rashid Martinez MD Subjective Attending: Dr. Martinez This is a an 82-year-old male who was admitted yesterday for blocked Galloway catheter. PSA is 653 and elevated at 738. Patient does have cancer that is followed by urology. He refused all treatments other than Lupron but does not wish for hospice at this time. White blood cell count yesterday was 13.09. He was started on levofloxacin while cultures are pending. Patient also has acute kidney disease with an admitting creatinine of 3.51. Urology was consulted and patient has been seen by Goldy Liz PA-C and GÓMEZ Zamora. 11/08/22 08:56 11/08/22 08:56 Procalcitonin is 1.79 Patient is afebrile and saturating 100% on room air Lactic acid was not checked Patient seen and examined at bedside. He offers no acute complaints. Denies fever or chills but states that he sometimes gets hot flashes that are transient. No burning from catheter. No other acute complaints Review of Systems Review of Systems: A total of 10 systems was reviewed and is negative other than as listed in the HPI Physical Exam Physical Exam: GENERAL : No acute distress EYES: No icterus, gaze conjugate NOSE: No evidence of epistaxis MOUTH: No lesions or candidiasis NECK: Supple LUNGS: CTA B/L, no wheezes, rales or rhonchi HEART: Regular, rate controlled ABDOMEN: Soft, NT, ND, BS Present EXTREMITIES: No LE edema, pedal pulses intact NEURO: A&OX3 Results & Data Results & Data ([facility]) Vital Signs (Past 12 Hours) Vital Signs Temp Pulse Resp BP Pulse Ox O2 Del Method 11/08/22 07:36 36.3 C L 76 18 129/64 100 Room Air 11/07/22 22:31 36.3 C L 73 14 123/79 98 Room Air Critical Care Results & Data Vital Signs (Past 12 Hours) Vital Signs Temp Pulse Resp BP Pulse Ox O2 Del Method 11/08/22 07:36 36.3 C L 76 18 129/64 100 Room Air 11/07/22 22:31 36.3 C L 73 14 123/79 98 Room Air Lab & Micro Results (Past 24 Hours) No Data to Display No Data to Display No Data to Display Microbiology 11/06/22 19:50 Urine Culture - Final Urine,Indwelling Cath Three types of organisms present, all high counts. R epeat collection recommended. No further identifications or sensitivities to follow. I & O Totals 24 Hours 11/07/22 11/08/22 11/09/22 06:59 06:59 06:59 Intake Total 100 / 100 Output Total 300 / 300 1000 / 1000 Balance -200 / -200 -1000 / -1000 Cumulative 11/06/22 19:19 thru 11/08/22 06:00 Intake Total 100 Output Total 1300 Balance -1200 RT Ventilator Mngmt (Last Documented) Ventilator Ordered Settings Respiratory Rate 18 11/08/22 07 :36 Ventilator - PT Measurements Respiratory Rate 18 PG Care Time/CCT Total # of Minutes Spent Total Time Spent with Patient: Total time spent is greater than 50% in coordination of care (as documented) at patient's floor/unit and/or counseling patient: Coding Level of Care Code 98459 Subseq Hosp Care Lvl 2 Diagnoses Complication, blocked Galloway catheter T83.091A Encounter type: initial encounter Anemia D64.9 Prostate cancer C61 UTI (urinary tract infection) N39.0 Acute renal failure N17.9 Acute renal failure type: unspecified Protein-calorie malnutrition, severe E43 (1) Acute renal failure Acute renal failure type: unspecified Qualified Code(s): N17.9 - Acute kidney failure, unspecified (2) Complication, blocked Galloway catheter Encounter type: initial encounter Qualified Code(s): T83.091A - Other mechanical complication of indwelling urethral catheter, initial encounter
--- NOTE | 2022-11-08 10:46 | Urology Progress Note ---
Date of Service November 08, 2022 Assessment & Plan (1) Complication, blocked Galloway catheter: (2) Prostate cancer: (3) Acute renal failure: Plan 82yo/M with hx of underlying prostate cancer (has refused any treatments other than Lupron) who was admitted with recurrent catheter obstruction, possible UTI, acute on chronic anemia, and KIM on CKD. - Pt is afebrile and hemodynamically stable. - Labs reviewed -wbc 10.03, hemoglobin 8.3, creatinine 3.51-3.34-3.50 today. Continue to trend. - Urine culture with 3 types of organisms, blood cultures prelim no growth. - Continues on IV levofloxacin. - Galloway catheter intact and patent, draining cloudy yellow urine with some sediment. Bladder scanned at bedside for 13ml. - Maintain Galloway catheter. Can gently irrigate prn clots, retention, suprapubic pain. - Continue supportive care and antibiotic therapy. - Continues to have elevated creatinine, possibly due to obstruction from untreated prostate cancer. - Recommend palliative care vs. oncology consultation depending on patient wishes. - Urology will follow. Case reviewed with Dr. Ram. Admission and Anticipated Discharge Date Admission Date: November 07, 2022 Subjective Patient examined at bedside this AM. Asleep on arrival, awakened to name. No acute distress. Galloway catheter intact, draining cloudy yellow urine with some sediment. Urine output overnight -350ml. Reports mild suprapubic discomfort. No fevers. Denies n/v. Review of Systems Constitutional: as per Subjective / HPI Gastrointestinal: as per Subjective / HPI Genitourinary: + as per Subjective / HPI Physical Exam Constitutional: + ill appearing and + thin; no acute distress Respiratory: no respiratory distress and no labored breathing Gastrointestinal (Abdomen): Percussion/Palpation: + abdomen tender (Mild suprapubic tenderness with palpation) Neurologic: awake Psychiatric: Orientation: alert and oriented to person Genitourinary: Galloway catheter intact, draining cloudy yellow urine with sediment. Results & Data ([facility]) Vital Signs (Past 12 Hours) Vital Signs Temp Pulse Resp BP Pulse Ox O2 Del Method 11/08/22 07:36 36.3 C L 76 18 129/64 100 Room Air PG Care Time/CCT Total # of Minutes Spent Total Time Spent with Patient: Total time spent is greater than 50% in coordination of care (as documented) at patient's floor/unit and/or counseling patient: Coding Level of Care Code 84681 Subseq Hosp Care Lvl 2 Diagnoses Complication, blocked Galloway catheter T83.091A Encounter type: initial encounter Prostate cancer C61 Acute renal failure N17.9 Acute renal failure type: unspecified (1) Acute renal failure Acute renal failure type: unspecified Qualified Code(s): N17.9 - Acute kidney failure, unspecified (2) Complication, blocked Galloway catheter Encounter type: initial encounter Qualified Code(s): T83.091A - Other mechanical complication of indwelling urethral catheter, initial encounter
[2022-11-08] MEDS: levoFLOXacin/D5W 500 MG/100 ML BAG IV SCH (12:13)
[2022-11-08] MEDS: PHENAZOPYRIDINE HCL 100 MG TAB PO PRN (13:18)
[2022-11-08] MEDS: NORMOSOL-R 1,000 ML IV SCH (19:06)
[2022-11-08] MEDS: ONDANSETRON INJ 2 MG/ML 2 ML VIAL IV PRN (23:24)
[2022-11-09] MEDS: ACETAMINOPHEN 325 MG TAB PO SCH ×5 (00:28→23:34)
[2022-11-09] MEDS: NORMOSOL-R 1,000 ML IV SCH ×3 (04:17→23:35)
[2022-11-09 07:48] LABS: Hematocrit (blood only) 23.1 % (40.1-51.0); Hemoglobin 7.3 g/dl (14.0-18.0); Mean Corpuscular Hemoglobin 25.7 pg (25.0-34.0); Mean Corpuscular Hgb Conc 31.6 g/dL (32.0-36.0); Mean Corpuscular Volume 81.3 fL (80.0-100.0); Mean Platelet Volume 10.1 fL (9.4-12.4); Platelet Count 215 K/uL (130-400); RDW Coefficient of Variation 14.8 % (11.5-14.5); Red Blood Count 2.84 M/uL (4.63-6.08); White Blood Count 8.53 K/ul (4.8-10.8)
[2022-11-09 08:26] LABS: BUN Creatinine Ratio 19.6 (10-20); Calcium 8.1 mg/dl (8.5-10.1); Creatinine Clr Calc Pharmacy 11.4 ml/min; Est GFR (African American) 19.6 ml/min; Est GFR (Non-African American) 16.9 ml/min; Potassium 3.7 mmol/L (3.5-5.1)
--- NOTE | 2022-11-09 15:16 | Hospitalist Progress Note ---
Date of Service November 09, 2022 Assessment & Plan (1) Complication, blocked Galloway catheter: Plan: Pt is an 82-year-old man admitted for blocked indwelling Galloway catheter. Current prostate cancer with poor prognosis as patient has refused most treatment. Exchanged Galloway Continue tx of UTI with levofloxacin 500 mg Q48 hours. Procalcitonin 1.79 Afebrile. Urine culture with 3 organisms growing, BCxs NGTD (2) Acute renal failure: Plan: Most likely obstructive secondary to blocked catheter. 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 Other lytes ok, making urine. Follow BMP in AM (3) Anemia: Plan: Patient with hemoglobin level of 7.9 November 06, 2022. Previous hemoglobin 05/28/2022 was 9.6 Hemoglobin remains low today at 7.3, no further hematuria MCV within normal limits Iron studies 06/07/2022 were within normal limits Most likely anemia of chronic disease and some blood loss from hematuria -follow CBC -transfuse if Hgb<7.0 (4) Prostate cancer: Plan: Patient has refused treatment other than Lupron Will defer outpatient management to urology and oncology (5) UTI (urinary tract infection): Plan: as above (6) Protein-calorie malnutrition, severe: Plan: BMI=16 and hx prostate cancer is evaluated by RD and documented with 14% wt loss x 6 months, severe muscle loss to temples and clavicle region; severe malnutrition Secondary to active malignancy Continue with protein supplements as tolerated. Appreciate Marble Polisher Hand input Plan DVT prophylaxis: Hold chemical prophylaxis due to hematuria as well as anemia. Continue SCDs and ambulate as tolerated Dispo-continued stay, PT recommends home with home health when ready Admission and Anticipated Discharge Date Admission Date: November 07, 2022 Subjective Pt feeling "up and down." Has some burning sensation in his suprapubic region he said for a very long time. No BM since the day of admission. Is eating but appetite comes and goes. No SOB, no CP. Does have a chronic cough. Spoke with daughter at bedside. He did go for a walk today in halls. Review of Systems Review of Systems: All systems reviewed & are unremarkable except as noted in HPI & below Physical Exam Constitutional: WD/WN, vitals as above Eyes: + anicteric sclerae Neck: trachea midline, no thyromegaly Respiratory: normal respiratory effort, lungs clear to auscultation Cardiovascular: RRR, no murmur, no edema Chest (Breasts): Chest: normal inspection of chest Gastrointestinal (Abdomen): normal bowel sounds, soft, nontender, no hepatosplenomegaly Musculoskeletal: Extremities: extremities normal to inspection; no cyanosis and no clubbing Skin: no rashes, warm and dry Neurologic: moves all extremities and awake; no focal motor deficits Psychiatric: A+Ox3, euthymic affect Genitourinary: + penis abnormality (Galloway in place draining clear, yellow urine) Lymphatic: no lymphedema Results & Data Results & Data ([facility]) Vital Signs (Past 12 Hours) Vital Signs Temp Pulse Resp BP Pulse Ox O2 Del Method 11/09/22 06:58 36.8 C 78 16 128/72 96 Room Air Laboratory Results 11/09/22 11/09/22 Range/Units 07:17 07:17 WBC 8.53 (4.8-10.8) K/ul RBC 2.84 L (4.63-6.08) M/uL Hgb 7.3 L (14.0-18.0) g/dl Hct 23.1 L (40.1-51.0) % MCV 81.3 (80.0-100.0) fL MCH 25.7 (25.0-34.0) pg MCHC 31.6 L (32.0-36.0) g/dL RDW Std Deviation 44.0 (36.4-46.3) fL RDW Coeff of Shila 14.8 H (11.5-14.5) % Plt Count 215 (130-400) K/uL MPV 10.1 (9.4-12.4) fL Sodium 140 (136-145) mmol/L Potassium 3.7 (3.5-5.1) mmol/L Chloride 105 (98-107) mmol/L Carbon Dioxide 27 (21-32) mmol/L Anion Gap 8 (3-11) BUN 64 H (6-23) mg/dl Creatinine 3.27 H (0.6-1.4) mg/dl Est Cr Clr Drug Dosing 11.4 ml/min Est GFR ( Amer) 19.6 ml/min Est GFR (Non-Af Amer) 16.9 ml/min BUN/Creatinine Ratio 19.6 (10-20) Glucose 106 H (70-99(Fasting)) mg/dl Calcium 8.1 L (8.5-10.1) mg/dl PG Care Time/CCT Total # of Minutes Spent Total Time Spent with Patient: Total time spent is greater than 50% in coordination of care (as documented) at patient's floor/unit and/or counseling patient: Coding Level of Care Code 14775 Subseq Hosp Care Lvl 2 Diagnoses Complication, blocked Galloway catheter T83.091A Encounter type: initial encounter Acute renal failure N17.9 Acute renal failure type: unspecified Anemia D64.9 Prostate cancer C61 UTI (urinary tract infection) N39.0 Protein-calorie malnutrition, severe E43 (1) Acute renal failure Acute renal failure type: unspecified Qualified Code(s): N17.9 - Acute kidney failure, unspecified (2) Complication, blocked Galloway catheter Encounter type: initial encounter Qualified Code(s): T83.091A - Other mechanical complication of indwelling urethral catheter, initial encounter
[2022-11-09] MEDS: POLYETHYLENE (MIRALAX) 17 GM PACK PO SCH (16:17)
[2022-11-10] MEDS: ACETAMINOPHEN 325 MG TAB PO SCH ×2 (06:40→11:22)
[2022-11-10 07:36] LABS: Hematocrit (blood only) 23.7 % (40.1-51.0); Hemoglobin 7.3 g/dl (14.0-18.0); Mean Corpuscular Hemoglobin 25.6 pg (25.0-34.0); Mean Corpuscular Hgb Conc 30.8 g/dL (32.0-36.0); Mean Corpuscular Volume 83.2 fL (80.0-100.0); Mean Platelet Volume 10.2 fL (9.4-12.4); Platelet Count 207 K/uL (130-400); RDW Coefficient of Variation 14.8 % (11.5-14.5); RDW Standard Deviation 45.4 fL (36.4-46.3); Red Blood Count 2.85 M/uL (4.63-6.08)
[2022-11-10 08:05] LABS: Creatinine Clr Calc Pharmacy 12.7 ml/min; Est GFR (African American) 22.3 ml/min; Est GFR (Non-African American) 19.2 ml/min; Potassium 3.7 mmol/L (3.5-5.1)
[2022-11-10] MEDS: POLYETHYLENE (MIRALAX) 17 GM PACK PO SCH (09:25)
[2022-11-10] MEDS: NORMOSOL-R 1,000 ML IV SCH (09:25)
[2022-11-10 10:24] LABS: Iron 26 mcg/dl (35-175); Total Iron Binding Cap Calc 196 mcg/dl (250-450); Transferrin (FE) Percent Satur 13 % (20-50); Unsaturated Iron Binding Cap 170 mcg/dl (155-355)
[2022-11-10] MEDS: levoFLOXacin/D5W 500 MG/100 ML BAG IV SCH (11:19)
--- NOTE | 2022-11-10 12:25 | Discharge Summary ---
Date of Service November 10, 2022 Admission HPI Per Admitting Provider Matt Poe is an 82yo M with a past medical history of recurrent UTI, recurrent catheter obstruction, prostate cancer with suspected metastasis presented with recurrent obstruction and clot. Galloway was exchanged x2 in ER and patient had recurrent obstruction with difficulty with output. Had a infected appearing UA and was recommended for admission for recurrent obstruction, CBI, and treatment of UTI with urology consult. 1 Matt is seen at the bedside with his family present. They report that he was in his normal state of health, but has been fighting prostate cancer for many years with chronic catheterization until yesterday around 4 PM. He had a Galloway exchange yesterday, yesterday afternoon developed worsening suprapubic pain and decreased urine output. Had a Galloway exchange again, and in the ER with pink urine and clots flushed. Following this he continued to have pain and minimal output, and reobstruction and stopped draining again in ER which point medicine was consulted for admission, urology was consulted for catheter exchange evaluation. Patient is uncomfortable and very agitated at bedside, history is collected with the assistance of family at bedside. He reports he does have a latex allergy, this has been updated in the chart. He reports he would like medications for pain, he and his family note that with morphine he has become extremely delirious and they have had bad experiences with family members declining rapidly after narcotic analgesia. It is their preference to use 1 or 2 doses at the minimum doses at time of admission, but avoid this if at all possible during admission. Patient denies recent fever, chills, sweats, nausea, vomiting. Does endorse suprapubic pain as noted. Does not use medical marijuana, alcohol, or tobacco. Full code. Principal Diagnosis KIM,Galloway-catheter associated UTI, Anemia Discharge Exam Constitutional WD/WN, vitals as above Eyes + anicteric sclerae Neck trachea midline, no thyromegaly Respiratory normal respiratory effort, lungs clear to auscultation Cardiovascular RRR, no murmur, no edema Chest (Breasts) Chest: normal inspection of chest Gastrointestinal (Abdomen) normal bowel sounds, soft, nontender, no hepatosplenomegaly Musculoskeletal Extremities: extremities normal to inspection; no cyanosis and no clubbing Skin no rashes, warm and dry Neurologic moves all extremities and awake; no focal motor deficits Psychiatric A+Ox3, euthymic affect Genitourinary + penis abnormality (Galloway in place draining clear, yellow urine) Lymphatic no lymphedema Discharge Data Allergies Allergy/AdvReac Type Severity Reaction Status Date / Time Latex, Natural Rubber AdvReac Rash, skin Verified 11/07/22 00:50 swelling morphine AdvReac Verified 11/07/22 00:50 Consultations 11/07/22 02:57 Consult Urology Routine Ordered Studies 11/07/22 02:57 US Kidney Bladder [US renal/blad retro comp] Routine Hospital Course (1) Complication, blocked Galloway catheter: Pt is an 82-year-old man admitted for blocked indwelling Galloway catheter and KIM. Current prostate cancer with poor prognosis as patient has refused most treatment. Exchanged Galloway Continue tx of UTI with levofloxacin 500 mg Q48 hours. Procalcitonin 1.79 Afebrile. Urine culture with 3 organisms growing, BCxs NGTD but would finish out a 10 day course of abx empirically (2) Acute renal failure: Most likely obstructive secondary to blocked catheter. 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 Other lytes ok, making urine. Follow BMP in 2 days as an outpt, stable for discharge to home advised to drink plenty of fluids (3) Anemia: Patient with hemoglobin level of 7.9 November 06, 2022. Previous hemoglobin 05/28/2022 was 9.6 Hemoglobin remains low today at 7.3 and stable from previous, no further hematuria MCV within normal limits Iron studies 06/07/2022 were within normal limits but now with transferrin saturation of 13% Most likely anemia of chronic disease and some blood loss from hematuria, Fe deficiency -follow CBC in 2 days as outpatient -start ferrous sulfate 325mg po daily along with stool softener follow as outpt (4) Prostate cancer: Patient has refused treatment other than Lupron Will defer outpatient management to urology and oncology-advised pt to f/u with Oncology after discharge (5) UTI (urinary tract infection): as above (6) Protein-calorie malnutrition, severe: BMI=16 and hx prostate cancer is evaluated by RD and documented with 14% wt loss x 6 months, severe muscle loss to temples and clavicle region; severe malnutrition Secondary to active malignancy Continue with protein supplements as tolerated. Appreciate Sleeping Car Porter input Plan DVT prophylaxis: Hold chemical prophylaxis due to hematuria as well as anemia. Had SCDs Dispo-stable for dc to home, PT recommends home, pt declines home health Total Time Total Time Spent Total Time Spent (In Minutes): 35 min Discharge Plan Discharge Items Patient Disposition: Home - Self-Care Reason For Visit: RECURRENT CATHETER OBSTRUCTION, CLOTS Discharge Diagnosis: UTI, Galloway catheter blockage, Acute kidney injury, Anemia Condition on Discharge: Fair Activity: As commented below Lifting: Gradually increase as tolerated Bathing: No limitations Exercise/Sports: Gradually increase as tolerated Non-emergency contact: Primary Care Provider and Urologist Call non-emergency contact if: you have any medication questions, your symptoms worsen and you have a fever Follow-up/Referrals: Ankur Aden MD [Primary Care Provider] - (Follow up within 1-2 weeks.) [facility],Nurse [FAKE FOR SCHEDULES] - 11/20/22 10:00 am Diet: Regular Ambulatory Orders: Basic Metabolic Panel (Routine) Timeframe: 2 Days Location: Determined by Patient Ordered By: Dodie Salazar Complete Blood Count with Diff (Timed) Timeframe: 2 Days Location: Determined by Patient Ordered By: Dodie Arriaza Attending Provider Instructions: You developed kidney failure from a blocked Galloway catheter. Your kidney function was improving but is still not all the way back to normal. Please continue to drink plenty of fluids. You will need to have blood drawn on Saturday to check your kidney function and your blood count (because of your anemia). You also had a urinary tract infection and will need to finish out the course of antibiotics as prescribed. You should take an iron pill for your anemia. This can cause dark stools and constipation so you may need to take a stool softener or laxative along with it. Please follow up with your Urologist as scheduled for catheter exchange. Urology is suggesting that you make a follow up appointment with Oncology to discuss any possible treatments for your prostate cancer. Pending Studies at Discharge: No Stand-Alone Forms: My e[employer], Smoking Cessation Medications and DC Order Prescriptions: New levofloxacin 500 mg tablet 500 mg PO Q48H Qty: 3 0RF ferrous sulfate 325 mg (65 mg iron) tablet 325 mg PO DAILY Qty: 30 0RF Rx Instructions: Over the counter docusate sodium 100 mg capsule 100 mg PO BID Qty: 60 0RF Rx Instructions: Over the counter Continued acetaminophen [Tylenol Extra Strength] 500 mg Tablet 1,000 mg PO DIRECTED PRN (Reason: Pain) Discharge Orders: Discharge Order (Routine); Ordered 11/10/22 Ordered By: Dodie Salazar Admission Data Admit Date/Time: 11/07/22 00:29 Attending Provider: Dodie Salazar Admit Provider: Adebayo Jones Primary Care Provider: Ankur Aden Other Providers: Maxim Mcdonough ; Ankur Montes Coding Level of Care Code D/C DAY MANAGEMENT >30 MINS Diagnoses Complication, blocked Galloway catheter T83.091A Encounter type: initial encounter Acute renal failure N17.9 Acute renal failure type: unspecified Anemia D64.9 Prostate cancer C61 UTI (urinary tract infection) N39.0 Protein-calorie malnutrition, severe E43
[2022-11-11 06:19] LABS: A calco-baum cmplx NotReported Not Detected (NotDetected); Bact fragilis Not Reported Not Detected (NotDetected); C auris Not Reported Not Detected (NotDetected); CTX-M Resistant Gene Not Detected (NotDetected); Calbicans Not Reported Not Detected (NotDetected); Candida glabrata Not Reported Not Detected (NotDetected); Candida krusei Not Reported Not Detected (NotDetected); Cneoformans/gatti Not Reported Not Detected (NotDetected); Cparapsilosis Not Reported Not Detected (NotDetected); Ctropicalis Not Reported Not Detected (NotDetected); E cloacae compx Not Reported Not Detected (NotDetected); Efaecalis Not Reported Not Detected (NotDetected); Efaecium Not Reported Not Detected (NotDetected); Enterobacterales DETECTED (NotDetected); Enterobacterales Not Reported DETECTED (NotDetected); Escherichia coli Not Reported Not Detected (NotDetected); H influenzae Not Reported Not Detected (NotDetected); IMP Resistant Gene Not Detected (NotDetected); K aerogenes Not Reported Not Detected (NotDetected); KPC Resistant Gene Not Detected (NotDetected); Koxytoca Not Reported DETECTED (NotDetected); Kpneumoniae grp Not Reported Not Detected (NotDetected); Lmonocyt Not Reported Not Detected (NotDetected); N meningitidis Not Reported Not Detected (NotDetected); NDM Resistant Gene Not Detected (NotDetected); OXA 48 Like Resistant Gene Not Detected (NotDetected); P aeruginosa Not Reported Not Detected (NotDetected); Proteus spp Not Reported Not Detected (NotDetected); Salmonella spp Not Reported Not Detected (NotDetected); Smarcescens Not Reported Not Detected (NotDetected); Staph lugdunensis Not Reported Not Detected (NotDetected); Staph spp. Not Reported Not Detected (NotDetected); Staphaureus Not Reported Not Detected (NotDetected); Staphepi Not Reported Not Detected (NotDetected); Stenmaltophilia Not Reported Not Detected (NotDetected); Strep agal(GrpB) Not Reported Not Detected (NotDetected); Strep pneum Not Reported Not Detected (NotDetected); Strep pyog (GrpA) Not Reported Not Detected (NotDetected); Strep spp Not Reported Not Detected (NotDetected); VIM Resistant Gene Not Detected (NotDetected); mcr-1 Colistin Resistant Gene Not Detected (NotDetected)
--- NOTE | 2022-11-11 17:00 | Communication Note ---
Date of Service: November 11, 2022 Informed by lab of positive blood culture. Gram-negative rodsnot yet speciated. Called patientcaregiver answered, notes patient is not very communicative on a normal day, but she is who looks after him. Discussed the situationshe notes that he is continuing to do better and looking like he is on the mend since his discharge. No fevers, better appetite, better overall status. Discussed plan of care would likely be to finish out a course of Levaquin as prescribed, but that should he show worsening/fevers/anything else, certainly it would be reasonable to bring him back. He is due for follow-up CBC/BMP tomorrow, I encouraged her to keep this follow-up. We will sign out to our team to continue to follow his cultures to ensure sensitivities to Levaquin, but given his course of antibiotics, and overall improvement, it does not appear that a change in course is warranted at this time.
== END 2022-11-10 14:14 | disposition home or self-care (01) ==
LOC: ED 19:19 → EDINP 11-07 00:29 → INTOOBSV 11-07 00:29 → SUATTDRO 11-07 00:29 → 3N 11-07 02:57
DX: Y84.6 Urinary catheterization as the cause of abnormal reaction of the patient, or of later complication, without mention of misadventure at the time of the procedure; T83.091A Other mechanical complication of indwelling urethral catheter, initial encounter; N18.9 Chronic kidney disease, unspecified; N39.0 Urinary tract infection, site not specified; E43 Unspecified severe protein-calorie malnutrition; R05.1 Acute cough; D62 Acute posthemorrhagic anemia; Z91.040 Latex allergy status; T83.511A Infection and inflammatory reaction due to indwelling urethral catheter, initial encounter; N17.9 Acute kidney failure, unspecified; C61 Malignant neoplasm of prostate